=== PATIENT | female | born 1955 | race Caucasian/White ===

== ENCOUNTER 2022-07-07 22:33 | Emergency (ER) | payer OTHER, SELFPAY ==
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
[2022-07-07 22:42] VITALS: BP 129/91; PULSE 64; RESP 16; TEMP 36.1; O2SAT 98; BMI 27.4
[2022-07-07 23:51] VITALS: BP 138/74; PULSE 65; RESP 16; TEMP 36.4; O2SAT 99
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
== END 2022-07-08 01:39 | disposition home or self-care (01) ==
PROVIDERS: Emergency Provider Internal Medicine
DX: S16.1XXA Strain of muscle, fascia and tendon at neck level, initial encounter (principal); V43.62XA Car passenger injured in collision with other type car in traffic accident, initial encounter; Y93.89 Activity, other specified; Y92.414 Local residential or business street as the place of occurrence of the external cause; Y99.9 Unspecified external cause status
CPT/HCPCS: 72125; 99282; 99284

== ENCOUNTER 2022-08-20 11:27 | Outpatient (REF) | payer OTHER, SELFPAY ==
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
== END 2022-08-20 11:28 | disposition home or self-care (01) ==
LOC: HO.XRAY 11:27
PROVIDERS: Visit Provider Chiropractor
DX: M54.50 Low back pain, unspecified (principal)
CPT/HCPCS: 72110

== ENCOUNTER 2024-04-07 12:33 | Outpatient (AMB) | payer OTHER, SELFPAY ==
--- NOTE | 2024-04-07 12:38 | A.OFFPC_ITS ---
Vital Signs 04/07/24 12:57 Height 5 ft 4.17 in Weight 177 lb 2 oz BMI 30.2 BP 118/74 Blood Pressure Location Rt brachial Position Sitting Pulse 78 Pulse Source Pulse Oximeter Pulse Oximetry (%) 98 Oxygen Delivery Method Room Air Intake Visit Reasons: new patient to establish Splitting Machine Operator Required: No Accompanied by: Self / Same As Patient Allergies Gadolinium-Containing Contrast Medi Allergy (Severe, Verified 04/07/24 13:24) allergice ibuprofen [From Advil] Adverse Reaction (Intermediate, Verified 04/07/24 13:24) sensitivity adhesive tape Adverse Reaction (Unknown, Verified 04/07/24 13:24) Sensitivity codeine Adverse Reaction (Verified 04/07/24 13:24) Unknown Sulfa (Sulfonamide Antibiotics) Adverse Reaction (Verified 04/07/24 13:24) Unknown Medication List - Last Reconciled 04/07/24 by Rodrigo Kelly PA-C [id number] 250-250-65 mg (Excedrin Extra Strength) 2 tabs PO Q6H PRN cholecalciferol (vitamin D3) 25 mcg PO DAILY fluoxetine 20 mg PO TID lacosamide (Vimpat) 100 mg PO BID typhoid vaccin,live,attenuated (Vivotif) take 1 cap every other day for 4 doses (days 1,3,5,7); finish at least 1wk before exposure PO Tobacco use date assessed: 04/07/24 Fall risk assessment: No Falls in past year Last assessed Fall Risk: 04/07/24 Dental Screening Dental Screen Date: 04/07/24 Did you have a dental visit in the last 12 months?: Yes Did you have a dental problem in the last 6 months where you did not have access to dental care?: No Was dental information given to patient?: Patient has dentist HPI new patient to establish HPI Details Patient is a 61-year-old female here today for a new patient visit. Patient's past medical history significant for migraine disorder, , h/h/o Uterine cancer, vitamin-D deficiency and anxiety. Does not recently moved to [facility] from [facility]. Concerns--> reports having bilateral hand sensation of swelling. She does report her rings are tight. Unclear etiology at this time. Will test for rheumatoid factor and get x-rays of both hands. .. Major depressive disorder: Has been on fluoxetine 60 mg for over 25 years. She reports her mental health has been very stable. She is considering weaning off of fluoxetine as she feels he does not need this medication anymore. PLAN: We plan to reduce fluoxetine by 20 mg every 3-4 weeks .. 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 Vladimir Holt)- [place] ( [place]). Okay for PCP to follow med and prescribe her seizure medication and continue to follow. She has not had a breakthrough seizure since childhood. .. History of uterine cancer: Has had a full hysterectomy . Obstructive sleep apnea: Diagnosed many years ago, does use a CPAP machine on a nightly basis with good effect. Does need new equipment for her CPAP masks/machine. .. Vaccine: utd with COVID, tetanus, pneumonia MAmmo: Has had mammo since age 21, has had abnormal urmila in the past. .. colon cancer screening: done in 2018 while in [place]-normal repeat 10 years [facility] Medical History (Updated 04/07/24 @ 13:39 by Rodrigo Kelly PA-C) Microscopic hematuria Hyperlipemia Refractive error Grand mal seizure Family history of sudden cardiac in daughter Chronic headaches Hemorrhoids Depression Osteoarthritis of knee Surgical History S/P arthroscopy of right knee Family History Father Glaucoma Maternal Aunt CAD (coronary artery disease) Paternal Grandmother CAD (coronary artery disease) Maternal Aunt Breast cancer Mother No problems noted. Maternal Grandmother Cancer of brain Social History Housing: House Alcohol intake: current Alcohol intake frequency: holidays/special occasions only Alcohol type: wine Patient Tobacco Use Status: Former Tobacco user e-Cigarette/Vaping Use: Never Used service: No Current occupational status: retired Current occupational exposures/hazards: No Cognitive needs: No Hearing needs: No Vision needs: No Questionnaire PHQ-9 Over the last 2 weeks, how often have you been bothered by any of the following problems? 1. Little interest or pleasure in doing things: not at all 2. Feeling down, depressed, or hopeless: not at all 3. Trouble falling or staying asleep, or sleeping too much: not at all 4. Feeling tired or having little energy: not at all 5. Poor appetite or overeating: not at all 6. Feeling bad about yourself - or that you are a failure or have let yourself or your family down: not at all 7. Trouble concentrating on things, such as reading the newspaper or watching television: not at all 8. Moving or speaking so slowly that other people could have noticed. Or the opposite - being so fidgety or restless that you have been moving around a lot more than usual: not at all 9. Thoughts that you would be better off or of hurting yourself in some way: not at all Total score: 0 Depression Screening Interpretation: Negative Depression Screening Done: Yes 23150 - PHQ-9 Billing: Yes Source: Developed by Drs. Leo Liu, Marilynn Reilly, Gerry Dos Santos and colleagues, with an educational skyla from [employer]. Thrive Questionnaire Date Thrive assessed: 04/07/24 I am a: Patient What is your living situation today?: I have a steady place to live Within the past 12 months, did the food you bought not last and you didn't have the money to get more?: Never true Within the past 12 months, did you worry whether your food would run out before you got money to buy more?: Never true Do you have trouble paying for medicines?: No Do you have trouble getting transportation to medical appointments?: No Do you have trouble paying your heating and electricity bill?: No Do you have trouble taking care of your child, family member or friend?: No Do you have trouble with day-to-day activities such as bathing, preparing meals, shopping, managing finances, etc.?: No Are you currently unemployed and looking for a job?: No Are you interested in more education?: No Please select the resources that you would like help with: None Currently or been in a relationship where the following occur: no concerns reported THRIVE Score: 0 AUDIT C Alcohol Use Questionnaire (AUDIT-C) 1. How often do you have a drink containing alcohol?: Monthly or less 2. How many drinks containing alcohol do you have on a typical day when you are drinking?: 1 or 2 Total Score: 1 POLY-7 AMB Questionnaire POLY-7 Date POLY - 7 assessed: 04/07/24 Feeling nervous, anxious, or on edge: 0 = Not at all Not being able to stop or control worryin = Not at all Worrying too much about different things: 0 = Not at all Trouble relaxin = Not at all Being so restless that it is hard to sit still: 0 = Not at all Becoming easily annoyed or irritable: 0 = Not at all Feeling afraid as if something awful might happen: 0 = Not at all Total POLY-7 score (0-4 normal; 5-9 mild; 10-14 moderate; 15-21 severe): 0 Source: Developed by Drs. Leo Liu, Marilynn Reilly, Gerry Dos Santos and colleagues, with an educational skyla from [employer]. POLY-7 Assessment Billing POLY-7 Assessment Tool: POLY-7 Assessment 70884 Review of Systems Const Denies headache(s) Eyes Denies loss of vision ENT Denies vertigo, Denies dizziness, Denies headache(s) and Denies sore throat Card Denies chest pain, Denies leg edema and Denies lightheadedness Resp Denies cough, Denies hemoptysis and Denies wheezing GI Denies abdominal pain, Denies melena, Denies constipation, Denies diarrhea and Denies vomiting Denies urinary frequency, Denies dysuria and Denies urinary urgency Musc Denies arthralgias, Denies joint swelling, Denies numbness and Denies tingling Neuro Denies Abnormal speech present, Denies behavioral changes, Denies vertigo, Denies dizziness, Denies headache(s), Denies loss of vision, Denies memory loss, Denies numbness and Denies tingling Psych Denies anxiety, Denies behavioral changes, Denies depression, Denies memory loss and Denies panic attacks Dre/Lymph Denies easy bleeding and Denies easy bruising Aller/Immun Denies wheezing Physical exam (Primary Care) Vital Signs: Last Vital Signs Pulse 78 04/07/24 12:57 BP 118/74 04/07/24 12:57 Pulse Ox 98 04/07/24 12:57 Oxygen Delivery Method Room Air 04/07/24 12:57 BMI result Body Mass Index 30.2 BMI Assessment/Plan discussion: High BMI High, discussed plan: lifestyle, weight reduction, dietary and physical activity Tobacco/Smoking Status: Tobacco use Status Tobacco use date assessed 04/07/24 04/07/24 13:02 Patient Tobacco Use Status Former Tobacco user 04/07/24 13:29 e-Cigarette/Vaping Use Never Used 04/07/24 13:22 PHQ-9: PHQ-9 Score PHQ-9: Total score 0 04/07/24 13:38 Depression Screening Interpretation: Negative Thrive Assessment: Date of Thrive Assessment Date Thrive assessed 04/07/24 04/07/24 13:02 Currently or been in a relationship where the following occur: no concerns reported Const General: healthy appearing, no acute distress, alert and awake Nutritional Appearance: well nourished Orientation/consciousness: oriented to person, oriented to place and oriented to time HENMT Ears: TM's normal bilaterally General nose exam: Normal nasal mucous membranes and turbinates present Eyes Conjunctivae: conjunctivae normal Sclerae: sclerae normal Pupils: Equal, round and reactive pupils present Neck Neck: Yes no lymphadenopathy and Yes no JVD Thyroid: Thyroid normal Carotids: no bruits Resp Effort & Inspection: normal respiratory effort and not tachypneic Auscultation: no crackles, no rales, no rhonchi and no wheezes Cardio Rate: regular rate Rhythm: regular rhythm Heart sounds: no murmurs and normal S1 and S2 GI Palpation (GI): Soft to palpation, nontender, no hepatomegaly and no splenomegaly Auscultation: normal bowel sounds Skin General skin exam: no rashes or lesions noted and dry skin Neuro General: oriented to person, oriented to place and oriented to time Cranial nerves: Yes Equal, round and reactive pupils present Speech: No Abnormal speech present Gait exam (Neuro): Normal gait present Motor exam (neuro): no tremor noted Extrem Right upper extremity: full ROM Left upper extremity: full ROM Right lower extremity: full ROM; no edema Left lower extremity: full ROM; no edema Psych Mental Status: mental status grossly normal Speech and movement: Normal speech and movement present Affect: normal affect Attitude: cooperative Thought process: Normal thought process present Assessment and Plan Assessment & Plan (1) Seizure disorder: Code(s): G40.909 - Epilepsy, unspecified, not intractable, without status epilepticus Plan: Has had a long history since childhood of grand mal seizure disorder. Has been on many different seizure medications in the past and found that Vimpat has been successful. Was followed by a neurologist in [place] and her seizure disorder has been very stable. (2) History of hysterectomy: Code(s): Z90.710 - Acquired absence of both cervix and uterus Plan: Has had history endometrial cancer. Did undergo a full hysterectomy. (3) Screening for diabetes mellitus (DM): Code(s): Z13.1 - Encounter for screening for diabetes mellitus (4) Borderline high cholesterol: Code(s): E78.9 - Disorder of lipoprotein metabolism, unspecified Plan: Has had a history of borderline high cholesterol. She was discussing being placed on a statin with her previous PCP. Will recheck fasting lipid panel with goal LDL to be below 160 (5) MDD (major depressive disorder), recurrent episode, mild: Code(s): F33.0 - Major depressive disorder, recurrent, mild Plan: PHQ-9 score 0 today in office. Has had a history major depressive disorder. She has been on fluoxetine 60 mg for quite some time. She is interested in weaning off of his medication. (6) History of endometrial cancer: Code(s): Z85.42 - Personal history of malignant neoplasm of other parts of uterus Plan: Was seeing a science professor in [place], did have a full hysterectomy with lymph node resection years ago. Still would like science professor evaluations on a 2-3 year basis. (7) Bilateral hand swelling: Code(s): M79.89 - Other specified soft tissue disorders Plan: Will send for x-rays to evaluate both hands (8) LONNIE (obstructive sleep apnea): Code(s): G47.33 - Obstructive sleep apnea (adult) (pediatric) Plan: Has a long history of obstructive sleep apnea. Does use a CPAP machine on a nightly basis with good effect on her sleep. Orders: Orders Complete Blood Count no Diff 04/07/24 Z13.1 - Encounter for screening for diabetes mellitus ROSA Reflex Titer and Pattern 04/07/24 M79.89 - Other specified soft tissue disorders Rheumatoid Factor 04/07/24 M79.89 - Other specified soft tissue disorders MM screening mammo BI 04/07/24 Z12.31 - Encounter for screening mammogram for malignant neoplasm of breast Lipid Panel 04/07/24 E78.9 - Disorder of lipoprotein metabolism, unspecified Comprehensive [place]. Panel Fast 04/07/24 Z13.1 - Encounter for screening for diabetes mellitus XR hand RT 2V 04/07/24 M79.89 - Other specified soft tissue disorders XR hand LT 2V 04/07/24 M79.89 - Other specified soft tissue disorders Medications: New fluoxetine administer in the morning and at noon/midday 20 mg PO TID 90 days 270 tabs 1RF F33.0 - Major depressive disorder, recurrent, mild Changed From lacosamide (Vimpat) 100 mg PO BID 30 tabs 0RF G40.909 - Epilepsy, unspecified, not intractable, without status epilepticus To lacosamide (Vimpat) 100 mg PO BID 90 days 180 tabs 1RF G40.909 - Epilepsy, unspecified, not intractable, without status epilepticus Coding Level of Care Code New Pt Level 4 (73503) Diagnoses Seizure disorder G40.909 History of hysterectomy Z90.710 Screening for diabetes mellitus (DM) Z13.1 Borderline high cholesterol E78.9 MDD (major depressive disorder), recurrent episode, mild F33.0 History of endometrial cancer Z85.42 Bilateral hand swelling M79.89 LONNIE (obstructive sleep apnea) G47.33 Additional Codes POLY-7 Assessment Billing - POLY-7 Assessment Tool: POLY-7 Assessment 87770 ([id number])
[2024-04-07 12:57] VITALS: BP 118/74; PULSE 78; O2SAT 98; BMI 30.2
== END 2024-04-07 13:41 | disposition home or self-care (01) ==
PROVIDERS: Visit Provider Physician Assistant
DX: G40.909 Epilepsy, unspecified, not intractable, without status epilepticus (principal); F33.0 Major depressive disorder, recurrent, mild; Z90.710 Acquired absence of both cervix and uterus; Z13.1 Encounter for screening for diabetes mellitus; E78.9 Disorder of lipoprotein metabolism, unspecified; Z85.42 Personal history of malignant neoplasm of other parts of uterus; M79.89 Other specified soft tissue disorders; G47.33 Obstructive sleep apnea (adult) (pediatric)
CPT/HCPCS: 99204

== ENCOUNTER 2024-04-15 08:32 | Outpatient (REF) | payer OTHER, SELFPAY ==
--- NOTE | ~2024-04-15 | XR_ITS ---
EXAMINATION: XR HAND, BILATERAL CLINICAL INFORMATION: Bilateral hand pain. COMPARISON: None available. TECHNIQUE: 3 views of each hand. FINDINGS: Mild-moderate osteoarthritis of the 1st CMC joint bilaterally. Moderate osteoarthritis also of the 1st interphalangeal joint. Mild degenerative changes of the interphalangeal joints which appear bilateral and symmetric. No erosions. No acute osseous abnormality. XR/XR hand RT 2V IMPRESSION: [id number] degenerative changes of both hands as described.
--- NOTE | ~2024-04-15 | XR_ITS ---
EXAMINATION: XR HAND, BILATERAL CLINICAL INFORMATION: Bilateral hand pain. COMPARISON: None available. TECHNIQUE: 3 views of each hand. FINDINGS: Mild-moderate osteoarthritis of the 1st CMC joint bilaterally. Moderate osteoarthritis also of the 1st interphalangeal joint. Mild degenerative changes of the interphalangeal joints which appear bilateral and symmetric. No erosions. No acute osseous abnormality. XR/XR hand LT 2V IMPRESSION: [id number] degenerative changes of both hands as described.
[2024-04-15 09:35] LABS: Hematocrit 39.5 % (37.0-47.0); Hemoglobin 12.8 g/dl (12.0-16.0); Mean Corpuscular HGB Conc 32.4 g/dl (31.0-35.0); Mean Corpuscular Hemoglobin 30.4 pg (27.0-33.0); Mean Corpuscular Volume 93.8 fL (80.0-98.0); Mean Platelet Volume 11.4 fL (9.4-12.3); Platelet Count 239 X10*3/uL (160-400); Red Blood Count 4.21 X10*6/uL (4.20-5.50); White Blood Count 4.6 X10*3/uL (4.8-10.8)
[2024-04-15 09:55] LABS: Rheumatoid Factor < 13.0 IU/mL (<15.0)
[2024-04-15 10:02] LABS: Alanine Aminotransferase 14 U/L (0-31); Albumin Level 4.1 g/dL (3.5-5.0); Alkaline Phosphatase 90 U/L (39-117); Anion Gap 13 (12-20); Aspartate Amino Transferase 18 U/L (5-31); Bilirubin Total 0.3 mg/dL (0.0-1.0); Blood Urea Nitrogen 11 mg/dL (9-16); Calcium 9.3 mg/dL (8.4-10.2); Carbon Dioxide 25 mmol/L (22-29); Chloride 104 mmol/L (96-108); Cholesterol 203 mg/dL (<200); Estimated Glomerular Filt Rate > 60; Glucose Fasting 86 mg/dL (60-99); HDL Cholesterol 57 mg/dL (>40); LDL Cholesterol Calculated 129 mg/dL (<100); Potassium 4.3 mmol/L (3.3-5.1); Sodium 138 mmol/L (135-145); Total Protein 7.1 g/dL (6.5-8.0); Triglycerides 89 mg/dL (<150)
[2024-04-19 14:44] LABS: Anti Nuclear Antibody Screen NEGATIVE (NEGATIVE)
== END 2024-04-15 08:33 | disposition home or self-care (01) ==
LOC: HO.LAB 08:32
PROVIDERS: PCP Physician Assistant; Visit Provider Physician Assistant
DX: M79.89 Other specified soft tissue disorders (principal); E78.9 Disorder of lipoprotein metabolism, unspecified; Z13.1 Encounter for screening for diabetes mellitus; M79.642 Pain in left hand; M79.641 Pain in right hand; M18.0 Bilateral primary osteoarthritis of first carpometacarpal joints
CPT/HCPCS: 36415; 73120; 80053; 80061; 85027; 86038; 86431

== ENCOUNTER 2024-04-27 13:37 | Outpatient (REF) | payer MEDICARE, SELFPAY ==
--- NOTE | ~2024-04-27 | MM_ITS ---
EXAMINATION: MM SCREENING DIGITAL BREAST TOMOSYNTHESIS, BILATERAL CLINICAL INFORMATION: Screening. Asymptomatic. S/P bilateral, benign excisions. COMPARISON: Mammography: This study is compared with prior exams dating back to 2020. TECHNIQUE: Digital breast tomosynthesis is performed in both the craniocaudal and mediolateral oblique views along with computer-aided detection (CAD). Synthesized 2D images are generated from the tomosynthesis. FINDINGS: There are scattered areas of fibroglandular density (ACR BI-RADS breast composition Category b). There are no significant masses, abnormal calcifications, or other abnormalities. Bilateral post-surgical changes are present. MM/MM tomosynthesis screening BI IMPRESSION: No mammographic evidence of malignancy. ASSESSMENT: BI-RADS BI-RADS 2 - Benign Findings RECOMMENDATION: Routine annual mammography screening. 1 year F/U This examination should not preclude the clinical evaluation of a suspicious palpable abnormality. This patient's information was entered into a reminder system with a target due date for their next mammogram.
== END 2024-04-27 13:38 | disposition home or self-care (01) ==
LOC: HO.MAMMO 13:37
PROVIDERS: PCP Physician Assistant; Visit Provider Physician Assistant
DX: Z12.31 Encounter for screening mammogram for malignant neoplasm of breast (principal)
CPT/HCPCS: 77063; 77067

== ENCOUNTER → 2024-04-27 14:00 | Outpatient (BNV) | payer MEDICARE, SELFPAY | PROVIDERS: PCP Physician Assistant; Visit Provider Radiology Diagnostic Radiology | DX: Z12.31 Encounter for screening mammogram for malignant neoplasm of breast (principal) | CPT/HCPCS: 77063; 77067 ==

== ENCOUNTER 2024-05-22 10:23 | Emergency (ER) | payer MEDICARE, SELFPAY ==
--- NOTE | ~2024-05-22 | XR_ITS ---
EXAMINATION: XR KNEE, RIGHT XR ANKLE, LEFT CLINICAL INFORMATION: Fall. Pain. COMPARISON: None. TECHNIQUE: AP, bilateral oblique, and lateral views of the right knee. AP, lateral, and mortise views of the left ankle were obtained. FINDINGS: Right knee: Orthopedic screws related to remote tibial tuberosity translocation. No evidence of hardware complication. Moderate tricompartmental joint space narrowing with prominent marginal osteophytes. No concerning lytic or blastic osseous lesion. No fracture or dislocation. Small to moderate knee joint effusion. Left ankle: No acute fracture or dislocation. The ankle mortise is maintained. No joint space narrowing or marginal osteophytes. Moderate plantar calcaneal spur. Mild circumferential soft tissue swelling. XR/XR knee RT 3V IMPRESSION: RIGHT KNEE: No acute fracture or dislocation. Moderate tricompartmental osteoarthritis. Small to moderate knee joint effusion. LEFT ANKLE: Mild circumferential soft tissue swelling without acute osseous abnormality. Moderate plantar calcaneal spur.
--- NOTE | ~2024-05-22 | XR_ITS ---
EXAMINATION: XR KNEE, RIGHT XR ANKLE, LEFT CLINICAL INFORMATION: Fall. Pain. COMPARISON: None. TECHNIQUE: AP, bilateral oblique, and lateral views of the right knee. AP, lateral, and mortise views of the left ankle were obtained. FINDINGS: Right knee: Orthopedic screws related to remote tibial tuberosity translocation. No evidence of hardware complication. Moderate tricompartmental joint space narrowing with prominent marginal osteophytes. No concerning lytic or blastic osseous lesion. No fracture or dislocation. Small to moderate knee joint effusion. Left ankle: No acute fracture or dislocation. The ankle mortise is maintained. No joint space narrowing or marginal osteophytes. Moderate plantar calcaneal spur. Mild circumferential soft tissue swelling. XR/XR ankle LT 2V IMPRESSION: RIGHT KNEE: No acute fracture or dislocation. Moderate tricompartmental osteoarthritis. Small to moderate knee joint effusion. LEFT ANKLE: Mild circumferential soft tissue swelling without acute osseous abnormality. Moderate plantar calcaneal spur.
[2024-05-22 10:30] VITALS: BP 145/79; PULSE 82; RESP 16; TEMP 37.1; O2SAT 98; BMI 30.8
--- NOTE | 2024-05-22 11:24 | ED.FALL ---
HPI - Fall General Chief Complaint: Fall Stated Complaint: l Ankle R Knee Pain S/P Fall 05/20 & 05/21 Time Seen by Provider: 05/22/24 10:40 Source: patient Mode of arrival: ambulatory Limitations: no limitations History of Present Illness ED Provider: Mikala Perry APRN HPI Narrative: 69-year-old female with a history of seizure disorder, depression, uterine cancer in remission, osteoarthritis presents the ER with complaints of right knee pain and left ankle pain after 2 falls in the last 48 hours. Patient reports she initially had a fall after walking her dog landing on her right knee, right elbow and right shoulder. There was no hitting of the head or loss of consciousness. She was able to get up after this. Yesterday she had a inversion injury of the left ankle causing a twisting injury of her right knee and a 2nd fall. She does report a history of right knee surgery with a surgeon in [place]. She does not currently have an orthopedic. She reports since the fall she has had pain and swelling to the left ankle as well as the right knee. She has taken Excedrin with aspirin intermittently for pain. She denies any associated numbness, tingling, weakness of the extremities. Related Data Home Medications ?Medication ?Instructions ?Recorded ?Confirmed dudpoja-jnbajnuuygahn-hckickyl 250 2 tab PO Q6H PRN 04/07/24 04/07/24 mg-250 mg-65 mg tablet (Excedrin Extra Strength) typhoid vaccin,live,attenuated 2 See Rx Instructions PO .COMPLEX 04/07/24 04/07/24 billion unit capsule,delayed release (Vivotif) Previous Rx's ?Medication ?Instructions ?Recorded cholecalciferol (vitamin D3) 25 25 mcg PO DAILY #30 tabs 04/06/24 mcg (1,000 unit) tablet fluoxetine 20 mg tablet 20 mg PO TID 90 days #270 tabs 04/07/24 lacosamide 100 mg tablet (Vimpat) 100 mg PO BID 90 days #180 tabs 04/07/24 Allergies Allergy/AdvReac Type Severity Reaction Status Date / Time Gadolinium-Containing Allergy Severe allergice Verified 05/22/24 10:34 Contrast Medi ibuprofen [From Advil] AdvReac Intermediate sensitivity Verified 05/22/24 10:34 adhesive tape AdvReac Unknown Sensitivity Verified 05/22/24 10:34 codeine AdvReac Unknown Verified 05/22/24 10:34 Sulfa (Sulfonamide AdvReac Unknown Verified 05/22/24 10:34 Antibiotics) MRI dye AdvReac warmth Uncoded 05/22/24 10:34 Review of Systems Review of Systems: Yes all other systems are reviewed and are negative Constitutional: Constitutional: Reports no additional constitutional complaints, Denies body ache(s), Denies chills, Denies fever(s), Denies headache(s) and Denies weakness Eyes: Eyes: Reports no additional eye complaints and Denies change in vision ENT: Reports system reviewed and no additional complaints, except as documented, Denies dizziness, Denies headache(s), Denies nasal congestion, Denies nasal discharge and Denies neck pain Cardiovascular: Cardiovascular: Reports no additional cardiovascular complaints, Denies chest pain, Denies leg edema and Denies dyspnea Respiratory: Respiratory: Reports no additional respiratory complaints, Denies cough and Denies dyspnea Gastrointestinal: Gastrointestinal: Reports no additional gastrointestinal complaints, Denies abdominal pain, Denies diarrhea, Denies nausea and Denies vomiting Genitourinary: Genitourinary: Reports no additional female genitourinary complaints and Denies urinary incontinence Musculoskeletal: Musculoskeletal: Reports no additional musculoskeletal complaints, Denies back pain, Reports arthralgias, Reports joint swelling, Denies neck pain, Denies numbness and Denies tingling Integumentary/Breasts: Skin/Breast: Reports system reviewed and no additional complaints, except as docu and Denies rash Neurologic: Reports system reviewed and no additional complaints, except as documented, Denies Abnormal speech present, Denies dizziness, Denies headache(s), Denies numbness, Denies tingling and Denies weakness [facility] Past Medical History Attestation statement: The following information was validated with the patient. Source: old records reviewed and nursing notes reviewed Medical History Microscopic hematuria Hyperlipemia Refractive error Grand mal seizure Family history of sudden cardiac in daughter Chronic headaches Hemorrhoids Depression Osteoarthritis of knee Surgical History S/P arthroscopy of right knee Family History Family History Father Glaucoma Maternal Aunt CAD (coronary artery disease) Paternal Grandmother CAD (coronary artery disease) Maternal Aunt Breast cancer Mother No problems noted. Maternal Grandmother Cancer of brain Social History Social History Housing: House Alcohol intake: current Alcohol intake frequency: holidays/special occasions only Alcohol type: wine Patient Tobacco Use Status: Former Tobacco user e-Cigarette/Vaping Use: Never Used Advance Directives: No Advance Directives Information Provided: No service: No Current occupational status: retired Current occupational exposures/hazards: No Cognitive needs: No Hearing needs: No Vision needs: No Physical Exam Vital Signs: Vital Signs: Last Vital Signs Temp 97.3 F 05/22/24 12:48 Pulse 71 05/22/24 12:48 Resp 17 05/22/24 12:48 BP 129/66 05/22/24 12:48 Pulse Ox 97 05/22/24 12:48 O2 Del Method Room Air 05/22/24 12:48 BMI result Body Mass Index 30.8 Const: General: cooperative, healthy appearing, comfortable and no acute distress Orientation/consciousness: patient oriented x3 Limitations: no limitations HEENT: Head: Yes normal to inspection Ears: hearing grossly normal bilaterally General nose exam: Normal external nose present Face and sinus: Yes normal facial exam Mouth: Normal oral and palatal mucosa present Throat: Yes posterior oropharynx normal Eyes: General: appearance normal, both eyes and all related structures Pupils: Equal, round and reactive pupils present Neck: Neck: Yes normal visual inspection Chest: Chest palpation & inspection: normal inspection of the chest Resp: Effort & Inspection: normal respiratory effort Auscultation: clear to auscultation bilaterally Cardio: Rate: regular rate Rhythm: regular rhythm Peripheral pulses: Peripheral pulses 2+ throughout GI: Inspection: Yes normal to inspection Palpation (GI): Soft to palpation and nontender Auscultation: normal bowel sounds Back/Spine/Pelvis: Thoracic/Lumbar Spine: thoracic and lumbar spine normal to inspection Skin: General skin exam: no rashes or lesions noted Neuro: General: patient oriented x3, no focal motor deficits and normal sensation to monofilament Cranial nerves: Yes Equal, round and reactive pupils present Cognition (Neuro): normal cognition Speech: No Abnormal speech present Gait exam (Neuro): Normal gait present Motor exam (neuro): 5/5 motor strength present throughout Extrem: Other: Over the left lateral ankle there is swelling and ecchymosis. There is also some mild swelling over the anterior and lateral aspect. There is full active and passive range of motion. There are 2+ DP and PT pulses. Normal sensation. No posterior calf or ankle pain. No ligamental laxity. Negative Decker test To the right knee there is moderate swelling. The knee is held in partial flexion and the patient is unable to fully extend the right knee. There is tenderness over the anterior and lateral aspect. There are 2+ DP and PT pulses. Normal distal sensation. Distal range of motion is normal General: Yes normal to inspection Course Course Course Narrative: X-ray show moderate right knee effusion. Explained to patient this is likely reactive from her sprain. We will place her in Thiago wrap and recommend that she follow up with Orthopedics. Her x-rays of her left ankle show no fracture. Likely sprain. Patient placed in air splint. Reviewed worrisome signs and symptoms of when to return to the emergency room. Comfortable plan for discharge home. Procedures Orthopedic Splinting/Casting Injury #1: Side: left Lower Extremity Injury Location: ankle Lower Extremity Immobilizer: AirCast and Thiago wrap Other Orthopedic Equipment: crutches Medical Decision Making Medical Decision Making MDM Narrative: 69-year-old female with a history of seizure disorder, depression, uterine cancer in remission, osteoarthritis presents the ER with complaints of right knee pain and left ankle pain after 2 falls in the last 48 hours. Patient reports she initially had a fall after walking her dog landing on her right knee, right elbow and right shoulder. There was no hitting of the head or loss of consciousness. She was able to get up after this. Yesterday she had a inversion injury of the left ankle causing a twisting injury of her right knee and a 2nd fall. She does report a history of right knee surgery with a surgeon in [place]. She does not currently have an orthopedic. She reports since the fall she has had pain and swelling to the left ankle as well as the right knee. She has taken Excedrin with aspirin intermittently for pain. She denies any associated numbness, tingling, weakness of the extremities. Over the left lateral ankle there is swelling and ecchymosis. There is also some mild swelling over the anterior and lateral aspect. There is full active and passive range of motion. There are 2+ DP and PT pulses. Normal sensation. No posterior calf or ankle pain. No ligamental laxity. Negative Decker test To the right knee there is moderate swelling. The knee is held in partial flexion and the patient is unable to fully extend the right knee. There is tenderness over the anterior and lateral aspect. There are 2+ DP and PT pulses. Normal distal sensation. Distal range of motion is normal Will obtain x-rays. Of note patient reports limited range of motion of the right knee status post previous surgery and she tells me that she normally at baseline can not fully extend her knee. Differential Diagnosis Differential Diagnoses: The differential diagnosis associated with the presentation includes Fracture, sprain, strain, ligamental injury Low suspicion for dislocation, complex fracture, vascular injury Admission/Observation Consideration of admission/observation: Escalation of care including admission/observation considered Low suspicion for dislocation, complex fracture, vascular injury requiring advanced imaging, urgent orthopedic consultation Independent Interpretation I performed an independent interpretation of an: Plain X-Ray Interpretation: I independently reviewed the x-ray and agree with the radiology report Radiology Impression Discussion of test interpretation with radiology: I have reviewed the radiologist's reading. Radiologist Impression: [address] [address] XRay Report Signed Patient: Kirstin Chávez MR#: [id number] : 1955 Acct:[id number] Age/Sex: 69 / F ADM Date: 05/22/24 Loc: .ED Attending Dr: Ordering Physician: Mikala Puente NP Date of Service: 05/22/24 Procedure(s): XR ankle LT 2V Accession Number(s): [id number] cc: Rodrigo Kelly PA-C; Mikala Puente NP~ EXAMINATION: XR KNEE, RIGHT XR ANKLE, LEFT CLINICAL INFORMATION: Fall. Pain. COMPARISON: None. TECHNIQUE: AP, bilateral oblique, and lateral views of the right knee. AP, lateral, and mortise views of the left ankle were obtained. FINDINGS: Right knee: Orthopedic screws related to remote tibial tuberosity translocation. No evidence of hardware complication. Moderate tricompartmental joint space narrowing with prominent marginal osteophytes. No concerning lytic or blastic osseous lesion. No fracture or dislocation. Small to moderate knee joint effusion. Left ankle: No acute fracture or dislocation. The ankle mortise is maintained. No joint space narrowing or marginal osteophytes. Moderate plantar calcaneal spur. Mild circumferential soft tissue swelling. XR/XR ankle LT 2V IMPRESSION: RIGHT KNEE: No acute fracture or dislocation. Moderate tricompartmental osteoarthritis. Small to moderate knee joint effusion. LEFT ANKLE: Mild circumferential soft tissue swelling without acute osseous abnormality. Moderate plantar calcaneal spur. Tests considered The following testing was considered but not selected: Low suspicion for dislocation, complex fracture, vascular injury requiring advanced imaging Prescription Management I considered prescription management with: Pain Medication Discharge Plan Discharge Clinical Impression: Left ankle sprain, Knee effusion, right Patient Disposition: Home, Self-Care Instructions: Ankle Sprain (ED), Crutch Instructions (ED), Sprain (ED), How to Use an Elastic Bandage (ED), R.I.C.E. Treatment (ED), Cold Compress or Soak (ED) Additional Instructions: Your x-ray of your left ankle shows no fractures. This is likely a sprain. Please use the air splint or an Thiago wrap for comfort at home. Rest, ice, elevate Your x-ray of your right knee does not show any fracture. There is an effusion which is fluid within the joint. This is from the injury and will re-absorb. We do recommend using a compression bandage, resting icing and elevating the joint. You will likely need to follow up with orthopedics for your right knee as he may need additional imaging such as an MRI which we discussed. Speak to your insurance as you may need a referral from her primary care. Prescriptions: No Action cholecalciferol (vitamin D3) 25 mcg (1,000 unit) tablet 25 mcg PO DAILY Qty: 30 0RF Excedrin Extra Strength 250-250-65 mg tablet 2 tab PO Q6H PRN Vivotif 2 billion unit capsule,delayed release(DR/EC) See Rx Instructions PO .COMPLEX Rx Instructions: take 1 cap every other day for 4 doses (days 1,3,5,7); finish at least 1wk before exposure PO lacosamide [Vimpat] 100 mg tablet 100 mg PO BID 90 Days Qty: 180 1RF fluoxetine 20 mg tablet 20 mg PO TID 90 Days Qty: 270 1RF Rx Instructions: administer in the morning and at noon/midday Referrals: [facility] [place] Orthopedic Surgeons [Provider Group] - 1 week Interventions: ED Discharge Assessment Last Done: 05/22/24 12:48 Discharge Date/Time: 05/22/24 12:49 Print Language: Swiss
[2024-05-22 12:00] VITALS: BP 129/66; PULSE 71; RESP 17; TEMP 36.3; O2SAT 97
[2024-05-22 12:48] VITALS: BP 129/66; PULSE 71; RESP 17; TEMP 36.3; O2SAT 97
== END 2024-05-22 12:49 | disposition home or self-care (01) ==
PROVIDERS: Emergency Provider Emergency Medicine; PCP Physician Assistant
DX: M25.461 Effusion, right knee (principal); S93.402A Sprain of unspecified ligament of left ankle, initial encounter; W18.30XA Fall on same level, unspecified, initial encounter; Y93.K1 Activity, walking an animal; Y92.480 Sidewalk as the place of occurrence of the external cause; Y99.9 Unspecified external cause status
CPT/HCPCS: 73562; 73600; 99283

== ENCOUNTER 2024-06-08 18:35 | Outpatient (REF) | payer MEDICARE, SELFPAY ==
--- NOTE | ~2024-06-08 | MR_ITS ---
EXAMINATION: MR KNEE WITHOUT CONTRAST, RIGHT CLINICAL INFORMATION: M25.361 - Other instability, right knee. Tibial osteotomy. Fall recently. COMPARISON: Radiographs dated 05/22/2024. TECHNIQUE: MRI of the knee without contrast was performed using routine sequences on a high-field scanner. FINDINGS: MENISCI: Medial Meniscus: Inner margin fraying at the posterior root. No tears. Lateral Meniscus: Anterior horn appears macerated with complex tearing. There is a lateral extrusion of the meniscal body. LIGAMENTS: Cruciate: PCL is intact. The ACL is intact though diminutive with medial bowing produced by mass effects from the osteophytes at the lateral femoral condyle, likely due to an old injury or degenerative attrition. Collateral: Intact EXTENSOR MECHANISM: Intact ARTICULAR CARTILAGE/BONE: Chronic postoperative changes of prior tibial osteotomy are again noted. There is a linear band of edema signal and low T1 signal within the fibular head, most consistent with a nondisplaced trabecular fracture. No additional fractures are identified. There is edema signal in the posterior/proximal aspects of the medial and lateral femoral condyles which may correspond to osseous contusions. Patellofemoral Compartment: Moderate nonuniform articular cartilage loss at the patella and trochlea is more pronounced at the small medial and lateral facets with areas of full-thickness cartilage loss, cortical irregularity, and central osteophytes. There are large marginal osteophytes about the patella and trochlea. Lateral trochlear inclination angle measures 8 degrees. Sulcus angle measures 149 degrees, shallow. Trochlear facet ratio measures 0.35, consistent with relative hypoplasia of the medial facet. TT TG distance measures 1.2 cm. Medial Compartment: There is moderate nonuniform chondral thinning at the medial femoral condyle with areas of full-thickness cartilage loss, subchondral cystic change, marginal osteophytes, nonmarginal osteophytes, and subchondral edema. More mild chondral thinning at the medial tibial plateau. Large marginal osteophytes. Lateral Compartment: Blhgypat-[id number] nonuniform chondral thinning is present at the lateral femoral condyle posterior weightbearing and non-weightbearing surfaces and at the medial third of the lateral tibial plateau. More [id number] chondral thinning is present at the anterior weightbearing surface of the lateral femoral condyle and anterior aspect of the lateral tibial plateau. JOINT FLUID AND BURSAE: Moderate-sized joint effusion. Moderate-sized Castellano's cyst. A 1 cm osseous loose body is present in the lateral recess of the patellofemoral compartment. MR/MR knee RT wo con IMPRESSION: 1. Nondisplaced trabecular fracture at the fibular head. Probable osseous contusions at the posterior/proximal margins of the medial and lateral femoral condyles. 2. Ntnwlnhj-kg-[id number] tricompartmental osteoarthritis, most pronounced in the patellofemoral compartment. 3. Complex tear of the anterior horn of the lateral meniscus with lateral extrusion of the meniscal body. 4. Moderate-sized joint effusion and Castellano's cyst. 5. Diminutive ACL, likely due to degenerative attrition or an old injury.
== END 2024-06-08 18:36 | disposition home or self-care (01) ==
LOC: HO.MRI 18:35
PROVIDERS: PCP Physician Assistant; Visit Provider Physician Assistant
DX: M25.361 Other instability, right knee (principal); S89.91XA Unspecified injury of right lower leg, initial encounter
CPT/HCPCS: 73721

== ENCOUNTER 2024-06-17 08:51 | Outpatient (AMB) | payer MEDICARE, SELFPAY ==
--- NOTE | 2024-06-17 09:03 | A.OFFVIS_ITS ---
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/24 Allergies Gadolinium-Containing Contrast Medi Allergy (Severe, Verified 06/17/24 09:05) allergice ibuprofen [From Advil] Adverse Reaction (Intermediate, Verified 06/17/24 09:05) sensitivity adhesive tape Adverse Reaction (Unknown, Verified 06/17/24 09:05) Sensitivity codeine Adverse Reaction (Verified 06/17/24 09:05) Unknown Sulfa (Sulfonamide Antibiotics) Adverse Reaction (Verified 06/17/24 09:05) Unknown MRI dye Adverse Reaction (Uncoded 05/22/24 10:34) warmth HPI HPI MEAT PROCESSOR- RT knee pain, 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 Kirstin is a 69 year old female who presents today as a new patient for a evaluation of her right knee/possible left ankle injury, DOIs 05/20/24 and 05/21/24. Patient had a MRI done on 06/08/24 for her right knee. Patient report she had to fall when she was walking her dog and she lost balance leading her to fall on her right knee, then the second injury that affected her left ankle and right knee. Patient had right tibial tubercle osteotomy surgery in [place] on 2011. She mentions that she is having a lot of pain and she feels like it is getting worse. [facility] Medical History Microscopic hematuria Hyperlipemia Refractive error Grand mal seizure Family history of sudden cardiac in daughter Chronic headaches Hemorrhoids Depression Osteoarthritis of knee Surgical History S/P arthroscopy of right knee Family History Father Glaucoma Maternal Aunt CAD (coronary artery disease) Paternal Grandmother CAD (coronary artery disease) Maternal Aunt Breast cancer Mother No problems noted. Maternal Grandmother Cancer of brain Social History Housing: House Alcohol intake: current Alcohol intake frequency: holidays/special occasions only Alcohol type: wine Patient Tobacco Use Status: Former Tobacco user e-Cigarette/Vaping Use: Never Used service: No Current occupational status: retired Current occupational exposures/hazards: No Cognitive needs: No Hearing needs: No Vision needs: No Review of Systems Const All systems reviewed & are unremarkable except as noted in HPI and below Physical Exam Extrem Other: Moderate right knee effusion 5-120 degrees of motion Medial and lateral joint line tenderness to palpation Results Reviewed Results Reviewed: Moderate to severe right knee osteoarthritis most prominent in the patellofemoral joint. She is status post tibial tubercle osteotomy as well. Her MRI redemonstrates severe tricompartmental disease Assessment & Plan Assessment & Plan (1) Localized osteoarthritis of right knee: Code(s): M17.11 - Unilateral primary osteoarthritis, right knee Category: Medical Plan: This is a 61-year-old woman with severe osteoarthritis of the right knee. She h as had prior surgery and there is evidence of patellofemoral disease that is severe. We discussed treatment options including injections and nonoperative management as well as operative management. She feels that she would like to be active and can not be and would like to pursue a knee replacement. I think this is reasonable given her prior surgery and injections but I would recommend that she work on range of motion prior as I think there is an element of acute inflammation. I discussed this with her. I will schedule her surgery for 3 months and I would see her back in approximately 6 weeks. I discussed the risks benefits and alternatives including but not limited to the risk of pain, infection, stiffness, need for further surgery as well as potential medical complications such as blood clots, pulmonary embolism and cardiac complications. Patient Instructions: Scribed by Lesli Jimenez medical malpractice paralegal, for Ayse Olmos PA-C on 06/17/2024 at 9:01 am, EST.? Coding Level of Care Code New Pt Level 4 (00088) Diagnoses Localized osteoarthritis of right knee M17.11
== END 2024-06-17 09:49 | disposition home or self-care (01) ==
PROVIDERS: PCP Physician Assistant; Visit Provider Physician Assistant
DX: M17.11 Unilateral primary osteoarthritis, right knee (principal)
CPT/HCPCS: 99204

== ENCOUNTER 2024-06-17 10:07 | Outpatient (REF) | payer MEDICARE, SELFPAY | END 2024-06-17 10:08 | disposition home or self-care (01) | LOC: HO.HOSX 10:07 | PROVIDERS: Visit Provider Physician Assistant | DX: M17.11 Unilateral primary osteoarthritis, right knee (principal) | CPT/HCPCS: 99202 ==

== ENCOUNTER 2024-06-23 09:00 | Outpatient (RCR) | payer MEDICARE, SELFPAY ==
--- NOTE | 2024-06-02 10:48 | MHC.OT.EP ---
[address] [phone] Occupational Therapy Plan of Care Patient Name: Kirstin Chávez Date of Evaluation: 06/02/24 Diagnosis: B/L hand pain and swelling Pain Location: Pain in B/L hands, primarily in CMCs Low resting pain, increases w/ use Pain Score: 2 Pain Scale Used: Numeric (0 - 10) Aggravating Factors: Pinching, opening containers Alleviating Factors: Heat, aspirin, Excedrin Assessment: 69 yo female presents w/ hx of hand pain and joint swelling over the past several years, but more pain recently and has had difficulty getting rings on and off. Hand x-rays show B/L CMC OA and OA in IPs. On assessment today, pt report primary pain is at B/L CMCs, tenderness to palpate base of thumb and with forceful pinching. She also has mild edema and start of small arthritic nodules on several digits, consistent w/ OA. Provocative testing also shows mild CTS B/L'ly and pt reports dropping items at times. We will continue brief course of hand therapy for education and progression of exercises for B/L hand OA and CTS w/ goal of Ind w/ HEP and self management of symptoms/pain. Frequency and Duration: The patient will be seen 1x/wk for 3 weeks Short Term Goals: Ind w/ heat/cold modalities as preferred Ind w/ joint protection (CMC) techniques Ind w/ HEP for OA and CTS Mcfp Goals: same as above Treatment Plan: Therapeutic Exercise Therapeutic Activity Home Exercise Program Splinting Neuro Re-ed Patient Education Edema Control ADL Training Paraffin MHP Cold Packs Joint Mobilization Soft Tissue Mobilization Kinesiotaping Electronically Signed By: Mey Lipscomb OTR/L CHT Please Sign and return to therapist. Thank you once again for your referral.
--- NOTE | 2024-07-29 15:24 | MHC.OT.DC ---
[address] [phone] F: [phone] Occupational Therapy Discharge Note Patient Name: Kirstin Chávez Provider: Rodrigo Kelly PA-C Diagnosis: B/L hand pain and swelling Date of Evaluation: 06/02/24 Date of Discharge: 07/29/24 Treatments to Date: 3 Cancellations to Date: 2 Discharge Status: Independent with HEP Patient Elected to Stop Discharge Summary: Kirstin was referred to OT w/ B/L hand pain and swelling. she was seen for brief course of OT with initiation of exercises and joint protection. She has not followed up in over a month for further visits, but at the time had good follow through w/ HEP and had been reporting less pain overall and increased awareness. We will discharge from OT services at this time, I anticipate she is doing well w/ home program. Electronically Signed By: Mey Lipscomb, OTR/L CHT Reviewed/agree with student documentation: Therapist: Please Sign and return to therapist, thank you for your referral.
== END 2024-07-29 15:25 | disposition home or self-care (01) ==
LOC: HO.OT 09:00
PROVIDERS: PCP Physician Assistant; Visit Provider Physician Assistant
DX: M79.89 Other specified soft tissue disorders (principal); M19.041 Primary osteoarthritis, right hand; M19.042 Primary osteoarthritis, left hand
CPT/HCPCS: 97110; 97140; 97165; 97535

== ENCOUNTER 2024-07-20 13:47 | Outpatient (AMB) | payer MEDICARE, SELFPAY ==
--- NOTE | 2024-07-20 13:48 | MHC.PC.OV ---
Intake Visit Reasons: COVID Pos. Formal Waiter/Waitress Required: No Accompanied by: Self / Same As Patient Allergies Gadolinium-Containing Contrast Medi Allergy (Severe, Verified 07/20/24 13:48) allergice ibuprofen [From Advil] Adverse Reaction (Intermediate, Verified 07/20/24 13:48) sensitivity adhesive tape Adverse Reaction (Unknown, Verified 07/20/24 13:48) Sensitivity codeine Adverse Reaction (Verified 07/20/24 13:48) Unknown Sulfa (Sulfonamide Antibiotics) Adverse Reaction (Verified 07/20/24 13:48) Unknown MRI dye Adverse Reaction (Uncoded 07/20/24 13:48) warmth Tobacco use date assessed: 04/07/24 Fall risk assessment: 2 + Falls in past year Last assessed Fall Risk: 07/20/24 Dental Screening Dental Screen Date: 04/07/24 HPI COVID Pos. HPI Details 69-year-old female with a history of seizure disorder hypercholesterolemia obstructive sleep apnea calling in for an acute problem.tested positive today, mylagia and fever last night , sore throat, runny nose, PFSH Medical History Microscopic hematuria Hyperlipemia Refractive error Grand mal seizure Family history of sudden cardiac in daughter Chronic headaches Hemorrhoids Depression Osteoarthritis of knee Surgical History S/P arthroscopy of right knee Family History Father Glaucoma Maternal Aunt CAD (coronary artery disease) Paternal Grandmother CAD (coronary artery disease) Maternal Aunt Breast cancer Mother No problems noted. Maternal Grandmother Cancer of brain Social History Housing: House Alcohol intake: current Alcohol intake frequency: holidays/special occasions only Alcohol type: wine Patient Tobacco Use Status: Former Tobacco user Tobacco use type: Cigarette e-Cigarette/Vaping Use: Never Used service: No Current occupational status: retired Current occupational exposures/hazards: No Cognitive needs: No Hearing needs: No Vision needs: No Questionnaire Thrive Questionnaire Date Thrive assessed: 04/07/24 POLY-7 AMB Questionnaire POLY-7 Date POLY - 7 assessed: 04/07/24 Source: Developed by Drs. Leo Liu, Marilynn Reilly, Gerry Dos Santos and colleagues, with an educational skyla from [employer]. Physical exam (Primary Care) Tobacco/Smoking Status: Tobacco use Status Tobacco use date assessed 04/07/24 07/20/24 13:49 Patient Tobacco Use Status Former Tobacco user 07/20/24 13:49 Tobacco use type Cigarette 07/20/24 13:49 e-Cigarette/Vaping Use Never Used 07/20/24 13:49 Thrive Assessment: Date of Thrive Assessment Date Thrive assessed 04/07/24 07/20/24 13:49 Telehealth Telehealth Telehealth Platform: Telephone (android) Location of provider rendering services: practice address Location of patient: address on file Patient Identification confirmed using: Name, : Yes Telehealth method: voice only Patient verbally consented to treatment: Yes Patient verbally consented to billing insurance company: Yes Patient informed of any privacy concerns related to visit: Yes Minutes spent on Phone/Video with Pt.: 15 Assessment and Plan Assessment & Plan (1) COVID-19 virus infection: Comment: July 20 2024 Code(s): U07.1 - COVID-19 Plan: For the sore throat can take Cepacol lozenges, discussed about Delsym to help with dry cough so she can rest and advised to increase oral fluids. Patient also can take Tylenol for chills and fever. Antiviral prescription sent in Medications: New nirmatrelvir-ritonavir 300 mg (150 mg x 2)-100 mg (Paxlovid) take TWO 150 mg tablets of nirmatrelvir with ONE 100 mg tablet of ritonavir twice daily for 5 days PO 30 ea 0RF Coding Level of Care Code Tele Est Pt Level 3 (49652) Diagnoses COVID-19 virus infection U07.1
== END 2024-07-20 16:08 | disposition home or self-care (01) ==
LOC: HO.HMCH 13:47
PROVIDERS: PCP Physician Assistant; Visit Provider Internal Medicine
DX: U07.1 COVID-19 (principal)

== ENCOUNTER → 2024-07-20 13:47 | Outpatient (BNVA) | payer MEDICARE, SELFPAY | PROVIDERS: PCP Physician Assistant; Visit Provider Internal Medicine ==

== ENCOUNTER 2024-07-29 09:04 | Outpatient (AMB) | payer MEDICARE, SELFPAY ==
[2024-07-29 09:06] VITALS: BMI 30.8
--- NOTE | 2024-07-29 09:06 | A.OFFVIS_ITS ---
Vital Signs 07/29/24 09:06 Height 5 ft 5 in Weight 185 lb BMI 30.8 Intake Visit Reasons: OV - Right knee OA - TKA in October Intake Note: Kirstin is a 69 year old female who presents today for a follow up of her right knee Moderate to severe OA. Patient report she had a fall on 05/20/24 when she was walking her dog and she lost balance leading her to fall on her right knee, then the second injury that affected her left ankle and right knee. Patient had right tibial tubercle osteotomy surgery in [place] on 2011. She mentions that she is having a lot of pain and she feels like it is getting worse. She was instructed to work on her ROM and is booked for Right TKA in October. Allergies Gadolinium-Containing Contrast Medi Allergy (Severe, Verified 07/29/24 09:06) allergice ibuprofen [From Advil] Adverse Reaction (Intermediate, Verified 07/29/24 09:06) sensitivity adhesive tape Adverse Reaction (Unknown, Verified 07/29/24 09:06) Sensitivity codeine Adverse Reaction (Verified 07/29/24 09:06) Unknown Sulfa (Sulfonamide Antibiotics) Adverse Reaction (Verified 07/29/24 09:06) Unknown MRI dye Adverse Reaction (Uncoded 07/29/24 09:06) warmth HPI HPI OV - Right knee OA - TKA in October: Details: Kirstin is a 69 year old female who presents today for a follow up of her right knee Moderate to severe OA. Patient report she had a fall on 05/20/24 when she was walking her dog and she lost balance leading her to fall on her right knee, then the second injury that affected her left ankle and right knee. Patient had right tibial tubercle osteotomy surgery in [place] on 2011. She mentions that she is having a lot of pain and she feels like it is getting worse. She was instructed to work on her ROM and is booked for Right TKA in October. She comes in today feeling better than at last visit but still feeling positive about upcoming arthroplasty. She describes intermittent episodes of severe pain and swelling. She feels that this has decreased quality of her life and she is looking forward to being more active. [facility] Medical History Microscopic hematuria Hyperlipemia Refractive error Grand mal seizure Family history of sudden cardiac in daughter Chronic headaches Hemorrhoids Depression Osteoarthritis of knee Surgical History S/P arthroscopy of right knee Family History Father Glaucoma Maternal Aunt CAD (coronary artery disease) Paternal Grandmother CAD (coronary artery disease) Maternal Aunt Breast cancer Mother No problems noted. Maternal Grandmother Cancer of brain Social History Housing: House Alcohol intake: current Alcohol intake frequency: holidays/special occasions only Alcohol type: wine Patient Tobacco Use Status: Former Tobacco user Tobacco use type: Cigarette e-Cigarette/Vaping Use: Never Used service: No Current occupational status: retired Current occupational exposures/hazards: No Cognitive needs: No Hearing needs: No Vision needs: No Physical Exam Vital Signs: BMI result Body Mass Index 30.8 Extrem Other: Moderate right knee effusion 5-120 degrees of motion Medial and lateral joint line tenderness to palpation Results Reviewed Results Reviewed: Moderate to severe right knee osteoarthritis most prominent in the patellofemoral joint. She is status post tibial tubercle osteotomy as well. Her MRI redemonstrates severe tricompartmental disease Assessment & Plan Assessment & Plan (1) Localized osteoarthritis of right knee: Code(s): M17.11 - Unilateral primary osteoarthritis, right knee Category: Medical Plan: This is a 69-year-old woman with severe osteoarthritis of the right knee. We discussed her diagnosis and the details surrounding arthroplasty. She is wanting to go forward with surgery. I did explain the risks, benefits and alternatives including the risk of infection, stiffness, need for further surgery as well as the medical risks such as blood clots with her. She expressed understanding. She will meet with Maggie and we will continue to obtain all of her medical records to obtain medical clearance. Coding Level of Care Code Est Pt Level 3 (48639) Diagnoses Localized osteoarthritis of right knee M17.11
== END 2024-07-29 09:57 | disposition home or self-care (01) ==
PROVIDERS: PCP Physician Assistant; Visit Provider Orthopaedic Surgery
DX: M17.11 Unilateral primary osteoarthritis, right knee (principal)
CPT/HCPCS: 99213

== ENCOUNTER → 2024-07-29 09:04 | Outpatient (BNVA) | payer MEDICARE, SELFPAY | PROVIDERS: PCP Physician Assistant; Visit Provider Orthopaedic Surgery | DX: M17.11 Unilateral primary osteoarthritis, right knee (principal) | CPT/HCPCS: 99212 ==

== ENCOUNTER 2024-08-26 08:31 | Outpatient (AMB) | payer MEDICARE, SELFPAY ==
--- NOTE | 2024-08-26 08:37 | MHC.PC.OV ---
Vital Signs 08/26/24 08:39 Height 5 ft 5 in Weight 179 lb 8 oz BMI 29.9 BP 120/76 Blood Pressure Location Lt brachial Position Sitting Pulse 78 Pulse Source Pulse Oximeter Pulse Oximetry (%) 98 Oxygen Delivery Method Room Air Intake Visit Reasons: Right TKA with Dr. Feng. Spinal/Block 10/06/24 Intake Note: Patient is here for a Pre-op for Right total knee replacement scheduled with Dr Feng on 10/06/24. Music Ministries Director Required: No Program Counselor: Not Required per policy Accompanied by: Self / Same As Patient Allergies Gadolinium-Containing Contrast Medi Allergy (Severe, Verified 08/26/24 08:59) allergice ibuprofen [From Advil] Adverse Reaction (Intermediate, Verified 08/26/24 08:59) sensitivity adhesive tape Adverse Reaction (Unknown, Verified 08/26/24 08:59) Sensitivity codeine Adverse Reaction (Verified 08/26/24 08:59) Unknown Sulfa (Sulfonamide Antibiotics) Adverse Reaction (Verified 08/26/24 08:59) Unknown MRI dye Adverse Reaction (Uncoded 08/26/24 08:59) warmth Medication List - Last Reconciled 08/26/24 by Rodrigo Kelly PA-C [id number]-tjfzuzpoltimm-[id number] 250-250-65 mg (Excedrin Extra Strength) 2 tabs PO Q6H PRN cholecalciferol (vitamin D3) 25 mcg PO DAILY fluoxetine 20 mg PO TID 90 days lacosamide (Vimpat) 100 mg PO BID 90 days typhoid vaccin,live,attenuated (Vivotif) take 1 cap every other day for 4 doses (days 1,3,5,7); finish at least 1wk before exposure PO Tobacco use date assessed: 08/26/24 Fall risk assessment: No Falls in past year Last assessed Fall Risk: 08/26/24 Dental Screening Dental Screen Date: 04/07/24 HPI Right TKA with Dr. Feng. Spinal/Block 10/06/24 HPI Details Patient is a 69-year-old female here today for a a preop visit. Patient is due for a right total knee arthroplasty in October of 2024 Patient's past medical history significant for migraine disorder, seizure disorder, h/h/o Uterine cancer, vitamin-D deficiency and anxiety. Patient has no past medical history significant for CVA, MS or Congestive heart failure. She is not on any anticoagulation or antiplatelet therapy at this time. For chronic medical conditions have all been stable for quite some time. CHRONIC MEDICAL CONDITION--> .. Major depressive disorder: Has been on fluoxetine 60 mg for over 25 years. She reports her mental health has been very stable. She is considering weaning off of fluoxetine as she feels he does not need this medication anymore. PLAN: We plan to reduce fluoxetine by 20 mg every 3-4 weeks .. 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 Vladimir Holt)- [place] ( [place]). Okay for PCP to follow med and prescribe her seizure medication and continue to follow. She has not had a breakthrough seizure since childhood. . Obstructive sleep apnea: Uses CPAP on a daily basis with good effect. [facility] Medical History Microscopic hematuria Hyperlipemia Refractive error Grand mal seizure Family history of sudden cardiac in daughter Chronic headaches Hemorrhoids Depression Osteoarthritis of knee Surgical History S/P arthroscopy of right knee Family History Father Glaucoma Maternal Aunt CAD (coronary artery disease) Paternal Grandmother CAD (coronary artery disease) Maternal Aunt Breast cancer Mother No problems noted. Maternal Grandmother Cancer of brain Social History Housing: House Alcohol intake: current Alcohol intake frequency: holidays/special occasions only Alcohol type: wine Patient Tobacco Use Status: Former Tobacco user Tobacco use type: Cigarette e-Cigarette/Vaping Use: Never Used Second Hand Smoke Exposure: Yes service: No Current occupational status: retired Current occupational exposures/hazards: No Cognitive needs: No Hearing needs: No Vision needs: No Questionnaire Thrive Questionnaire Date Thrive assessed: 04/07/24 AUDIT C Alcohol Use Questionnaire (AUDIT-C) 2. How many drinks containing alcohol do you have on a typical day when you are drinking?: 1 or 2 3. How often do you have six or more drinks on one occasion?: Never Total Score: 0 POLY-7 AMB Questionnaire POLY-7 Date POLY - 7 assessed: 04/07/24 Source: Developed by Drs. Leo Liu, Marilynn Reilly, Gerry Dos Santos and colleagues, with an educational skyla from [employer]. Review of Systems Const Denies headache(s) Eyes Denies loss of vision ENT Denies vertigo, Denies dizziness, Denies headache(s) and Denies sore throat Card Denies chest pain, Denies leg edema and Denies lightheadedness Resp Denies cough, Denies hemoptysis and Denies wheezing GI Denies abdominal pain, Denies melena, Denies constipation, Denies diarrhea and Denies vomiting Denies urinary frequency, Denies dysuria and Denies urinary urgency Musc Denies arthralgias, Denies joint swelling, Denies numbness and Denies tingling Neuro Denies Abnormal speech present, Denies behavioral changes, Denies vertigo, Denies dizziness, Denies headache(s), Denies loss of vision, Denies memory loss, Denies numbness and Denies tingling Psych Denies anxiety, Denies behavioral changes, Denies depression, Denies memory loss and Denies panic attacks Dre/Lymph Denies easy bleeding and Denies easy bruising Aller/Immun Denies wheezing Physical exam (Primary Care) Vital Signs: Last Vital Signs Pulse 78 08/26/24 08:39 BP 120/76 08/26/24 08:39 Pulse Ox 98 08/26/24 08:39 Oxygen Delivery Method Room Air 08/26/24 08:39 BMI result Body Mass Index 29.9 Tobacco/Smoking Status: Tobacco use Status Tobacco use date assessed 08/26/24 08/26/24 08:44 Patient Tobacco Use Status Former Tobacco user 08/26/24 08:44 Tobacco use type Cigarette 08/26/24 08:44 e-Cigarette/Vaping Use Never Used 08/26/24 08:44 Thrive Assessment: Date of Thrive Assessment Date Thrive assessed 04/07/24 08/26/24 08:44 Const General: healthy appearing, no acute distress, alert and awake Nutritional Appearance: well nourished Orientation/consciousness: oriented to person, oriented to place and oriented to time HENMT Ears: TM's normal bilaterally General nose exam: Normal nasal mucous membranes and turbinates present Eyes Conjunctivae: conjunctivae normal Sclerae: sclerae normal Pupils: Equal, round and reactive pupils present Neck Neck: Yes no lymphadenopathy and Yes no JVD Thyroid: Thyroid normal Carotids: no bruits Resp Effort & Inspection: normal respiratory effort and not tachypneic Auscultation: no crackles, no rales, no rhonchi and no wheezes Cardio Rate: regular rate Rhythm: regular rhythm Heart sounds: no murmurs and normal S1 and S2 GI Palpation (GI): Soft to palpation, nontender, no hepatomegaly and no splenomegaly Auscultation: normal bowel sounds Skin General skin exam: no rashes or lesions noted and dry skin Neuro General: oriented to person, oriented to place and oriented to time Cranial nerves: Yes Equal, round and reactive pupils present Speech: No Abnormal speech present Gait exam (Neuro): Normal gait present Motor exam (neuro): no tremor noted Extrem Right upper extremity: full ROM Left upper extremity: full ROM Right lower extremity: full ROM; no edema Left lower extremity: full ROM; no edema Psych Mental Status: mental status grossly normal Speech and movement: Normal speech and movement present Affect: normal affect Attitude: cooperative Thought process: Normal thought process present Coding Level of Care Code Est Pt Level 4 (19788) Diagnoses Pre-op evaluation Z01.818 Seizure disorder G40.909 LONNIE (obstructive sleep apnea) G47.33 Assessment & Plan Assessment & Plan (1) Pre-op evaluation: Code(s): Z01.818 - Encounter for other preprocedural examination Category: Medical Plan: Patient due for elective right total knee arthroplasty in October. Patient's most recent labs and EKG within normal range. Patient is concerned about pain medication postoperatively as she has had some adverse reactions in conjunction with her seizure medication. We did discuss perhaps trying tramadol as part of her pain management status post total knee arthroplasty. Patient is medically clear for elective total knee arthroplasty (2) Seizure disorder: Code(s): G40.909 - Epilepsy, unspecified, not intractable, without status epilepticus Category: Medical Plan: Her seizure disorder has been well controlled with her seizure medication. Has not had a seizure in several years. (3) LONNIE (obstructive sleep apnea): Code(s): G47.33 - Obstructive sleep apnea (adult) (pediatric) Category: Medical Plan: Continues to use CPAP machine on a nightly basis with good effect Orders: Orders Complete Blood Count no Diff 08/30/24 Z01.818 - Encounter for other preprocedural examination Basic Metabolic Panel 08/30/24 Z01.818 - Encounter for other preprocedural examination ECG 12 lead EKG 08/30/24 Z01.818 - Encounter for other preprocedural examination
[2024-08-26 08:39] VITALS: BP 120/76; PULSE 78; O2SAT 98; BMI 29.9
== END 2024-08-26 10:51 | disposition home or self-care (01) ==
PROVIDERS: PCP Physician Assistant; Visit Provider Physician Assistant
DX: Z01.818 Encounter for other preprocedural examination (principal); G40.909 Epilepsy, unspecified, not intractable, without status epilepticus; G47.33 Obstructive sleep apnea (adult) (pediatric)

== ENCOUNTER → 2024-08-26 08:31 | Outpatient (BNVA) | payer MEDICARE, SELFPAY | PROVIDERS: PCP Physician Assistant; Visit Provider Physician Assistant | DX: Z01.818 Encounter for other preprocedural examination (principal); G40.909 Epilepsy, unspecified, not intractable, without status epilepticus; G47.33 Obstructive sleep apnea (adult) (pediatric) | CPT/HCPCS: 99212 ==

== ENCOUNTER 2024-08-30 13:20 | Outpatient (REF) | payer MEDICARE, SELFPAY ==
--- NOTE | 2024-08-30 13:34 | ECG_ITS ---
Test Reason : PREOP Blood Pressure : / mmHG Vent. Rate : 075 BPM Atrial Rate : 075 BPM P-R Int : 134 ms QRS Dur : 078 ms QT Int : 398 ms P-R-T Axes : -27 012 013 degrees QTc Int : 444 ms Normal sinus rhythm Normal ECG No previous ECGs available Referred By: Rodrigo Kelly Electronically Signed By:SUNDAY ESTRADA
[2024-08-30 14:02] LABS: Hematocrit 38.3 % (37.0-47.0); Hemoglobin 12.4 g/dl (12.0-16.0); Mean Corpuscular HGB Conc 32.4 g/dl (31.0-35.0); Mean Corpuscular Hemoglobin 30.2 pg (27.0-33.0); Mean Corpuscular Volume 93.4 fL (80.0-98.0); Mean Platelet Volume 12.2 fL (9.4-12.3); Platelet Count 268 X10*3/uL (160-400); Red Cell Distribution Width 13.9 % (11.0-16.0); White Blood Count 7.4 X10*3/uL (4.8-10.8)
== END 2024-08-30 13:21 | disposition home or self-care (01) ==
LOC: HO.LAB 13:20
PROVIDERS: PCP Physician Assistant; Visit Provider Physician Assistant
DX: Z01.818 Encounter for other preprocedural examination (principal)
CPT/HCPCS: 36415; 85027; 93005

== ENCOUNTER → 2024-08-30 13:34 | Outpatient (BNV) | payer MEDICARE, SELFPAY | PROVIDERS: PCP Physician Assistant; Visit Provider Internal Medicine | DX: Z01.818 Encounter for other preprocedural examination (principal) | CPT/HCPCS: 93010 ==

== ENCOUNTER → 2024-09-06 08:39 | Outpatient (BNVA) | payer MEDICARE, SELFPAY | PROVIDERS: PCP Physician Assistant | DX: Z01.818 Encounter for other preprocedural examination (principal) ==

== ENCOUNTER 2024-09-27 15:53 | Outpatient (REF) | payer MEDICARE, SELFPAY ==
--- NOTE | ~2024-09-27 | XR_ITS ---
EXAMINATION: 3 views of the right knee. Single view of the left knee CLINICAL INFORMATION: Pain in the preop. COMPARISON: X-ray of the right knee May 2024. MRI of the right knee June 2024.. TECHNIQUE: 3 views of the right knee including AP upright Single AP upright view of the left knee. FINDINGS: Right knee: Postoperative changes with 2 screws extending into the proximal tibia anterior to posterior. There are prominent marginal osteophytes about all compartments most notable in the patellofemoral compartment. Findings indicative of tricompartmental moderate osteoarthritis. No effusion. Limited left knee: Small marginal osteophytes about the medial compartment without joint space narrowing indicative of mild arthrosis. Surrounding bone and soft tissues unremarkable. XR/XR knee RT 3V IMPRESSION: Right knee: Postoperative changes. Moderate osteoarthritis Limited left knee: Mild osteoarthritis. Electronically signed by: Js Rowe MD 10/02/2024 10:40 PM [facility]
== END 2024-09-27 15:54 | disposition home or self-care (01) ==
LOC: HO.HOSX 15:53
PROVIDERS: Visit Provider Physician Assistant
DX: M25.561 Pain in right knee (principal)
CPT/HCPCS: 73562

== ENCOUNTER 2024-09-28 11:19 | Outpatient (AMB) | payer MEDICARE, SELFPAY ==
--- NOTE | 2024-09-28 11:43 | A.OFFVIS_ITS ---
Vital Signs 09/28/24 11:47 Height 5 ft 5 in Weight 179 lb BMI 29.8 Intake Visit Reasons: Pre-Op: R TKA w/NE 10/06/24 Intake Note: Kirstin is a 69 year old female who presents today for a preoperative appointment for a RT TKA w/NE 10/06/24. Pain management agreement reviewed and signed. Allergies Gadolinium-Containing Contrast Medi Allergy (Severe, Verified 09/28/24 11:47) allergice ibuprofen [From Advil] Adverse Reaction (Intermediate, Verified 09/28/24 11:47) sensitivity adhesive tape Adverse Reaction (Unknown, Verified 09/28/24 11:47) Sensitivity codeine Adverse Reaction (Verified 09/28/24 11:47) Unknown Sulfa (Sulfonamide Antibiotics) Adverse Reaction (Verified 09/28/24 11:47) Unknown MRI dye Adverse Reaction (Uncoded 09/28/24 11:47) warmth HPI HPI Pre-Op: R TKA w/NE 10/06/24: Details: 69-year-old female who presents in the office today for her preoperative history and physical exam prior to a right total knee arthroplasty to be performed on 10/06/[address] Feng. The patient reports her pain is limiting her daily activities. He/She has tried and failed all conservative treatments. Therefore, she/he has elected to proceed with a right total knee arthroplasty. Patient has an allergy history, as follows: -Gadolinium-containing contrast medi -Ibuprofen (From Advil); Sensitivity. -Adhesive tape; Sensitivity. -Codeine; Unknown -Sulfa (sulfonamide antibiotics); Unknown -MRI dye; warmth Patient is currently taking, as follows: -Cholecalciferol 25 mcg PO daily. -Docusate sodium 100 mg PO daily. -Fluoxetine 60 mg PO daily. -Lacosamide 100 mg PO BID. Patient has a medical history, as follows: -Covid-19 virus infection on 07/20/2024. -Obstructive sleep apnea. -History of endometrial cancer. -Bilateral hand edema. -Major depressive disorder, recurrent episode, mild. -Borderline high cholesterol. -Seizure disorder. -Uterine cancer; 2007. -Back pain; right side. -GERD. -Microscopic hematuria. -Grand mal seizure. -Chronic headaches; since 1972 - stable. -Hemorrhoids. -Family history of sudden cardiac in daughter. Patient has a surgical history, as follows: -Hx of shoulder surgery; right. -Hx of hand surgery; right. -Hx of tonsillectomy and adenoidectomy -Hx of total abdominal hysterectomy -Hx of dilation and curettage x 6. -Hx of section x 2. -Hx of colonoscopy. -Hx of arthroscopy of right knee; tibial tubercal osteotomy. Patient has a social history, as follows:. -Smoking - Former cigarette user. [facility] Medical History (Updated 09/27/24 @ 11:51 by Gisel Lopez RN) Uterine cancer Arthritis Back pain GERD (gastroesophageal reflux disease) Sleep apnea Microscopic hematuria Hyperlipemia Refractive error Grand mal seizure Family history of sudden cardiac in daughter Chronic headaches Hemorrhoids Depression Osteoarthritis of knee Surgical History (Reviewed 09/28/24 @ 11:47 by Ingrid Burgess [facility]) Hx of shoulder surgery Hx of hand surgery History of tonsillectomy and adenoidectomy History of total abdominal hysterectomy H/O dilation and curettage H/O section H/O colonoscopy S/P arthroscopy of right knee Family History Father Glaucoma Maternal Aunt CAD (coronary artery disease) Paternal Grandmother CAD (coronary artery disease) Maternal Aunt Breast cancer Mother No problems noted. Maternal Grandmother Cancer of brain Social History Housing: House Are you a primary home health care physician to a significant other at home: No Do you presently have visiting nurse or other home services: No Alcohol intake: current Alcohol intake frequency: does not drink Alcohol type: wine Patient Tobacco Use Status: Former Tobacco user Tobacco use type: Cigarette e-Cigarette/Vaping Use: Never Used Second Hand Smoke Exposure: Yes service: No Current occupational status: retired Current occupational exposures/hazards: No Cognitive needs: No Hearing needs: No Vision needs: No Review of Systems Const All systems reviewed & are unremarkable except as noted in HPI and below Physical Exam Vital Signs: BMI result Body Mass Index 29.8 Const General: cooperative, healthy appearing, comfortable, no acute distress, well developed, alert and awake Orientation/consciousness: patient oriented x3 HEENT Head: Yes normal to inspection, Yes normocephalic and Yes atraumatic Eyes General: appearance normal, both eyes and all related structures Neck Neck: Yes normal visual inspection and Yes no lymphadenopathy Resp Effort & Inspection: normal respiratory effort and able to speak in complete sentences Cardio Rate: regular rate Peripheral pulses: Peripheral pulses 2+ throughout GI Inspection: Yes normal to inspection Palpation (GI): Soft to palpation Skin General skin exam: no rashes or lesions noted Neuro General: patient oriented x3 Extrem Other: Moderate right knee effusion 5-120 degrees of motion Medial and lateral joint line tenderness to palpation Psych Mental Status: mental status grossly normal Assessment & Plan Assessment & Plan (1) Localized osteoarthritis of right knee: Code(s): M17.11 - Unilateral primary osteoarthritis, right knee Category: Medical Plan Ms. Chávez is a 69-year-old female who presents in the office today for her preoperative history and physical exam prior to a right total knee arthroplasty to be performed on 10/06/[address] Feng. The patient reports her pain is limiting her daily activities. He/She has tried and failed all conservative treatments. Therefore, she/he has elected to proceed with a right total knee arthroplasty. Patient has an allergy history, as follows: -Gadolinium-containing contrast medi -Ibuprofen (From Advil); Sensitivity. -Adhesive tape; Sensitivity. -Codeine; Unknown -Sulfa (sulfonamide antibiotics); Unknown -MRI dye; warmth Patient is currently taking, as follows: -Cholecalciferol 25 mcg PO daily. -Docusate sodium 100 mg PO daily. -Fluoxetine 60 mg PO daily. -Lacosamide 100 mg PO BID. Patient has a medical history, as follows: -Covid-19 virus infection on 07/20/2024. -Obstructive sleep apnea. -History of endometrial cancer. -Bilateral hand edema. -Major depressive disorder, recurrent episode, mild. -Borderline high cholesterol. -Seizure disorder. -Uterine cancer; 2007. -Back pain; right side. -GERD. -Microscopic hematuria. -Grand mal seizure. -Chronic headaches; since 1972 - stable. -Hemorrhoids. -Family history of sudden cardiac in daughter. Patient has a surgical history, as follows: -Hx of shoulder surgery; right. -Hx of hand surgery; right. -Hx of tonsillectomy and adenoidectomy -Hx of total abdominal hysterectomy -Hx of dilation and curettage x 6. -Hx of section x 2. -Hx of colonoscopy. -Hx of arthroscopy of right knee; tibial tubercal osteotomy. Patient has a social history, as follows: -Smoking - Former cigarette user. I discussed with the patient not to take Celebrex post-op due to Sulfa allergy. The patient is sensitive to narcotics and is hesitant to take oxycodone. However, she is amenable to a trial on oxycodone while in the hospital. Depending on the drug tolerance, we will scale back on dosing or switch to a different medication if needed. Pain management agreement reviewed and signed. The patient would like to speak with an anesthesiologist prior to surgery. She would like to avoid spinal and/or nerve blocks. I discussed in detail the procedure and what to expect pre and post operatively. We discussed the risks, benefits and alternatives to the surgery and the rehabilitation course. The risks include infection, bleeding, nerve injury, ongoing pain, swelling, and stiffness, perioperative risk of injury to bones and soft tissues, and blood clots. I have answered all questions and with their understanding they have consented to move forward with a right total knee arthroplasty to be performed on 10/06/[address] Feng. Follow-up will be at the post operative appointment on 10/21/24, or sooner if needed. Cannot take Celebrex due to allergy. Orders: Orders XR knee LT 1V Today M25.569 - Pain in unspecified knee XR knee RT 3V Today M25.569 - Pain in unspecified knee Patient Instructions: Scribed by Najma Peña medical intern, for Ayse Olmos PA-C on 09/28/24 at 11:55 am EST. Coding Level of Care Code Global (02115) Diagnoses Localized osteoarthritis of right knee M17.11
[2024-09-28 11:47] VITALS: BMI 29.8
== END 2024-09-28 12:08 | disposition home or self-care (01) ==
PROVIDERS: PCP Physician Assistant; Visit Provider Physician Assistant
DX: M17.11 Unilateral primary osteoarthritis, right knee (principal)
CPT/HCPCS: 99024

== ENCOUNTER 2024-09-28 11:19 | Outpatient (REF) | payer MEDICARE, SELFPAY ==
--- NOTE | ~2024-09-28 | XR_ITS ---
EXAMINATION: 3 views of the right knee. Single view of the left knee CLINICAL INFORMATION: Pain in the preop. COMPARISON: X-ray of the right knee May 2024. MRI of the right knee June 2024.. TECHNIQUE: 3 views of the right knee including AP upright Single AP upright view of the left knee. FINDINGS: Right knee: Postoperative changes with 2 screws extending into the proximal tibia anterior to posterior. There are prominent marginal osteophytes about all compartments most notable in the patellofemoral compartment. Findings indicative of tricompartmental moderate osteoarthritis. No effusion. Limited left knee: Small marginal osteophytes about the medial compartment without joint space narrowing indicative of mild arthrosis. Surrounding bone and soft tissues unremarkable. XR/XR knee LT 1V IMPRESSION: Right knee: Postoperative changes. Moderate osteoarthritis Limited left knee: Mild osteoarthritis. Electronically signed by: Js Rowe MD 10/02/2024 10:40 PM [facility]
== END 2024-09-28 11:20 | disposition home or self-care (01) ==
LOC: HO.HOSX 11:19
PROVIDERS: PCP Physician Assistant; Visit Provider Physician Assistant
DX: M25.562 Pain in left knee (principal)
CPT/HCPCS: 73560; 99212

== ENCOUNTER 2024-10-06 09:42 | Day surgery (SDC) | payer MEDICARE, SELFPAY ==
[2024-09-27 12:02] VITALS: BP 151/83; PULSE 73; RESP 16; O2SAT 98; BMI 30.1
[2024-09-27 14:01] LABS: MRSA Nasal PCR NEGATIVE (Negative); SA Nasal PCR NEGATIVE (Negative)
--- NOTE | 2024-10-05 09:17 | P.CONAN_ITS ---
Documented by User: Naomie Dueñas NP 10/05/24 09:20 HPI - Anesthesia Eval Consult details Narrative: 69yo F for Right Knee Replacement Total Anesthesia unavailable for PAT on 09/27/24. Pt with concerns re: spinal anesthesia and nerve block Medically optimized per PCP PMFSH Active Problems Active Problems: All Active Problems Pre-op evaluation (Acute) COVID-19 virus infection (Acute) Localized osteoarthritis of right knee (Acute) Instability of right knee joint (Acute) Right knee injury (Acute) Osteoarthritis of hands, bilateral (Acute) LONNIE (obstructive sleep apnea) (Acute) Bilateral hand swelling (Acute) History of endometrial cancer (Acute) MDD (major depressive disorder), recurrent episode, mild (Acute) Borderline high cholesterol (Acute) Screening for diabetes mellitus (DM) (Acute) Seizure disorder (Acute) Past Medical History Medical History Uterine cancer Arthritis Back pain GERD (gastroesophageal reflux disease) Sleep apnea Microscopic hematuria Hyperlipemia Refractive error Grand mal seizure Family history of sudden cardiac in daughter Chronic headaches Hemorrhoids Depression Osteoarthritis of knee Family History Family History Father Glaucoma Maternal Aunt CAD (coronary artery disease) Paternal Grandmother CAD (coronary artery disease) Maternal Aunt Breast cancer Mother No problems noted. Maternal Grandmother Cancer of brain Surgical History Surgical History Hx of shoulder surgery Hx of hand surgery History of tonsillectomy and adenoidectomy History of total abdominal hysterectomy H/O dilation and curettage H/O section H/O colonoscopy S/P arthroscopy of right knee Social History Social History Housing: House Are you a primary palliative care coordinator to a significant other at home: No Do you presently have visiting nurse or other home services: No Alcohol intake: current Alcohol intake frequency: does not drink Alcohol type: wine Patient Tobacco Use Status: Former Tobacco user Tobacco use type: Cigarette e-Cigarette/Vaping Use: Never Used Second Hand Smoke Exposure: Yes Use of substances other than those prescribed or required for medical reasons: No Have you been hit, kicked, punched, or otherwise hurt by someone within the past year? If so, by whom?: No Are you DNR?: No Advance Directives: No Advance Directives Information Provided: Yes Advance Directives on File: No Recently lost weight without trying: No Eating poorly because of decreased appetite: No Nutrition Risks: No Nutritional Risk Patient : No : No Poor oral hygiene: Yes (crowns upper and lower) service: No Current occupational status: retired Current occupational exposures/hazards: No Cognitive needs: No Hearing needs: No Vision needs: No Meds Allergies Allergy/AdvReac Type Severity Reaction Status Date / Time Gadolinium-Containing Allergy Severe allergice Verified 10/06/24 09:51 Contrast Medi ibuprofen [From Advil] AdvReac Intermediate sensitivity Verified 10/06/24 09:51 adhesive tape AdvReac Unknown Sensitivity Verified 10/06/24 09:51 codeine AdvReac Unknown Verified 10/06/24 09:51 Sulfa (Sulfonamide AdvReac Unknown Verified 10/06/24 09:51 Antibiotics) MRI dye AdvReac warmth Uncoded 10/06/24 09:51 Home Medications ?Medication ?Instructions ?Recorded ?Confirmed ?Last Taken ?Type calcium carbonate 500 2 tab PO NEEDED PRN Acid Reflux 09/27/24 10/06/24 09/26/24 History mg-simethicone 20 mg chewable tablet docusate sodium 100 mg capsule 100 mg PO DAILY 09/27/24 10/06/24 10/05/24 His tory (Colace) Exam Height,Weight and Vital Signs: Height 5 ft 5 in Weight 82.1 kg Last Vital Signs Pulse 73 09/27/24 12:02 Resp 16 09/27/24 12:02 BP 151/83 H 09/27/24 12:02 Pulse Ox 98 09/27/24 12:02 O2 Del Method Room Air 09/27/24 12:02 Pertinent Lab Results Pertinent Lab Results: Laboratory Tests 09/27/24 12:15 Nasal Screen MRSA (PCR) NEGATIVE Nasal S. aureus Screen NEGATIVE Nasal MRSA/S.aureus Interp SEE NOTE Laboratory Tests 04/15/24 08/30/24 09:12 13:32 WBC 7.4 Hgb 12.4 Hct 38.3 Plt Count 268 Sodium 138 Potassium 4.3 Chloride 104 Carbon Dioxide 25 BUN 11 Creatinine 0.65 Narrative Narrative: EKG 08/2024 Vent. Rate : 075 BPM Atrial Rate : 075 BPM P-R Int : 134 ms QRS Dur : 078 ms QT Int : 398 ms P-R-T Axes : -27 012 013 degrees QTc Int : 444 ms Normal sinus rhythm Normal ECG No previous ECGs available Assessment and Plan Assessment Anesthesia Assessment: Chart Reviewed Documented by User: Ilda Echeverria MD 10/06/24 11:12 [facility] Past Medical History Medical History Uterine cancer Arthritis Back pain GERD (gastroesophageal reflux disease) Sleep apnea Microscopic hematuria Hyperlipemia Refractive error Grand mal seizure Family history of sudden cardiac in daughter Chronic headaches Hemorrhoids Depression Osteoarthritis of knee Family History Family History Father Glaucoma Maternal Aunt CAD (coronary artery disease) Paternal Grandmother CAD (coronary artery disease) Maternal Aunt Breast cancer Mother No problems noted. Maternal Grandmother Cancer of brain Family history of problems with anesthesia: No Surgical History Surgical History Hx of shoulder surgery Hx of hand surgery History of tonsillectomy and adenoidectomy History of total abdominal hysterectomy H/O dilation and curettage H/O section H/O colonoscopy S/P arthroscopy of right knee History of Problems with Anesthesia: No Social History Social History Housing: House Are you a primary palliative care coordinator to a significant other at home: No Do you presently have visiting nurse or other home services: No Alcohol intake: current Alcohol intake frequency: does not drink Alcohol type: wine Patient Tobacco Use Status: Former Tobacco user Tobacco use type: Cigarette e-Cigarette/Vaping Use: Never Used Second Hand Smoke Exposure: Yes Use of substances other than those prescribed or required for medical reasons: No Have you been hit, kicked, punched, or otherwise hurt by someone within the past year? If so, by whom?: No Are you DNR?: No Advance Directives: No Advance Directives Information Provided: Yes Advance Directives on File: No Recently lost weight without trying: No Eating poorly because of decreased appetite: No Nutrition Risks: No Nutritional Risk Patient : No : No Poor oral hygiene: Yes (crowns upper and lower) service: No Current occupational status: retired Current occupational exposures/hazards: No Cognitive needs: No Hearing needs: No Vision needs: No Meds Allergies Allergy/AdvReac Type Severity Reaction Status Date / Time Gadolinium-Containing Allergy Severe allergice Verified 10/06/24 09:51 Contrast Medi ibuprofen [From Advil] AdvReac Intermediate sensitivity Verified 10/06/24 09:51 adhesive tape AdvReac Unknown Sensitivity Verified 10/06/24 09:51 codeine AdvReac Unknown Verified 10/06/24 09:51 Sulfa (Sulfonamide AdvReac Unknown Verified 10/06/24 09:51 Antibiotics) MRI dye AdvReac warmth Uncoded 10/06/24 09:51 Home Medications ?Medication ?Instructions ?Recorded ?Confirmed ?Last Taken ?Type calcium carbonate 500 2 tab PO NEEDED PRN Acid Reflux 09/27/24 10/06/24 History mg-simethicone 20 mg chewable tablet docusate sodium 100 mg capsule 100 mg PO DAILY 09/27/24 10/06/24 10/05/24 History (Colace) Exam Airway Mallampati Class: II TM Dist: >3cm Neck ROM: Full Heart: rrr Lungs: cta Assessment and Plan Final Anesthetic Review Family History of Problems with Anesthesia: No History of Problems with Anesthesia: No NPO: Yes ASA Class: III Final Preanesthetic Review: No Changes in Pt Med Stat, Meds/Allgs Chart Reviewed, Consent Obtained/Reviewed and Anes Risks/Benef Reviewed Patient Risk: Intermediate Procedure Risk: Intermediate Anesthetic Plan Anesthetic Plan: MAC:, Spinal and Regional Block Disposition: Standard PACU
[2024-10-06] VITALS (9 sets, daily range): BP systolic 115–157; BP diastolic 61–77; PULSE 70–90; RESP 15–21; TEMP 36.1–36.9; O2SAT 91–141; BMI 29.6; BMI 33.3
[2024-10-06] MEDS: Lactated Ringers 1,000 ML 100 ML IVCONT ×2 (10:32→15:22)
--- NOTE | 2024-10-06 12:02 | MHC.SHP ---
Pre-Procedural Eval Section A - 24 Hr Update-Section A only Date of Service: 10/06/24 The patient is an INPATIENT: No Changes since office visit: No Cold of Flu in the past 2 weeks, No New Medical Problems, No Changes in Medication and No Patient answered all questions The patient has been examined within 24 hours of the surgical procedure. The History & Physical has been completed within 30 days and I have reviewed it.: Yes Section B - Complete if H&P > 30 days Chief Complaint: RTKA Allergies: Allergies Allergy/AdvReac Type Severity Reaction Status Date / Time Gadolinium-Containing Allergy Severe allergice Verified 10/06/24 09:51 Contrast Medi ibuprofen [From Advil] AdvReac Intermediate sensitivity Verified 10/06/24 09:51 adhesive tape AdvReac Unknown Sensitivity Verified 10/06/24 09:51 codeine AdvReac Unknown Verified 10/06/24 09:51 Sulfa (Sulfonamide AdvReac Unknown Verified 10/06/24 09:51 Antibiotics) MRI dye AdvReac warmth Uncoded 10/06/24 09:51 Plan I have reviewed the history and physical and performed a pertinent physical examination on my patient. No changes have occurred unless specified. Time Spent With Patient Time: Total time managing care of this patient today ____ minutes.
--- NOTE | 2024-10-06 13:50 | W.PM.OPN ---
Operative Note Operative Note Date of Service: 10/06/24 Narrative: Date of Service: 10/06/24 Pre-op diagnosis: Right Knee OA Post-op diagnosis: same Procedure: Right TKA Implants: [place] [employer] posterior stabilized cemented 03/06/11/29a Surgeon: Tristan Feng MD Anesthesia: GLMA and regional Was an Director Of Child Welfare Services used for this Procedure?: Yes Director Of Child Welfare Services: Ayse Olmos Estimated blood loss (mL): 25 Tourniquet time (min): 69 IV fluids (mL): 1,000 Pathology: other Condition: stable Disposition: PAC Procedure in detail: The patient was brought to the operating room and prepped and draped in standard sterile fashion. A time-out was called to identify proper site proper procedure proper surgeon and IV antibiotics were administered. 1 g of IV tranexamic acid was administered. I began by making a midline incision to the retinaculum and performed a medial parapatellar arthrotomy. The patella was translated laterally and the knee was flexed up. There was tricompartmental severe desease affecting the PF and medial compartments most significantly. I performed a small medial peel and resected the infrapatellar fat pad. [place]'s line was then used to drill my intramedullary femoral guide and my distal femur cut of 12 mm (10 deg flexion contracture) was made in 5 degrees of valgus while protecting the soft tissues. I then measured a # 5 femur and placed my cutting guide in 3 deg ER and made my anterior posterior and chamfer cuts protecting the soft tissues at all times. I then made my box but removing the PCL. Once I was satisfied with my cuts I turned my attention to the tibia. I removed the meniscus medially and laterally and , using an external cutting guide, in line with the tibial crest and the third ray, I made my distal tibial cut in 0 deg slope of while protecting the posterior soft tissues at all times. An extension block was used to confirm appropriate amount of bony resection. I then sized a #4 tibia and once I was satisfied that there was complete tibial coverage I placed my trial and with the trial femur in place took the knee through range of motion. I was satisfied with the extension and flexion as well as the balance at 0, 30 and 90 degrees. I then turned my attention to the patella where I removed 1 cm from the undersurface of the patella and then trialed a 29a patellar button. Again the knee was taken through range of motion I was satisfied with the tracking. I then prepared the tibia with a drill and punch. The tibial tubercle screws from prior surgery were not in the field. A femoral bone plug was placed and the knee was irrigated copiously. I then cemented the patella, tibia and femur in standard fashion. Axial compression and a clamp were used while the cement dried. Once the cement was hard on the back table all excess cement was removed and I trialed different inserts until I selected a #11insert. The final insert was placed and local TXA was administered. The knee was then closed with a running Quill suture, a 3 0 Vicryl and danyelle on the skin. Patient was then placed in sterile dressing and brought to recovery room in stable condition there were no known complications.
--- NOTE | 2024-10-06 15:26 | PHA.MEDREC ---
Addendum entered by John Atkinson RPh 10/06/24 15:50: Med rec reviewed Original Note: Pharmacy Consult ? Medication Reconciliation Pharmacy reviewed med rec done by nursing. Patient confirmed medications on med list.
--- NOTE | 2024-10-06 15:36 | PM.IMCN ---
History of Present Illness Data of Consult Service Date: 10/06/24 Primary Care Provider: Rodrigo Kelly PA-C HPI Reason for consult: Seizure disorder 69F PMH osteoarthritis, mood disorder, seizure disorder admitted for elective right knee replacement for osteoarthritis. Medical consult for comanagement of chronic medical conditions. Review of Systems Review of Systems: Yes all other systems are reviewed and are negative PMFSH Medical History Uterine cancer Arthritis Back pain GERD (gastroesophageal reflux disease) Sleep apnea Microscopic hematuria Hyperlipemia Refractive error Grand mal seizure Family history of sudden cardiac in daughter Chronic headaches Hemorrhoids Depression Osteoarthritis of knee Family History Father Glaucoma Maternal Aunt CAD (coronary artery disease) Paternal Grandmother CAD (coronary artery disease) Maternal Aunt Breast cancer Mother No problems noted. Maternal Grandmother Cancer of brain Surgical History Hx of shoulder surgery Hx of hand surgery History of tonsillectomy and adenoidectomy History of total abdominal hysterectomy H/O dilation and curettage H/O section H/O colonoscopy S/P arthroscopy of right knee Social History Housing: House Are you a primary director of medicare to a significant other at home: No Do you presently have visiting nurse or other home services: No Alcohol intake: current Alcohol intake frequency: does not drink Alcohol type: wine Patient Tobacco Use Status: Former Tobacco user Tobacco use type: Cigarette e-Cigarette/Vaping Use: Never Used Second Hand Smoke Exposure: Yes Use of substances other than those prescribed or required for medical reasons: No Have you been hit, kicked, punched, or otherwise hurt by someone within the past year? If so, by whom?: No Are you DNR?: No Advance Directives: No Advance Directives Information Provided: Yes Advance Directives on File: No Recently lost weight without trying: No Eating poorly because of decreased appetite: No Nutrition Risks: No Nutritional Risk Patient : No : No Poor oral hygiene: Yes (crowns upper and lower) service: No Current occupational status: retired Current occupational exposures/hazards: No Cognitive needs: No Hearing needs: No Vision needs: No Meds Allergies Allergy/AdvReac Type Severity Reaction Status Date / Time Gadolinium-Containing Allergy Severe allergice Verified 10/06/24 09:51 Contrast Medi ibuprofen [From Advil] AdvReac Intermediate sensitivity Verified 10/06/24 09:51 adhesive tape AdvReac Unknown Sensitivity Verified 10/06/24 09:51 codeine AdvReac Unknown Verified 10/06/24 09:51 Sulfa (Sulfonamide AdvReac Unknown Verified 10/06/24 09:51 Antibiotics) MRI dye AdvReac warmth Uncoded 10/06/24 09:51 Active Medications: Current Medications Acetaminophen (Acetaminophen 325 Mg Tablet) 650 mg PO Q6H PRN PRN Reason: Pain, Mild (Pain Scale 1-3), fever or headache Aspirin (Aspirin 325 Mg Tablet) 325 mg PO BID [facility] Docusate Sodium (Docusate Sodium 100 Mg Capsule) 100 mg PO DAILY [facility] Fluoxetine HCl (Fluoxetine Hcl 20 Mg Capsule) 60 mg PO DAILY [facility] Hydromorphone HCl (Hydromorphone Hcl 0.5 Mg/0.5 Ml Syringe) 0.25 mg IVPUSH Q5M PRN PRN Reason: Pain, Moderate to Severe (Pain Scale 4-10) Stop: 10/06/24 17:12 Hydromorphone HCl (Hydromorphone Hcl 0.5 Mg/0.5 Ml Syringe) 0.25 mg IVPUSH Q4H PRN; Protocol PRN Reason: Pain, Severe (Pain Scale 7-10) Lactated Ringer's (Lr) 1,000 mls @ 100 mls/hr IVCONT .Q10H [facility] Last Admin: 10/06/24 15:22 Dose: 100 mls/hr Cefazolin Sodium/Dextrose (Ancef) 2 gm in 50 mls @ 100 mls/hr IV POSTOP@1800 ONE Stop: 10/06/24 18:29 Lacosamide (Lacosamide 100 Mg Tablet) 100 mg PO BID [facility] Magnesium Hydroxide (Milk Of Magnesia 30 Ml Oral.Susp) 30 ml PO DAILY PRN PRN Reason: Constipation Melatonin (Melatonin 3 Mg Tablet) 6 mg PO BEDTIME PRN PRN Reason: Insomnia Naloxone HCl (Naloxone Hcl 0.4 Mg/Ml Vial) 0.04 mg IVPUSH Q5M PRN PRN Reason: Excessive sedation or RR < 8 Non-Formulary Medication (Calcium Carbonate-Simethicone) 2 tab PO NEEDED PRN PRN Reason: Acid Reflux Ondansetron HCl (Ondansetron Hcl 4 Mg/2 Ml Vial) 4 mg IVPUSH ONCE PRN PRN Reason: Nausea and Vomiting Stop: 10/06/24 17:13 Oxycodone HCl (Oxycodone Hcl Immed Release 5 Mg Tablet) 5 mg PO Q4H PRN PRN Reason: Pain, Moderate(Pain Scale 4-6) Oxycodone HCl (Oxycodone Hcl Er 10 Mg Tab.Er.12h) 10 mg PO BID [facility] Sodium Chloride (0.9 % Sodium Chloride Flush 3 Ml Syringe) 3 ml IVFLUSH QSHIFT [facility] Last Admin: 10/06/24 15:23 Dose: Not Given Vitamin D (Cholecalciferol (Vitamin D3) 25 Mcg Tablet) 25 mcg PO DAILY [facility] Home Medications ?Medication ?Instructions ?Recorded ?Confirmed ?Last Taken ?Type calcium carbonate 500 2 tab PO NEEDED PRN Acid Reflux 09/27/24 10/06/24 09/26/24 History mg-simethicone 20 mg chewable tablet docusate sodium 100 mg capsule 100 mg PO BEDTIME 09/27/24 10/06/24 10/05/24 History (Colace) Physical Exam Vital Signs and Narrative: Vital Signs: Last Vital Signs Temp 97.1 F 10/06/24 15:14 Pulse 77 10/06/24 15:14 Resp 18 10/06/24 15:14 BP 157/74 H 10/06/24 15:14 Pulse Ox 97 10/06/24 15:14 O2 Del Method Room Air 10/06/24 15:14 O2 Flow Rate 2 10/06/24 14:35 BMI result Body Mass Index 33.3 General: AO X 3, no acute distress Resp: CTA bilateral, no accessory muscles used CVS: S1,S2,RRR GI: soft, non tender, non distended Neuro: motor grossly intact, alert Psych: appropriate affect, appropriate insight Results Labs Labs: Laboratory Results - last 24 hr 10/06/24 10:18 Blood Type O Positive Antibody Screen NEGATIVE Assessment and Plan (1) MDD (major depressive disorder), recurrent episode, mild: Status: Acute Plan 69F PMH osteoarthritis, mood disorder, seizure disorder admitted for elective right knee replacement for osteoarthritis Mood disorder Continue fluoxetine Seizure disorder Continue lacosamide Patient appears medically stable will sign off for now please recall if needed
[2024-10-06] MEDS: ceFAZolin Sodium/Dextrose,Iso 2 GM/50 ML PIGGYBACK IV (17:28)
[2024-10-06] MEDS: oxyCODONE HCl ER 10 MG TAB.ER.12H PO (20:24)
[2024-10-06] MEDS: Lacosamide 100 MG TABLET PO (20:24)
[2024-10-06] MEDS: Acetaminophen 325 MG TABLET 650 MG PO (21:40)
[2024-10-07] MEDS: Lactated Ringers 1,000 ML 100 ML IVCONT (03:22)
[2024-10-07 04:00] VITALS: BP 125/60; PULSE 80; RESP 18; TEMP 37.2; O2SAT 96
[2024-10-07] MEDS: oxyCODONE HCl Immed Release 5 MG TABLET PO ×2 (07:34→15:29)
[2024-10-07 07:57] VITALS: BP 132/68; PULSE 84; RESP 18; TEMP 37; O2SAT 94
[2024-10-07 08:13] LABS: Anion Gap 13 (12-20); Blood Urea Nitrogen 10 mg/dL (9-16); Calcium 8.8 mg/dL (8.4-10.2); Carbon Dioxide 27 mmol/L (22-29); Chloride 98 mmol/L (96-108); Creatinine Clr Calc Pharmacy 86.9; Estimated Glomerular Filt Rate > 60; Glucose Fasting 108 mg/dL (60-99); Potassium 4.4 mmol/L (3.3-5.1); Sodium 134 mmol/L (135-145)
[2024-10-07 08:26] LABS: Basophils Percent Auto 0.3 % (0-2); Hematocrit 32.7 % (37.0-47.0); Hemoglobin 10.7 g/dl (12.0-16.0); Imm Gran Abs Auto 0.09 X10*3/uL (0.00-0.03); Imm Gran Pct Auto 0.6 % (0.0-0.4); Lymphocytes Absolute Auto 0.9 X10*3/uL (1.2-4.9); Lymphocytes Percent Auto 5.7 % (20-40); MANUAL DIFF FLAG SCAN; Mean Corpuscular HGB Conc 32.7 g/dl (31.0-35.0); Mean Corpuscular Hemoglobin 30.1 pg (27.0-33.0); Mean Corpuscular Volume 91.9 fL (80.0-98.0); Monocytes Absolute Auto 2.1 X10*3/uL (0.1-1.2); Monocytes Percent Auto 13.9 % (2-11); Neutrophils Absolute Auto 11.8 x10*3/uL (2.0-8.3); Neutrophils Percent Auto 79.5 % (45-73); Red Blood Count 3.56 X10*6/uL (4.20-5.50); Red Cell Distribution Width 14.2 % (11.0-16.0); SCAN SMEAR FLAG 1; White Blood Count 14.9 X10*3/uL (4.8-10.8)
[2024-10-07] MEDS: Lacosamide 100 MG TABLET PO ×2 (08:36→21:13)
[2024-10-07] MEDS: oxyCODONE HCl ER 10 MG TAB.ER.12H PO ×2 (08:36→21:13)
[2024-10-07] MEDS: FLUoxetine HCl 20 MG CAPSULE 60 MG PO (08:36)
[2024-10-07] MEDS: Cholecalciferol (Vitamin D3) 25 MCG TABLET PO (08:36)
[2024-10-07] MEDS: ondansetron HCL 4 MG/2 ML VIAL IVPUSH (08:37)
[2024-10-07] MEDS: Docusate Sodium 100 MG CAPSULE PO (08:38)
--- NOTE | 2024-10-07 08:55 | HO.POSTANES ---
Post Anesthesia Evaluation Post Anesthesia Evaluation Date of Service: 10/07/24 Vital Signs: Vital Signs Temp Pulse Resp BP Pulse Ox O2 Del Method 10/07/24 07:57 98.6 F 84 18 132/68 94 Room Air 10/07/24 04:00 98.9 F 80 18 125/60 96 Room Air 10/06/24 23:49 97.7 F 83 18 115/61 96 Room Air Anesthesia: General Mental Status: Awake Pain Control: Satisfactory Nausea/Vomiting: None Hydration: Adequate Anesthesia-Related Issues: No Anes. Related Issues
[2024-10-07 09:18] LABS: SLIDE REVIEW VERIFIED
--- NOTE | 2024-10-07 09:34 | P.PNOP_ITS ---
Subjective Subjective Date of Service: 10/07/24 Interval history: POD 1 s/p RT TKA no overnight events has some nausea denies sob, cp, palpitations Physical Exam Vital Signs: Vital Signs: Last Vital Signs Temp 98.6 F 10/07/24 07:57 Pulse 84 10/07/24 07:57 Resp 18 10/07/24 07:57 BP 132/68 10/07/24 07:57 Pulse Ox 94 10/07/24 07:57 O2 Del Method Room Air 10/07/24 07:57 O2 Flow Rate 2 10/06/24 14:35 BMI result Body Mass Index 33.3 Const: General: cooperative, healthy appearing and no acute distress Resp: Effort & Inspection: normal respiratory effort and able to speak in complete sentences Cardio: Rate: regular rate Peripheral pulses: Peripheral pulses 2+ throughout GI: Palpation (GI): Soft to palpation Skin: General skin exam: no rashes or lesions noted Extrem: Other: bandage clean dry and intact. [place] intact. No erythema or joint effusion. Calf supple nontender. Neurovascularly intact. Procedures Date of Service Date of Service: 10/07/24 Progress Note: A&P Assessment and plan (1) Status post total right knee replacement: Status: Acute Assessment and Plan: * Continue pain mgmnt * Begin Aspirin for dvt ppx * begin PT for RT TKA * Dispo planning-Pending PT eval, pain mgmnt Need for continued inpatient stay: PT, nauseau, pain mgmnt Time Spent With Patient Time: Total time managing care of this patient today ____ minutes. Quality Stroke Does the patient have a stroke diagnosis?: No VTE Prior VTE?: No VTE Risk Level:: Surgical - very high VTE Device Contraindication: N/A - Device Ordered VTE Drug Contraindication: N/A - Med Ordered
[2024-10-07] MEDS: Aspirin 325 MG TABLET PO ×2 (11:40→21:13)
[2024-10-07] MEDS: Calcium Carbonate 750 MG TAB.CHEW PO (11:41)
--- NOTE | 2024-10-07 13:41 | MHC.CM.PN ---
PATIENT LIVES IN A HOME W/ . FUNCTIONALLY INDEPENDENT. BATHROOM EQUIPPED W/ GRAB BARS IN SHOWER AND TOILET RISER. 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 PCP SUBHA JOVEL NO HCP. CM PROVIDED EDUCATION AND OFFERED ASSISTANCE. PATIENT DECLINED. DP: PT REC HOME W/ SERVICES. [facility] HAS ACCEPTED. TO TRANSPORT. CM WILL CONTINUE TO FOLLOW.
[2024-10-07 15:21] VITALS: BP 180/80; PULSE 83; RESP 16; TEMP 36.9; O2SAT 95
[2024-10-07] MEDS: 0.9 % Sodium Chloride Flush 3 ML SYRINGE IVFLUSH ×2 (15:33→21:14)
[2024-10-07 16:15] VITALS: BP 175/82
--- NOTE | 2024-10-07 17:08 | PC.NURSE ---
pt tolerating po well, no c/o n/v, ambulating to bathroom with walker and standby, voiding well.
[2024-10-07 20:00] VITALS: BP 160/80; PULSE 87; RESP 16; TEMP 37.5; O2SAT 92
[2024-10-08] VITALS (7 sets, daily range): BP systolic 137–170; BP diastolic 65–82; PULSE 81–86; RESP 16–17; TEMP 36.1–36.6; O2SAT 94–97
[2024-10-08 06:33] LABS: Anion Gap 12 (12-20); Blood Urea Nitrogen 5 mg/dL (9-16); Calcium 8.6 mg/dL (8.4-10.2); Carbon Dioxide 23 mmol/L (22-29); Chloride 91 mmol/L (96-108); Creatinine Clr Calc Pharmacy 103.3; Estimated Glomerular Filt Rate > 60; Glucose Fasting 125 mg/dL (60-99); Potassium 3.4 mmol/L (3.3-5.1); Sodium 123 mmol/L (135-145)
[2024-10-08 07:15] LABS: Basophils Percent Auto 0.2 % (0-2); Hematocrit 29.9 % (37.0-47.0); Hemoglobin 10.3 g/dl (12.0-16.0); Imm Gran Abs Auto 0.08 X10*3/uL (0.00-0.03); Imm Gran Pct Auto 0.6 % (0.0-0.4); Lymphocytes Absolute Auto 0.7 X10*3/uL (1.2-4.9); Lymphocytes Percent Auto 5.8 % (20-40); Mean Corpuscular HGB Conc 34.4 g/dl (31.0-35.0); Mean Corpuscular Hemoglobin 30.4 pg (27.0-33.0); Mean Corpuscular Volume 88.2 fL (80.0-98.0); Mean Platelet Volume 12.9 fL (9.4-12.3); Monocytes Percent Auto 15.3 % (2-11); Neutrophils Percent Auto 78.1 % (45-73); Platelet Count 152 X10*3/uL (160-400); Red Blood Count 3.39 X10*6/uL (4.20-5.50); Red Cell Distribution Width 13.9 % (11.0-16.0); SCAN SMEAR FLAG 1; White Blood Count 12.8 X10*3/uL (4.8-10.8)
[2024-10-08 07:20] LABS: MANUAL DIFF FLAG NO
--- NOTE | 2024-10-08 07:48 | PM.DS ---
DS: Providers Provider Date of Service: 10/08/24 Primary care physician: Rodrigo Klely PA-C Consults: 10/06/24 14:50 Consult to Hospitalist Routine Comment: Consulting Provider: [facility] Hospitalists Reason For Exam: Routine medical management DS: Diagnosis Discharge Diagnosis (1) Status post total right knee replacement: Status: Acute DS: Summary Hospital Course Hospital Course: The patient underwent a successful right total knee arthroplasty on 10/06/[address] Feng, was transferred to PACU and then to the floor to recover. During their stay, their vitals were stable, afebrile at 97.8. Labs were unremarkable, H/H 10.3/29.9. POD 1 he was started on ASA 325mg tabs po bid for DVT ppx, they also received Physical Therapy services twice a day. Physical therapy should include gait training, ROM to tolerance and quad strength. He is WBAT. Prior to discharge, his dressing was changed, incision clean dry and intact, new Aquacel dressing applied. The Aquacel dressing should remain intact and dry at all times. Any concerns with the dressing, please contact orthopedic office. No showering. The plan is to be discharged home with [facility] Time Attestation Discharge Coordination Time (in mins): 30 Quality: Safe Use of Opioids Does Pt have an Active Cancer Diagnosis on the Problem List?: No Quality: Stroke Does the patient have a stroke diagnosis?: No Physical Exam Vital Signs: Vital Signs: Last Vital Signs Temp 97.8 F 10/08/24 03:40 Pulse 81 10/08/24 03:40 Resp 17 10/08/24 03:40 BP 156/82 H 10/08/24 03:45 Pulse Ox 97 10/08/24 03:40 O2 Del Method CPAP 10/08/24 03:40 O2 Flow Rate 2 10/06/24 14:35 BMI result Body Mass Index 33.3 DS: Data Data Completed and Pending Pending studies at discharge: Pending at discharge 10/06/24 13:25 Surgical [PTH] Routine Labs on day of discharge: Laboratory Results - last 24 hr 10/07/24 10/08/24 05:48 05:46 WBC 14.9 H 12.8 H RBC 3.56 L 3.39 L Hgb 10.7 L 10.3 L Hct 32.7 L 29.9 L MCV 91.9 88.2 MCH 30.1 30.4 MCHC 32.7 34.4 RDW 14.2 13.9 Plt Count TNP 152 L D MPV TNP 12.9 H Immature Gran % (Auto) 0.6 H 0.6 H Neut % (Auto) 79.5 H 78.1 H Lymph % (Auto) 5.7 L 5.8 L [place] % (Auto) 13.9 H 15.3 H Eos % (Auto) 0.0 0.0 Baso % (Auto) 0.3 0.2 Lymph # (Auto) 0.9 L 0.7 L [place] # (Auto) 2.1 H 2.0 H Eos # (Auto) 0.0 0.0 Baso # (Auto) 0.0 0.0 Abs Immat Gran (auto) 0.09 H 0.08 H Absolute Neuts (auto) 11.8 H 10.0 H Absolute Nucleated RBC 0.000 0.000 Nucleated RBC % (auto) 0.0 0.0 Smear Tech's Comments VERIFIED Sodium 134 L 123 L Potassium 4.4 3.4 D Chloride 98 91 L Carbon Dioxide 27 23 Anion Gap 13 12 BUN 10 5 L Creatinine 0.69 0.58 Estim Creat Clear Calc 86.9 103.3 Estimated GFR > 60 > 60 Fasting Glucose 108 H 125 H Calcium 8.8 8.6 Discharge Plan Discharge Patient Disposition: Home Health Service Referrals: [facility] [Outside] - 3-5 Days Ayse Olmos PA-C [Physician Payroll Benefits Administrator] - 2 Weeks (10/21/24 13:15 [facility] Orthopedic Surgeons Ayse Olmos PA-C) Discharge Medications: New aspirin 325 mg Tablet 325 mg PO BID 42 Days Qty: 84 0RF oxycodone 5 mg Tablet 5 mg PO Q4H PRN (Reason: Pain, Moderate(Pain Scale 4-6)) 7 Days Qty: 42 0RF Rx Instructions: Partial Fill upon patient request. acetaminophen 325 mg Tablet 650 mg PO Q6H PRN (Reason: Pain, Mild (Pain Scale 1-3), fever or headache) 30 Days Qty: 240 0RF Continued cholecalciferol (vitamin D3) 25 mcg (1,000 unit) tablet 25 mcg PO DAILY Qty: 30 0RF (NEENA) gricelda Misc See Rx Instructions .ROUTE .MEDSUPPLY Qty: 1 0RF Rx Instructions: Folding front wheeled walker fluoxetine 20 mg tablet 60 mg PO DAILY 90 Days Qty: 270 1RF Rx Instructions: administer in the morning and at noon/midday docusate sodium [Colace] 100 mg Capsule 100 mg PO BEDTIME calcium carbonate-simethicone 500-20 mg Tablet,Chewable 2 tab PO NEEDED PRN (Reason: Acid Reflux) lacosamide [Vimpat] 100 mg tablet 100 mg PO BID 90 Days Qty: 180 1RF Discharge Orders: Discharge Order (Routine); Ordered 10/08/24 Ordered By: Nasir Lewis Diet: Regular diet Activity on Discharge: Use cane or walker Activity Restrictions/Additional Instructions: Physical Therapy for Total knee arthroplasty: WBAT, gait training, ROM 0-12, quad strength Limit stair climbing No showering, no tub bath-keep dressing clean, dry and intact No driving x6 weeks Continue Aspirin twice a day x [address] [facility] Orthopedics in 2 weeks: . Print Language: Iranian
--- NOTE | 2024-10-08 07:51 | W.MHC.F2F ---
Service Date Service Date: 10/08/24 Encounter Date of encounter: 10/08/24 Reasons for Services Signs and symptoms assessed: Weakness, poor balance, poor gait mechanics Reason for physical therapy: home safety and mobility, therapeutic exercises, restore joint function, gait/transfer training, ADL training and energy conservation Reason for occupational therapy: home safety and mobility, therapeutic exercises, restore joint function, gait/transfer training, ADL training and energy conservation Homebound: Leaving the home is medically contraindicated at this time without the asist of a device and/or another person due th the listed conditions above and below. Reason homebound: unsteady gait / fall risk, poor balance / fall risk and unable to drive Homebound supporting statement: Pt. is considered home bound due to recent surgery. Unable to drive, poor balance, poor gait mechanics. Certification: Based on the above findings, I certify that this patient is confined to the home and needs intermittent detention care, physical therapy and/or speech therapy, or continues to need occupational therapy. The patient is under my care, and I have initiated the establishment of the plan of care. The patient will be followed by a physician who will periodically review the plan of care. Time Spent With Patient Time: Total time managing care of this patient today ____ minutes.
--- NOTE | 2024-10-08 09:19 | P.PNIM_ITS ---
Subjective Subjective Date of Service: 10/08/24 Interval History: no complaints, recalled for hyponatremia Physical Exam 2 Vital Signs: Vital Signs: Last Vital Signs Temp 97.1 F 10/08/24 08:00 Pulse 85 10/08/24 08:00 Resp 16 10/08/24 08:00 BP 137/68 10/08/24 08:00 Pulse Ox 94 10/08/24 08:00 O2 Del Method Room Air 10/08/24 08:00 O2 Flow Rate 2 10/06/24 14:35 BMI result Body Mass Index 33.3 Const: General: cooperative, healthy appearing and no acute distress Resp: Effort & Inspection: normal respiratory effort and able to speak in complete sentences Cardio: Rate: regular rate Peripheral pulses: Peripheral pulses 2+ throughout GI: Palpation (GI): Soft to palpation Skin: General skin exam: no rashes or lesions noted Extrem: Other: bandage clean dry and intact. [place] intact. No erythema or joint effusion. Calf supple nontender. Neurovascularly intact. Objective Data Active Medications Acetaminophen (Acetaminophen 325 Mg Tablet) 650 mg PO Q6H PRN PRN Reason: Pain, Mild (Pain Scale 1-3), fever or headache Last Admin: 10/06/24 21:40 Dose: 650 mg Documented By: АННА Aspirin (Aspirin 325 Mg Tablet) 325 mg PO BID [facility] Last Admin: 10/07/24 21:13 Dose: 325 mg Documented By: CAREN Calcium Carbonate (Calcium Carbonate 750 Mg Tab.Chew) 1 mg PO TID PRN PRN Reason: Acid Reflux Last Admin: 10/07/24 11:41 Dose: 1 mg Documented By: ALEJANDRO Docusate Sodium (Docusate Sodium 100 Mg Capsule) 100 mg PO DAILY [facility] Last Admin: 10/07/24 08:38 Dose: 100 mg Documented By: ALEJANDRO Fluoxetine HCl (Fluoxetine Hcl 20 Mg Capsule) 60 mg PO DAILY [facility] Last Admin: 10/07/24 08:36 Dose: 60 mg Documented By: ALEJANDRO Hydromorphone HCl (Hydromorphone Hcl 0.5 Mg/0.5 Ml Syringe) 0.25 mg IVPUSH Q4H PRN; Protocol PRN Reason: Pain, Severe (Pain Scale 7-10) Lacosamide (Lacosamide 100 Mg Tablet) 100 mg PO BID [facility] Last Admin: 10/07/24 21:13 Dose: 100 mg Documented By: CAREN Magnesium Hydroxide (Milk Of Magnesia 30 Ml Oral.Susp) 30 ml PO DAILY PRN PRN Reason: Constipation Melatonin (Melatonin 3 Mg Tablet) 6 mg PO BEDTIME PRN PRN Reason: Insomnia Naloxone HCl (Naloxone Hcl 0.4 Mg/Ml Vial) 0.04 mg IVPUSH Q5M PRN PRN Reason: Excessive sedation or RR < 8 Ondansetron HCl (Ondansetron Hcl 4 Mg/2 Ml Vial) 4 mg IVPUSH Q8H PRN PRN Reason: Nausea and Vomiting Last Admin: 10/07/24 08:37 Dose: 4 mg Documented By: ALEJANDRO Oxycodone HCl (Oxycodone Hcl Immed Release 5 Mg Tablet) 5 mg PO Q4H PRN PRN Reason: Pain, Moderate(Pain Scale 4-6) Last Admin: 10/07/24 15:29 Dose: 5 mg Documented By: ALEJANDRO Oxycodone HCl (Oxycodone Hcl Er 10 Mg Tab.Er.12h) 10 mg PO BID [facility] Last Admin: 10/07/24 21:13 Dose: 10 mg Documented By: CAREN Sodium Chloride (0.9 % Sodium Chloride Flush 3 Ml Syringe) 3 ml IVFLUSH QSHIFT [facility] Last Admin: 10/07/24 21:14 Dose: 3 ml Documented By: CAREN Vitamin D (Cholecalciferol (Vitamin D3) 25 Mcg Tablet) 25 mcg PO DAILY [facility] Last Admin: 10/07/24 08:36 Dose: 25 mcg Documented By: ALEJANDRO Labs 10/08/24 05:46 10/08/24 05:46 Labs: Laboratory Results - last 24 hr 10/07/24 10/08/24 05:48 05:46 MCV 88.2 MCH 30.4 MCHC 34.4 RDW 13.9 Plt Count 152 L D MPV 12.9 H Immature Gran % (Auto) 0.6 H Neut % (Auto) 78.1 H Lymph % (Auto) 5.8 L [place] % (Auto) 15.3 H Eos % (Auto) 0.0 Baso % (Auto) 0.2 Lymph # (Auto) 0.7 L [place] # (Auto) 2.0 H Eos # (Auto) 0.0 Baso # (Auto) 0.0 Abs Immat Gran (auto) 0.08 H Absolute Neuts (auto) 10.0 H Absolute Nucleated RBC 0.000 Nucleated RBC % (auto) 0.0 Smear Tech's Comments VERIFIED Anion Gap 12 Estim Creat Clear Calc 103.3 Estimated GFR > 60 Fasting Glucose 125 H Calcium 8.6 Assessment and Plan (1) Hyponatremia: Status: Acute Plan 69F PMH osteoarthritis, mood disorder, seizure disorder admitted for elective right knee replacement for osteoarthritis now complicated by hyponatremia acute hyponatremia 123 differential includes lab error, SIADH from pain/surgery/SSRI/antiepileptic check urine electrolytes, urine osmolality, repeat bmp fluid restrict for now Mood disorder Continue fluoxetine Seizure disorder Continue lacosamide Quality Stroke Does the patient have a stroke diagnosis?: No VTE Prior VTE?: No VTE Risk Level:: Surgical - very high VTE Device Contraindication: N/A - Device Ordered VTE Drug Contraindication: N/A - Med Ordered
[2024-10-08] MEDS: Lacosamide 100 MG TABLET PO ×2 (09:27→20:14)
[2024-10-08] MEDS: Aspirin 325 MG TABLET PO ×2 (09:27→20:16)
[2024-10-08] MEDS: FLUoxetine HCl 20 MG CAPSULE 60 MG PO (09:27)
[2024-10-08] MEDS: Cholecalciferol (Vitamin D3) 25 MCG TABLET PO (09:27)
[2024-10-08] MEDS: oxyCODONE HCl ER 10 MG TAB.ER.12H PO ×2 (09:27→20:14)
[2024-10-08] MEDS: Docusate Sodium 100 MG CAPSULE PO (09:28)
[2024-10-08] MEDS: 0.9 % Sodium Chloride Flush 3 ML SYRINGE IVFLUSH ×3 (09:28→23:19)
[2024-10-08 09:48] LABS: Osmolality Urine 447 mosm/kg (373-1093)
[2024-10-08 12:54] LABS: Sodium 125 mmol/L (135-145)
--- NOTE | 2024-10-08 14:14 | MHC.CM.PN ---
[facility] UPDATED THAT PATIENT WILL NOT DC TODAY SECONDARY TO HYPONATREMIA. [facility] WILL FOLLOW UP ON FRIDAY. CONTACT NUMBER FOR S3 GIVEN.
[2024-10-08] MEDS: Sodium Chloride Tab 1 GM TABLET PO ×2 (15:03→20:14)
[2024-10-09 02:56] VITALS: BP 121/56; PULSE 83; RESP 16; TEMP 36; O2SAT 96
[2024-10-09 07:33] LABS: MANUAL DIFF FLAG NO
[2024-10-09 07:45] LABS: Basophils Percent Auto 0.3 % (0-2); Eosinophils Percent Auto 0.2 % (0-4); Lymphocytes Absolute Auto 0.8 X10*3/uL (1.2-4.9); Lymphocytes Percent Auto 8.3 % (20-40); Mean Corpuscular HGB Conc 34.5 g/dl (31.0-35.0); Mean Corpuscular Hemoglobin 30.8 pg (27.0-33.0); Mean Corpuscular Volume 89.2 fL (80.0-98.0); Mean Platelet Volume 12.2 fL (9.4-12.3); Monocytes Absolute Auto 1.4 X10*3/uL (0.1-1.2); Neutrophils Absolute Auto 7.2 x10*3/uL (2.0-8.3); Neutrophils Percent Auto 75.2 % (45-73); Platelet Count 165 X10*3/uL (160-400); Red Blood Count 3.25 X10*6/uL (4.20-5.50); Red Cell Distribution Width 14.1 % (11.0-16.0); White Blood Count 9.6 X10*3/uL (4.8-10.8)
[2024-10-09 08:00] VITALS: BP 111/60; PULSE 82; RESP 16; TEMP 36; O2SAT 95
[2024-10-09 08:04] LABS: Anion Gap 13 (12-20); Blood Urea Nitrogen 8 mg/dL (9-16); Calcium 8.8 mg/dL (8.4-10.2); Carbon Dioxide 26 mmol/L (22-29); Chloride 96 mmol/L (96-108); Creatinine Clr Calc Pharmacy 99.9; Estimated Glomerular Filt Rate > 60; Glucose Fasting 98 mg/dL (60-99); Potassium 3.4 mmol/L (3.3-5.1); Sodium 132 mmol/L (135-145)
[2024-10-09 08:24] VITALS: BP 111/60; PULSE 82; O2SAT 95
--- NOTE | 2024-10-09 08:48 | PM.DS ---
DS: Providers Provider Date of Service: 10/09/24 Date of discharge: 10/09/24 Primary care physician: Rodrigo Kelly PA-C Consults: 10/06/24 14:50 Consult to Hospitalist Routine Comment: Consulting Provider: [facility] Hospitalists Reason For Exam: Routine medical management DS: Diagnosis Discharge Diagnosis (1) Hyponatremia: Status: Acute DS: Summary Hospital Course Hospital Course: The patient underwent a successful right total knee arthroplasty on 10/06/[address] Feng, was transferred to PACU and then to the floor to recover. During their stay, their vitals were stable, afebrile at 97.8. Labs were unremarkable, H/H 10.3/29.9. POD 1 he was started on ASA 325mg tabs po bid for DVT ppx, they also received Physical Therapy services twice a day. Physical therapy should include gait training, ROM to tolerance and quad strength. He is WBAT. Prior to discharge, his dressing was changed, incision clean dry and intact, new Aquacel dressing applied. The Aquacel dressing should remain intact and dry at all times. Any concerns with the dressing, please contact orthopedic office. No showering. The plan is to be discharged home with [facility] Medical summary: Postoperatively patient was noted to have a sodium of 123. She was therefore transferred to Medical Service. 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 Likely triggered by surgery/pain in the setting of chronic fluoxetine and lacosamide. Fluoxetine and lacosamide were continued, but patient was put on a fluid restriction and given salt tablets. Sodium increased at an appropriate rate and is 132 on discharge. She should continue fluid restriction for about 1-2 weeks and check BMP in about 1 week. Time Attestation Discharge Coordination Time (in mins): 32 Quality: Safe Use of Opioids Does Pt have an Active Cancer Diagnosis on the Problem List?: No Quality: Stroke Does the patient have a stroke diagnosis?: No Physical Exam Vital Signs: Vital Signs: Last Vital Signs Temp 96.8 F 10/09/24 08:00 Pulse 82 10/09/24 08:24 Resp 16 10/09/24 08:00 BP 111/60 10/09/24 08:24 Pulse Ox 95 10/09/24 08:24 O2 Del Method Room Air 10/09/24 08:00 O2 Flow Rate 2 10/06/24 14:35 BMI result Body Mass Index 33.3 Const: General: cooperative, healthy appearing and no acute distress Resp: Effort & Inspection: normal respiratory effort and able to speak in complete sentences Cardio: Rate: regular rate Peripheral pulses: Peripheral pulses 2+ throughout GI: Palpation (GI): Soft to palpation Skin: General skin exam: no rashes or lesions noted Extrem: Other: bandage clean dry and intact. Rehan intact. No erythema or joint effusion. Calf supple nontender. Neurovascularly intact. DS: Data Data Completed and Pending Pending studies at discharge: Pending at discharge 10/06/24 13:25 Surgical [PTH] Routine Labs on day of discharge: Laboratory Results - last 24 hr 10/08/24 10/08/24 10/09/24 09:06 12:31 06:22 WBC 9.6 RBC 3.25 L Hgb 10.0 L Hct 29.0 L MCV 89.2 MCH 30.8 MCHC 34.5 RDW 14.1 Plt Count 165 MPV 12.2 Immature Gran % (Auto) 1.0 H Neut % (Auto) 75.2 H Lymph % (Auto) 8.3 L [place] % (Auto) 15.0 H Eos % (Auto) 0.2 Baso % (Auto) 0.3 Lymph # (Auto) 0.8 L [place] # (Auto) 1.4 H Eos # (Auto) 0.0 Baso # (Auto) 0.0 Abs Immat Gran (auto) 0.10 H Absolute Neuts (auto) 7.2 Absolute Nucleated RBC 0.000 Nucleated RBC % (auto) 0.0 Sodium 125 L 132 L Potassium 3.4 Chloride 96 Carbon Dioxide 26 Anion Gap 13 BUN 8 L Creatinine 0.60 Estim Creat Clear Calc 99.9 Estimated GFR > 60 Fasting Glucose 98 Calcium 8.8 Urine Osmolality 447 Ur Random Sodium 46.0 Discharge Plan Discharge Patient Disposition: Home Health Service Referrals: [facility] [Outside] - 3-5 Days Ayse Olmos PA-C [Physician Team Supervisor] - 2 Weeks (10/21/24 13:15 [facility] Orthopedic Surgeons Ayse Olmos PA-C) Other Ambulatory Orders: Basic Metabolic Panel (Routine) Timeframe: 1 Week Facility: [facility] - Location: Laboratory Ordered By: Klaus Su Discharge Medications: New aspirin 325 mg Tablet 325 mg PO BID 42 Days Qty: 84 0RF oxycodone 5 mg Tablet 5 mg PO Q4H PRN (Reason: Pain, Moderate(Pain Scale 4-6)) 7 Days Qty: 42 0RF Rx Instructions: Partial Fill upon patient request. acetaminophen 325 mg Tablet 650 mg PO Q6H PRN (Reason: Pain, Mild (Pain Scale 1-3), fever or headache) 30 Days Qty: 240 0RF Continued cholecalciferol (vitamin D3) 25 mcg (1,000 unit) tablet 25 mcg PO DAILY Qty: 30 0RF (DME) walker [facility] See Rx Instructions .ROUTE .MEDSUPPLY Qty: 1 0RF Rx Instructions: Folding front wheeled walker fluoxetine 20 mg tablet 60 mg PO DAILY 90 Days Qty: 270 1RF Rx Instructions: administer in the morning and at noon/midday docusate sodium [Colace] 100 mg Capsule 100 mg PO BEDTIME calcium carbonate-simethicone 500-20 mg Tablet,Chewable 2 tab PO NEEDED PRN (Reason: Acid Reflux) lacosamide [Vimpat] 100 mg tablet 100 mg PO BID 90 Days Qty: 180 1RF Discharge Orders: Discharge Order (Routine); Ordered 10/09/24 Ordered By: Kluas Su Diet: Regular diet Activity on Discharge: Use cane or walker Activity Restrictions/Additional Instructions: Physical Therapy for Total knee arthroplasty: WBAT, gait training, ROM 0-12, quad strength Limit stair climbing No showering, no tub bath-keep dressing clean, dry and intact No driving x6 weeks Continue Aspirin twice a day x 6 weeks Follow up with [facility] Orthopedics in 2 weeks: Fluid restrict 1.5-2 L per day, repeat labs in about 1 week . Print Language: Brazilian
[2024-10-09] MEDS: Lacosamide 100 MG TABLET PO (09:01)
[2024-10-09] MEDS: Cholecalciferol (Vitamin D3) 25 MCG TABLET PO (09:01)
[2024-10-09] MEDS: FLUoxetine HCl 20 MG CAPSULE 60 MG PO (09:01)
[2024-10-09] MEDS: Docusate Sodium 100 MG CAPSULE PO (09:01)
[2024-10-09] MEDS: oxyCODONE HCl ER 10 MG TAB.ER.12H PO (09:01)
[2024-10-09] MEDS: Aspirin 325 MG TABLET PO (09:01)
[2024-10-09] MEDS: Sodium Chloride Tab 1 GM TABLET PO (09:02)
[2024-10-09] MEDS: Potassium Chloride ER 20 MEQ TAB.ER.PRT 40 MEQ PO (09:06)
[2024-10-09] MEDS: 0.9 % Sodium Chloride Flush 3 ML SYRINGE IVFLUSH (09:07)
--- NOTE | 2024-10-09 09:10 | MHC.CM.PN ---
pt dcd today grayson notified
== END 2024-10-09 10:36 | disposition home health service (06) ==
LOC: HO.SSS 09:45 → HO.S3 14:24
PROVIDERS: Internal Medicine; Orthopaedic Surgery; Physician Assistant; PCP Physician Assistant; Visit Provider Internal Medicine
PROC: (CPT 27447; principal; 2024-10-06 11:50)
DX: M17.11 Unilateral primary osteoarthritis, right knee (principal); E87.1 Hypo-osmolality and hyponatremia; E55.9 Vitamin D deficiency, unspecified; E78.5 Hyperlipidemia, unspecified; F33.0 Major depressive disorder, recurrent, mild; F39 Unspecified mood [affective] disorder; F41.9 Anxiety disorder, unspecified; G40.909 Epilepsy, unspecified, not intractable, without status epilepticus; G43.909 Migraine, unspecified, not intractable, without status migrainosus; G47.33 Obstructive sleep apnea (adult) (pediatric); Z85.42 Personal history of malignant neoplasm of other parts of uterus; Z79.82 Long term (current) use of aspirin; Z79.899 Other long term (current) drug therapy; Z99.89 Dependence on other enabling machines and devices; Z88.2 Allergy status to sulfonamides; Z88.5 Allergy status to narcotic agent; Z88.6 Allergy status to analgesic agent; Z91.041 Radiographic dye allergy status; L23.1 Allergic contact dermatitis due to adhesives; Z87.891 Personal history of nicotine dependence; Z98.890 Other specified postprocedural states
CPT/HCPCS: 27447; 36415; 80048; 83935; 84295; 84300; 85025; 86850; 86900; 86901; 87640; 87641; 88305; 88311; 97110; 97116; 97140; 97161; 97530; C1713; C1776; J0131; J0665; J0690; J1100; J1171; J2003; J2250; J2405; J2704; J7120

== ENCOUNTER → 2024-10-06 09:42 | Outpatient (BNV) | payer MEDICARE, SELFPAY | PROVIDERS: PCP Physician Assistant; Visit Provider Internal Medicine | DX: E87.1 Hypo-osmolality and hyponatremia (principal) | CPT/HCPCS: 99202; 99213 ==

== ENCOUNTER → 2024-10-06 09:42 | Outpatient (BNV) | payer MEDICARE, SELFPAY | PROVIDERS: PCP Physician Assistant; Visit Provider Orthopaedic Surgery | DX: Z47.1 Aftercare following joint replacement surgery (principal); Z96.651 Presence of right artificial knee joint | CPT/HCPCS: 27447; 99024; G0180 ==

== ENCOUNTER 2024-10-15 15:00 | Outpatient (REF) | payer MEDICARE, SELFPAY ==
[2024-10-15 16:59] LABS: Anion Gap 12 (12-20); Blood Urea Nitrogen 8 mg/dL (9-16); Calcium 9.3 mg/dL (8.4-10.2); Carbon Dioxide 28 mmol/L (22-29); Chloride 101 mmol/L (96-108); Estimated Glomerular Filt Rate > 60; Glucose Random 91 mg/dL (60-115); Potassium 4.3 mmol/L (3.3-5.1); Sodium 137 mmol/L (135-145)
== END 2024-10-15 15:01 | disposition home or self-care (01) ==
LOC: HO.LAB 15:00
PROVIDERS: PCP Physician Assistant; Visit Provider Internal Medicine
DX: E22.2 Syndrome of inappropriate secretion of antidiuretic hormone (principal)
CPT/HCPCS: 36415; 80048

== ENCOUNTER 2024-10-21 11:12 | Outpatient (REF) | payer MEDICARE, SELFPAY | END 2024-10-21 11:13 | disposition home or self-care (01) | LOC: HO.HOSX 11:12 | PROVIDERS: Visit Provider Physician Assistant | DX: M25.562 Pain in left knee (principal); M25.561 Pain in right knee; E87.1 Hypo-osmolality and hyponatremia; Z96.651 Presence of right artificial knee joint | CPT/HCPCS: 73560; 73562; 99212 ==

== ENCOUNTER 2024-10-21 13:00 | Outpatient (AMB) | payer MEDICARE, SELFPAY ==
--- NOTE | 2024-10-21 13:22 | MHC.OFFVIS ---
Intake Visit Reasons: 2WK PO: Right TKA 10/06/24 NE Intake Note: Kirstin is a 69 year old female who presents today for a post op appointment s/p Right TKA 10/06/24 NE. Patient reports she is doing well. She mentions little to no pain. Allergies Gadolinium-Containing Contrast Medi Allergy (Severe, Verified 10/21/24 13:27) allergice ibuprofen [From Advil] Adverse Reaction (Intermediate, Verified 10/21/24 13:27) sensitivity adhesive tape Adverse Reaction (Unknown, Verified 10/21/24 13:27) Sensitivity codeine Adverse Reaction (Verified 10/21/24 13:27) Unknown Sulfa (Sulfonamide Antibiotics) Adverse Reaction (Verified 10/21/24 13:27) Unknown MRI dye Adverse Reaction (Uncoded 10/06/24 09:51) warmth HPI HPI 2WK PO: Right TKA 10/06/24 NE: Details: 69-year-old female who presents in the office today for a 15 days status post right total knee arthroplasty, which was performed on 10/06/[address] Feng. While in the office today, the patient reports she is doing well post-operatively; however, she mentions experiencing mild to no pain in her right knee. [facility] Medical History Uterine cancer Arthritis Back pain GERD (gastroesophageal reflux disease) Sleep apnea Microscopic hematuria Hyperlipemia Refractive error Grand mal seizure Family history of sudden cardiac in daughter Chronic headaches Hemorrhoids Depression Osteoarthritis of knee Surgical History Hx of shoulder surgery Hx of hand surgery History of tonsillectomy and adenoidectomy History of total abdominal hysterectomy H/O dilation and curettage H/O section H/O colonoscopy S/P arthroscopy of right knee Family History Father Glaucoma Maternal Aunt CAD (coronary artery disease) Paternal Grandmother CAD (coronary artery disease) Maternal Aunt Breast cancer Mother No problems noted. Maternal Grandmother Cancer of brain Social History Household Members: Spouse Housing: House Are you a primary school childcare attendant to a significant other at home: No Do you presently have visiting nurse or other home services: No Alcohol intake: current Alcohol intake frequency: does not drink Alcohol type: wine Comment: pt rings appropriately Patient Tobacco Use Status: Former Tobacco user Tobacco use type: Cigarette e-Cigarette/Vaping Use: Never Used Second Hand Smoke Exposure: Yes service: No Current occupational status: retired Current occupational exposures/hazards: No Cognitive needs: No Hearing needs: No Vision needs: No Review of Systems Const All systems reviewed & are unremarkable except as noted in HPI and below Physical Exam Const General: cooperative, healthy appearing and no acute distress Resp Effort & Inspection: normal respiratory effort and able to speak in complete sentences Cardio Rate: regular rate Peripheral pulses: Peripheral pulses 2+ throughout GI Palpation (GI): Soft to palpation Skin Lesions: no lesions Rashes: no rashes Extrem Other: Right knee: Incision site is clean drying intact. [place] intact. No surrounding erythema or drainage. No signs of infection. Range of motion 10 to 100 degrees. Assessment & Plan Assessment & Plan (1) Status post total right knee replacement: Code(s): Z96.651 - Presence of right artificial knee joint Category: Surgical (2) Hyponatremia: Code(s): E87.1 - Hypo-osmolality and hyponatremia Category: Medical Plan Ms. Chávez is a 69-year-old female who presents in the office today for a 15 days status post right total knee arthroplasty, which was performed on 10/06/[address] Feng. While in the office today, the patient reports she is doing well post-operatively; however, she mentions experiencing mild to no pain in her right knee. Rehan were removed and steri-strips applied. She will continue to work with physical therapy and an outpatient physical therapy order has also been placed today. A prescription for oxycodone 5-325 mg PO Q6H was sent to the pharmacy for pain. Follow-up will be in 6 weeks, or sooner if needed. X-rays of the right knee, which were obtained while in the office today and were reviewed by me, Ayse Olmos PA-C, revealed: Intact orthopedic hardware with proper alignment. Orders: Orders XR knee LT 1V Today M25.569 - Pain in unspecified knee PT Evaluation and Treatment Today Z96.651 - Presence of right artificial knee joint XR knee RT 3V Today M25.569 - Pain in unspecified knee Medications: Changed From oxycodone Partial Fill upon patient request. 5 mg PO Q4H 7 days PRN 42 tabs 0RF Pain, Moderate(Pain Scale 4-6) To oxycodone Partial Fill upon patient request. 5 mg PO Q6H PRN 28 tabs 0RF Pain, Moderate(Pain Scale 4-6) 7 days Patient Instructions: Scribed by Najma Nguyễn medical billing and coding specialist, for Ayse Olmos PA-C on 10/21/24 at 01:58 pm EST. Coding Level of Care Code Global (56777) Diagnoses Status post total right knee replacement Z96.651 Hyponatremia E87.1
== END 2024-10-21 14:21 | disposition home or self-care (01) ==
PROVIDERS: PCP Physician Assistant; Visit Provider Physician Assistant
DX: Z96.651 Presence of right artificial knee joint (principal); E87.1 Hypo-osmolality and hyponatremia
CPT/HCPCS: 99024

== ENCOUNTER 2024-11-11 09:00 | Outpatient (REF) | payer MEDICARE, SELFPAY ==
--- NOTE | ~2024-11-11 | XR_ITS ---
CLINICAL HISTORY: M25.569 - Pain in unspecified knee Standing AP knees Comparison: None Findings: No acute fracture or dislocation identified. Right knee prosthesis demonstrates normal alignment. Mild degenerative change in left knee. Mild joint space loss in medial compartment. Impression: No acute bony abnormality This document has been electronically signed by: Easton Rangel MD on 11/12/2024 19:09:26
--- NOTE | ~2024-11-11 | XR_ITS ---
CLINICAL HISTORY: M25.561 - Pain in right knee Right knee two views Comparison: None Findings: No acute fracture or dislocation identified. Knee prosthesis demonstrates normal alignment. There is no evidence for component loosening. Two screws noted proximal tibia. Impression: No acute bony abnormality This document has been electronically signed by: Easton Rangel MD on 11/12/2024 19:09:59
== END 2024-11-11 09:01 | disposition home or self-care (01) ==
LOC: HO.HOSX 09:00
PROVIDERS: Visit Provider Orthopaedic Surgery
DX: M25.569 Pain in unspecified knee (principal); M25.561 Pain in right knee; Z96.651 Presence of right artificial knee joint
CPT/HCPCS: 73560; 73562; 99212

== ENCOUNTER 2024-11-11 09:33 | Outpatient (AMB) | payer MEDICARE, SELFPAY ==
--- NOTE | 2024-11-11 09:36 | A.OFFVIS_ITS ---
Vital Signs 11/11/24 09:43 Height 5 ft 5 in Weight 170 lb BMI 28.3 Intake Visit Reasons: PO: Right TKA 10/06/24 Intake Note: Kirstin is a 69 year old female who presents today for a post operative appointment s/p Right Knee Arthroplasty 10/06/2024. Patient reports that she is doing well, this past week has been rather difficult as she is having tightness and increased swelling. She has had cramping at night that is keeping her up. She mentions that she is unsure if this is because of sciatica. Feels as though she has plateaued. Allergies Gadolinium-Containing Contrast Medi Allergy (Severe, Verified 10/21/24 13:27) allergice ibuprofen [From Advil] Adverse Reaction (Intermediate, Verified 10/21/24 13:27) sensitivity adhesive tape Adverse Reaction (Unknown, Verified 10/21/24 13:27) Sensitivity codeine Adverse Reaction (Verified 10/21/24 13:27) Unknown Sulfa (Sulfonamide Antibiotics) Adverse Reaction (Verified 10/21/24 13:27) Unknown MRI dye Adverse Reaction (Uncoded 10/06/24 09:51) warmth HPI HPI PO: Right TKA 10/06/24: Details: Kirstin is a 69 year old female who presents today for a post operative appointment s/p Right Knee Arthroplasty 10/06/2024. Patient reports that she is doing well, this past week has been rather difficult as she is having tightness and increased swelling. She has had cramping at night that is keeping her up. She mentions that she is unsure if this is because of sciatica. Feels as though she has plateaued. [facility] Medical History Uterine cancer Arthritis Back pain GERD (gastroesophageal reflux disease) Sleep apnea Microscopic hematuria Hyperlipemia Refractive error Grand mal seizure Family history of sudden cardiac in daughter Chronic headaches Hemorrhoids Depression Osteoarthritis of knee Surgical History Hx of shoulder surgery Hx of hand surgery History of tonsillectomy and adenoidectomy History of total abdominal hysterectomy H/O dilation and curettage H/O section H/O colonoscopy S/P arthroscopy of right knee Family History Father Glaucoma Maternal Aunt CAD (coronary artery disease) Paternal Grandmother CAD (coronary artery disease) Maternal Aunt Breast cancer Mother No problems noted. Maternal Grandmother Cancer of brain Social History Household Members: Spouse Housing: House Are you a primary skin care therapist to a significant other at home: No Do you presently have visiting nurse or other home services: No Alcohol intake: current Alcohol intake frequency: does not drink Alcohol type: wine Comment: pt rings appropriately Patient Tobacco Use Status: Former Tobacco user Tobacco use type: Cigarette e-Cigarette/Vaping Use: Never Used Second Hand Smoke Exposure: Yes service: No Current occupational status: retired Current occupational exposures/hazards: No Cognitive needs: No Hearing needs: No Vision needs: No Physical Exam Vital Signs: BMI result Body Mass Index 28.3 Extrem Other: Incision clean dry and intact 15-95 degrees motion Results Reviewed Results Reviewed: I personally reviewed relevant radiographs. Right total knee arthroplasty in expected post operative position with no hardware complications or evidence of loosening Assessment & Plan Assessment & Plan (1) Status post total right knee replacement: Code(s): Z96.651 - Presence of right artificial knee joint Category: Surgical Plan: Right knee status post knee replacement. She has returned to her baseline motion and I encouraged her to continue to work on strengthening and bending her knee. She is doing well at this 6 week time point and I explained this to her and described my expectations for the 1st 3 months. She will follow up in 6 weeks. Orders: Orders XR knee LT 1V Today M25.569 - Pain in unspecified knee XR knee RT 3V Today M25.561 - Pain in right knee Coding Level of Care Code Global (76051) Diagnoses Status post total right knee replacement Z96.651
[2024-11-11 09:43] VITALS: BMI 28.3
== END 2024-11-11 10:03 | disposition home or self-care (01) ==
PROVIDERS: PCP Physician Assistant; Visit Provider Orthopaedic Surgery
DX: Z96.651 Presence of right artificial knee joint (principal)
CPT/HCPCS: 99024

== ENCOUNTER → 2024-11-11 09:35 | Outpatient (BNV) | payer MEDICARE, SELFPAY | PROVIDERS: Visit Provider Radiology Diagnostic Radiology | DX: M25.561 Pain in right knee (principal); M25.562 Pain in left knee | CPT/HCPCS: 73560; 73562 ==

== ENCOUNTER 2024-11-26 12:16 | Outpatient (REF) | payer MEDICARE, SELFPAY ==
[2024-11-26 13:57] LABS: Anion Gap 12 (12-20); Blood Urea Nitrogen 10 mg/dL (9-16); Calcium 9.2 mg/dL (8.4-10.2); Carbon Dioxide 28 mmol/L (22-29); Chloride 104 mmol/L (96-108); Estimated Glomerular Filt Rate > 60; Glucose Random 89 mg/dL (60-115); Magnesium 2.2 mg/dL (1.6-2.6); Potassium 4.7 mmol/L (3.3-5.1); Sodium 139 mmol/L (135-145)
--- OUTSIDE RECORDS SUMMARY | 2024-11-26 14:21 | XMS_ITS | Data Portability ---
Author Organization [facility], [place] [facility] Address [address] [place] [address] Care Team Providers Care Medical Staffing Coordinator Name Role Phone PHANI TREJO Primary Care Provider [phone] PHANI TREJO Referring Provider Assessment Encounter Date Assessment Date Assessment LastModified by Organization Details LastModified Time 09/10/2018 09/10/2018 Impression: This patient with a previous tibial tubercle osteotomy comes in today with a presentation of patellofemoral osteoarthritis. I cannot rule out a component of a Castellano cyst although that seems to have improved. Plan: We discussed options today and decided to proceed with a corticosteroid injection to calm the knee down. This was performed under sterile conditions without complication and degenerate 17 cc of serous fluid which was removed prior to the corticosteroid injection. I'd like to see her back in about a week and see how she's doing. I would consider Visco supplementation for this patient as she does have ongoing patellofemoral osteoarthritis. I also like to get her back into physical therapy to strengthen the muscles across the knee joint. Patient is advised to avoid kneeling squats and lunges. [email or web address] Not available 09/10/2018 18:06:32 09/17/2018 09/17/2018 This 63-year-old with history of tibial tubercle transfer and chondromalacia patella comes in 1 week after her intra-articular corticosteroid injection in the right knee reporting feeling about 90% better. Still has some tenderness over the facets of the patella by exam. We had a prolonged discussion today regarding her options. She understands within to try to limit the intra-articular corticosteroid injections to no bone remaining here. We discussed the options of viscous supplementation and platelet rich plasma. She understands that neither of these options are covered by her insurance. She like to see how she does over the next few weeks to few months. She has a big trip to [facility] coming up and if she feels she needs her second corticosteroid injection prior to that trip I am willing to do that but she understands that I cannot keep giving him his corticosteroid injections. If she does well for short period of time the symptoms recur then she'll reconsider the options of physical supplementation and platelet rich plasma. [email or web address] Not available 09/17/2018 12:57:59 Plan of Treatment Reminders Order Date Submit Date Provider Last Modified By Organization Details Last Modified Time Details Appointments None record ed. Lab None record ed. Referral None record ed. Procedures None record ed. Surgeries None record ed. Imaging XR, knee, 3 view 018 09/10/20 18 [email or web address] Not available 8 07:47:53 Medication Orders None record ed. Patient TargetsNo targets recorded. Patient Instructions Encounter Date Encounter Id Patient Instructions Last Modified By Organization Details Last Modified Time 09/10/2018 [id number] knee arthritis: care instructions [email or web address] Not available 09/10/2018 18:07:08 knee pain or injury: care instructions [email or web address] Not available 09/10/2018 18:07:08 09/17/2018 [id number] knee arthritis: care instructions [email or web address] Not available 09/17/2018 12:58:03 knee pain or injury: care instructions [email or web address] Not available 09/17/2018 12:58:03 Reason for Referral None Reported. Results Created Date Observation Date Name Description Value Unit Range Abnormal Flag Note LastModifiedBy Organization Detail LastModifiedTime 09/10/20 18 knee RT No observ ation record ed. [email or web address] [address], [address] 09/11/2018 12:45:01 Result Notes None recorded. Problems Name Problem SNOMED Code Status Onset Date Resolution Date Notes Provider Name and Address Organization Details Recorded Time Malignant neoplastic disease 096333212 Active 2008 endometri al; Recorded 9 9:50AM by Claudia Van, Office Visit; Promoted; acuity set as * Not Available [facility] 7 22:47:11 Migraine 79585116 Active 2008 Recorded 9 9:50AM by Claudia Van, Office Visit; Promoted; acuity set as * Not Available [facility] 7 22:47:11 Epilepsy 19182473 Active 2008 Recorded 9 9:50AM by Claudia Van, Office Visit; Promoted; acuity set as * Not Available [facility] 7 22:47:11 Wears glasses 860088670 Active 2008 Recorded 9 9:50AM by Claudia Van, Office Visit; Promoted; acuity set as * Not Available [facility] 7 22:47:11 Does use contact lenses 920055597 Active 2008 Recorded 9 9:50AM by Claudia Van, Office Visit; Promoted; acuity set as * Not Available [facility] 7 22:47:11 Absent tonsils Active 2008 Recorded 9 9:50AM by Claudia Van, Office Visit; Promoted; acuity set as * Not Available [facility] 7 22:47:11 History of appendicit is 058699507 Active 2008 Recorded 9 9:50AM by Claudia Van, Office Visit; Promoted; acuity set as * Not Available [facility] 7 22:47:55 Past history of section 360606186 Active 2008 Recorded 9 9:50AM by Claudia Van, Office Visit; Promoted; acuity set as * Not Available [facility] 7 22:47:55 History of total hysterecto my 295835302 Active 2008 Recorded 9 9:50AM by Claudia Van, Office Visit; Promoted; acuity set as * Not Available [facility] 7 22:47:55 Knee pain Active 2017 Darius NAVARRETE MD [address] [facility] [address], [place], [address] , [facility] 8 09:56:21 Osteoarthr itis of knee 210424592 Active 2017 Darius NAVARRETE MD [address] [place] [address],[address], [place], [address] , [facility] 8 09:56:54 Notes:11/15/2008: Wrist/Hand surgery (unspecified) ; OnsetDate: 11/15/2008; Recorded 11/15/2008 9:50AM by Claudia Van, Office Visit; Promoted; acuity set as * Problem Notes None recorded. Procedures Surgical History Date Name Laterality Status Provider Name and Address Organization Details Recorded Time 09/10/20 18 LDD Knee Right completed L PRINCESS NAVARRETE MD [address] [facility] [address], [place], [address], [facility] 09/10/2018 18:06:44 Caesarean Section completed [facility] 09/10/2018 09:44:25 Unlisted procedure breast completed [facility] 09/10/2018 09:44:41 Hysterectomy completed [facility] 09/10/2018 09:44:46 Tibial arthroscopy/surg jaya completed [facility] 09/10/2018 09:45:30 Shoulder Surgery completed [facility] 09/10/2018 09:46:27 Imaging Results Imaging Date Name Status LastModified by Organiz ation Details LastModified Time 09/10/2018 knee RT completed [email or web address] [facility] [address], [address] 09/11/2018 12:45:01 Procedure Notes None recorded. Medical Equipment None Reported. Allergies Allergen ID Allergen Name Allergen Category Reaction Reaction Severity Criticality Documentation Date Start Date Code Code System Note Provider Name and Address Organization Details Recorded Time 796378 adhesive tape environme nt,medica tion Not available Not available Not available 12/30/20162008 81333 UNK Comme nt: Recor ded 11/15 9:50A M by Claudia Lynn es, Offic e Visit ; [employer] [place]; Tye siegel ce:*; Not Available [facility] 7 20:16:30 120408 Advil medicatio n Not available Not available Not available 12/30/20162008 25945 0 RxNorm Comme nt: Recor ded 11/15 9:50A M by Claudia Stapl es, Offic e Visit ; [employer] [place]; Signi fican ce:*; Not Available [facility] 7 20:16:30 026279 Bactrim medicatio n Not available Not available Not available 12/30/20162008 67893 9 RxNorm Comme nt: Recor ded 11/15 9:50A M by Claudia Stapl es, Offic e Visit ; [employer] [place]; Signi fican ce:*; Not Available [facility] 7 20:16:30 921581 adhesive tape environme nt,medica tion Not available Not available Not available 10/03/20172008 20834 UNK Comme nt: Recor ded 11/15 9:50A M by Claudia Stapl es, Offic e Visit Prom [employer] Signi fican ce: *; Not Available [facility] 7 01:39:27 Medications Name Sig Start Date Stop Date Status Note LastModified by Organization Details LastModified Time Vitamin D active Not Available Not Jackie ilable Not Available Prozac active Not Available Not Availa ble Not Available Vimpat 100 mg tablet Take 1 tablet twice a day by oral route. active Not Available Not Available No t Available Multi Vitamin active Not Available Not Available Not Available Vitals Date Recorded Body height Provider Name an d Address Organization Details Last Updated DateTime 09/10/2018 165.1 cm Rochelle [facility] 09/10/2018 09:35:12 Date Recorded Body mass index (BMI) Body weight Provider Name and Address Organization Details Last Updated DateTime 09/10/2018 27.5 kg/m2 27380.74 g Rochelle Lay [facility] 09/10/2018 09:35:15 Date Recorded Pain severity - 0-10 verbal numeric rating [Score] - Reported Provider Name and Address Organization Details Last Updated DateTime 09/10/2018 9 Not Available [facility] 8 05:59:43 Date Recorded Body temperature Provider Name a nd Address Organization Details Last Updated DateTime 09/10/2018 97.2 [degF] Rochelle Lay [facility] 09/10/2018 09:35:26 Date Recorded Body height Provider Name an d Address Organization Details Last Updated DateTime 09/17/2018 165.1 cm Darius NAVARRETE MD [address] [place] [address],[address], [address] 09/17/2018 09:18:27 Date Recorded Body mass index (BMI) Body weight Provider Name and Address Organization Details Last Updated DateTime 09/17/2018 27.5 kg/m2 03354.74 g Darius NAVARRETE MD [address] [place] [address],[address], [facility] 09/17/2018 09:18:30 Date Recorded Pain severity - 0-10 verbal numeric rating [Score] - Reported Provider Name and Address Organization Details Last Updated DateTime 09/17/2018 7 Not Available [facility] 8 05:36:26 Date Recorded Body temperature Provider Name a nd Address Organization Details Last Updated DateTime 09/17/2018 96.7 [degF] Darius NAVARRETE MD [address] [place] [address], [facility] 09/17/2018 09:18:36 Social History None recorded. Functional Status None recorded. Mental Status None recorded. Family History Relationship Description Onset Age of this Age Resolved Age Notes LastModified by Organization Details LastModified Time Father Hypertensive disorder [email or web address] Not available 2017 09:43:46 Mother Hypertensive disorder [email or web address] Not available 2017 09:43:46 Medical History Condition Response Pacemaker N Blood Clot N Cancer Y Diabetes N Heart Disease N Hypertension N Gynecological HistoryNo gynecological history recorded. Obstetrics History GPAL:G 0 P 0 0 0 0 Past Encounters Encounter ID Performer Location Encounter Start Date Encounter Closed Date Diagnosis/Indication Diagnosis SNOMED-CT Code Diagnosis ICD10 Code Diagnosis Note [id number] Darius NAVARRETE MD [facility] [address] [place] [address],[place] [address] [place] [phone] 09/10/2018 09:03:46 09/10/2018 11:00:57 Knee pain 48334898 M25.569 Osteoarthr itis of knee 708727478 M17.11 [id number] MD Дмитрий VALLADARES [address] [place] [address],[place] [address] [place] [phone] 09/17/2018 09:12:16 09/17/2018 10:02:49 Osteoarthritis of knee 003180703 M17.11 Knee pain 11072577 M25.5 69 Health Concerns Section Related Observation LastModified by Organization Detai ls LastModified Time None Recorded Concern Status LastModified by Organization Details LastModified Time None Recorded Advance Directives Directive None Recorded Payers Encounter Date Sequence Insurance Name Policy Number Policy Villasenor Covered Member ID Villasenor Member ID Guarantor Name 09/10/2018 1 [facility]: [facility] [place] [place] [id number] Kirstin Elizabeth Kyler [id number] Kirstin Chávez 09/17/2018 1 [facility]-ID: [facility] [place] [place] [id number] Kirstin M Kyler [id number] Kirstin Elizabeth Kyler Notes Date Note Type Note Provider Name and Address Organization Details Recorded Time 09/10/2018 text/html This is a 63-year-old who comes in today at the request of Dr. Trejo and Dr. Angel for consultation with complaints of right knee pain which began about 6 days ago. She is not aware of any specific injury or trauma. She gets periodic swelling and periodic pain in that knee. She status post a tibial tubercle osteotomy 2011 which was very helpful. Treatment has consisted of Tylenol and aspirin. Darius NAVARRETE MD [address] [facility] [address],[address] [place] [address], [phone], [facility] 09/10/2018 18:07:11 09/17/2018 text/html Follow-up for this 63-year-old being treated for right knee pain, chondromalacia patella status post intra-articular corticosteroid injection 1 week ago. Patient reporting feeling 90% better. Darius NAVARRETE MD [address] [facility] [address],[address], [place], [address], [facility] 09/17/2018 12:58:06 OBGyn Episode No OBEpisode recorded.
== END 2024-11-26 12:17 | disposition home or self-care (01) ==
LOC: HO.LAB 12:16
PROVIDERS: PCP Physician Assistant; Visit Provider Physician Assistant
DX: Z01.818 Encounter for other preprocedural examination (principal); E87.1 Hypo-osmolality and hyponatremia
CPT/HCPCS: 36415; 80048; 83735

== ENCOUNTER 2024-12-27 10:19 | Outpatient (AMB) | payer MEDICARE, SELFPAY ==
--- NOTE | 2024-12-27 10:22 | A.OFFVIS_ITS ---
Intake Visit Reasons: PO: Right TKA 10/06/24 Intake Note: Kirstin is a 69 year old female who presents today for a post operative appointment s/p Right Knee Arthroplasty 10/06/2024. Patient reports that she is dong well with no current concerns. Allergies Gadolinium-Containing Contrast Medi Allergy (Severe, Verified 10/21/24 13:27) allergice ibuprofen [From Advil] Adverse Reaction (Intermediate, Verified 10/21/24 13:27) sensitivity adhesive tape Adverse Reaction (Unknown, Verified 10/21/24 13:27) Sensitivity codeine Adverse Reaction (Verified 10/21/24 13:27) Unknown Sulfa (Sulfonamide Antibiotics) Adverse Reaction (Verified 10/21/24 13:27) Unknown MRI dye Adverse Reaction (Uncoded 10/06/24 09:51) warmth HPI HPI PO: Right TKA 10/06/24: Details: Kirstin is doing well. She has no complaints in his happy with the progress. [facility] Medical History (Updated 12/27/24 @ 10:24 by Sydnee Haile CMA) MDD (major depressive disorder), recurrent episode, mild Uterine cancer Arthritis Back pain GERD (gastroesophageal reflux disease) Sleep apnea Microscopic hematuria Hyperlipemia Refractive error Grand mal seizure Chronic headaches Hemorrhoids Depression Osteoarthritis of knee Surgical History (Updated 10/17/24 @ 00:02 by Neo Conte) Hx of shoulder surgery Hx of hand surgery History of tonsillectomy and adenoidectomy History of total abdominal hysterectomy H/O dilation and curettage H/O section H/O colonoscopy S/P arthroscopy of right knee Family History Father Glaucoma Maternal Aunt CAD (coronary artery disease) Paternal Grandmother CAD (coronary artery disease) Maternal Aunt Breast cancer Mother No problems noted. Maternal Grandmother Cancer of brain Social History Household Members: Spouse Housing: House Are you a primary patient care secretary to a significant other at home: No Do you presently have visiting nurse or other home services: No Alcohol intake: current Alcohol intake frequency: does not drink Alcohol type: wine Comment: pt rings appropriately Patient Tobacco Use Status: Former Tobacco user Tobacco use type: Cigarette e-Cigarette/Vaping Use: Never Used Second Hand Smoke Exposure: Yes service: No Current occupational status: retired Current occupational exposures/hazards: No Cognitive needs: No Hearing needs: No Vision needs: No Physical Exam Extrem Other: inc c/d/i 10-105 no gait antalgia Assessment & Plan Assessment & Plan (1) Status post total right knee replacement: Code(s): Z96.651 - Presence of right artificial knee joint Category: Surgical Plan: Status post total knee replacement on the right. She is doing very well. Preoperatively she had severe stiffness and loss of extension and flexion and is doing better than that now. There is a incomplete extension without lag that is expected. She is happy with the results. Follow up in 9 months. Coding Level of Care Code Global (98764) Diagnoses Status post total right knee replacement Z96.651
--- OUTSIDE RECORDS SUMMARY | 2024-12-27 11:33 | XMS_ITS | Data Portability ---
Author Organization [facility] Address [address] [place] [address] Care Team Providers Care Brakes Inspector Name Role Phone PHANI TREJO Primary Care Provider PHANI TREJO Referring Provider [phone] Assessment Encounter Date Assessment Date Assessment LastModified [...] months. She has a big trip to [facility] coming up and if she feels she [...] By Organization Details Last Modified Time 09/10/2018 [id number] knee arthritis: care instructions [email or web address] Not available 09/10/2018 18:07:08 knee pain or injury: care instructions [email or web address] Not available 09/10/2018 18:07:08 09/17/2018 [id number] knee arthritis: care instructions [email or web address] Not available 09/17/2018 12:58:03 knee pain or injury: care instructions [email or web address] Not available 09/17/2018 12:58:03 Reason for Referral None Reported. Results Created Date Observation Date Name Description Value Unit Range Abnormal Flag Note LastModifiedBy Organization Detail LastModifiedTime 09/10/20 18 knee RT No observ ation record ed. [email or web address] [address], [address] 09/11/2018 12:45:01 Result Notes None recorded. Problems Name Problem SNOMED Code Status Onset Date Resolution Date Notes Provider Name and Address Organization Details Recorded Time Malignant neoplastic disease 132021500 Active 2008 endometri al; Recorded 9 9:50AM by Claudia Van, Office Visit; Promoted; acuity set as * Not Available [facility] 7 22:47:11 Migraine 34055755 Active 2008 Recorded 9 9:50AM by Claudia Van, Office Visit; Promoted; acuity set as * Not Available [facility] 7 22:47:11 Epilepsy 43038148 Active 2008 Recorded 9 9:50AM by Claudia Van, Office Visit; Promoted; acuity set as * Not Available [facility] 7 22:47:11 Wears glasses 507723029 Active 2008 Recorded 9 9:50AM by Claudia Van, Office Visit; Promoted; acuity set as * Not Available [facility] 7 22:47:11 Does use contact lenses 883307550 Active 2008 Recorded 9 9:50AM by Claudia Van, Office Visit; Promoted; acuity set as * Not Available [facility] 7 22:47:11 Absent tonsils Active 2008 Recorded 9 9:50AM by Claudia Van, Office Visit; Promoted; acuity set as * Not Available [facility] 7 22:47:11 History of appendicit is 494523218 Active 2008 Recorded 9 9:50AM by Claudia Van, Office Visit; Promoted; acuity set as * Not Available [facility] 7 22:47:55 Past history of section 130971744 Active 2008 Recorded 9 9:50AM by Claudia Van, Office Visit; Promoted; acuity set as * Not Available [facility] 7 22:47:55 History of total hysterecto my 989222393 Active 2008 Recorded 9 9:50AM by Claudia Van, Office Visit; Promoted; acuity set as * Not Available [facility] 7 22:47:55 Knee pain Active 2017 Darius NAVARRETE MD [address], [place], [address] , [facility] 8 09:56:21 Osteoarthr itis of knee 872414840 Active 2017 Darius NAVARRETE MD [address] [place] [address],[address], [place], [address] , [facility] 8 09:56:54 Notes:11/15/2008: Wrist/Hand surgery (unspecified) ; OnsetDate: 11/15/2008; Recorded 11/15/2008 9:50AM by Claudia Van, Office Visit; Promoted; acuity set as * Problem Notes None recorded. Procedures Surgical History Date Name Laterality Status Provider Name and Address Organization Details Recorded Time 09/10/20 18 LDD Knee Right completed L PRINCESS NAVARRETE MD [address], [place], [address], [facility] 09/10/2018 18:06:44 Caesarean Section completed [facility] 09/10/2018 09:44:25 Unlisted procedure breast completed [facility] 09/10/2018 09:44:41 Hysterectomy completed [facility] 09/10/2018 09:44:46 Tibial arthroscopy/surg jaya completed [facility] 09/10/2018 09:45:30 Shoulder Surgery completed [facility] 09/10/2018 09:46:27 Imaging Results Imaging Date Name Status LastModified by Organiz ation Details LastModified Time 09/10/2018 knee RT completed [email or web address] [employer] [address], [address] 09/11/2018 12:45:01 Procedure Notes None recorded. Medical Equipment None Reported. Allergies Allergen ID Allergen Name Allergen Category Reaction Reaction Severity Criticality Documentation Date Start Date Code Code System Note Provider Name and Address Organization Details Recorded Time 003829 adhesive tape environme nt,medica tion Not available Not available Not available 12/30/20162008 38311 UNK Comme nt: Recor ded 11/15 9:50A M by Claudia Lynn es, Offic e Visit ; [employer] [place]; Tye siegel ce:*; Not Available [facility] 7 20:16:30 223559 Advil medicatio n Not available Not available Not available 12/30/20162008 48678 0 RxNorm Comme nt: Recor ded 11/15 9:50A M by Claudia Stapl es, Offic e Visit ; [employer] [place]; Signi fican ce:*; Not Available [facility] 7 20:16:30 288473 Bactrim medicatio n Not available Not available Not available 12/30/20162008 11093 9 RxNorm Comme nt: Recor ded 11/15 9:50A M by Claudia Stapl es, Offic e Visit ; [employer] [place]; Signi fican ce:*; Not Available [facility] 7 20:16:30 676573 adhesive tape environme nt,medica tion Not available Not available Not available 10/03/20172008 82030 UNK Comme nt: Recor ded 11/15 9:50A M by Claudia Stapl es, Offic e Visit [employer] Signi fican ce: *; Not Available [facility] 7 01:39:27 Medications Name Sig Start Date [...] Not Available Vitals Date Recorded Body height Body mass index (BMI) Body weight Body temperature Provider Name and Address Organization Details Last Updated DateTime 09/10/2018 165.1 cm 27.5 kg/m2 15295.74 g 97.2 [degF] Rochelle Lay [facility] 09/10/2018 09:35:26 Date Recorded Pain severity - 0-10 verbal numeric rating [Score] - Reported Provider Name and Address Organization Details Last Updated DateTime 09/10/2018 9 Not Available [facility] 8 05:59:43 Date Recorded Body height Body mass index (BMI) Body weight Body temperature Provider Name and Address Organization Details Last Updated DateTime 09/17/2018 165.1 cm 27.5 kg/m2 37207.74 g 96.7 [degF] Darius NAVARRETE MD [address] [place] [address],[facility] [address], [place], [address] , [facility] 09/17/2018 09:18:36 Date Recorded Pain severity - 0-10 verbal numeric rating [Score] - Reported Provider Name and Address Organization Details Last Updated DateTime 09/17/2018 7 Not Available [facility] 8 05:36:26 Social History None recorded. Functional Status None recorded. Mental Status None recorded. Family History Relationship Description Onset Age of this Age Resolved Age Notes LastModified by Organization Details LastModified Time Father Hypertensive disorder [email or web address] Not available 2017 09:43:46 Mother Hypertensive disorder [email or web address] Not available 2017 09:43:46 Medical History Condition Response Diabetes N Pacemaker N Heart Disease N Cancer Y Hypertension N Blood Clot N Gynecological HistoryNo gynecological history recorded. Obstetrics History GPAL:G 0 P 0 0 0 0 Past Encounters Encounter ID Performer Location Encounter Start Date Encounter Closed Date Diagnosis/Indication Diagnosis SNOMED-CT Code Diagnosis ICD10 Code Diagnosis Note [id number] Darius NAVARRETE MD [address] [address] 09/10/2018 09:03:46 09/10/2018 11:00:57 Knee pain 42357124 M25.569 Osteoarthr itis of knee 822458341 M17.11 [id number] Darius NAVARRETE MD [address] [address] 09/17/2018 09:12:16 09/17/2018 10:02:49 Osteoarthritis of knee 958176645 M17.11 Knee pain 81018486 M25.5 69 Health Concerns Section Related Observation LastModified by Organization Detai ls LastModified Time None Recorded Concern Status LastModified by Organization Details LastModified Time None Recorded Advance Directives Directive None Recorded Payers Encounter Date Sequence Insurance Name Policy Number Policy Villasenor Covered Member ID Villasenor Member ID Guarantor Name 09/10/2018 1 [facility] [id number] Kirstin Chávez [id number] Kirstin Chávez 09/17/2018 1 [facility] [id number] Kirstin Chávez [id number] Kirstin Chávez Notes Date Note Type Note Provider Name [...] Tylenol and aspirin. Darius NAVARRETE MD [address], [place], [address], [facility] 09/10/2018 18:07:11 09/17/2018 text/html Follow-up for this 63-year-old being treated for right knee pain, chondromalacia patella status post intra-articular corticosteroid injection 1 week ago. Patient reporting feeling 90% better. Darius NAVARRETE MD [address], [place], [address], [facility] 09/17/2018 12:58:06 OBGyn Episode No OBEpisode recorded.
== END 2024-12-27 10:42 | disposition home or self-care (01) ==
PROVIDERS: PCP Physician Assistant; Visit Provider Orthopaedic Surgery
DX: Z96.651 Presence of right artificial knee joint (principal)
CPT/HCPCS: 99024

== ENCOUNTER → 2024-12-27 10:19 | Outpatient (BNVA) | payer MEDICARE, SELFPAY | PROVIDERS: PCP Physician Assistant; Visit Provider Orthopaedic Surgery | DX: Z96.651 Presence of right artificial knee joint (principal) | CPT/HCPCS: 99212 ==

== ENCOUNTER 2025-02-08 11:00 | Outpatient (RCR) | payer MEDICARE, SELFPAY ==
--- NOTE | 2024-11-02 12:38 | MHC.PT.EP ---
[facility] Office [place] [facility] [place] [facility] [address] Marcella Kunz [address] [phone] F: [phone] F: [phone] F: [phone] F: [phone] Physical Therapy Plan of Care Date of Evaluation: 11/02/24 Date of Surgery: 10/06/24 Diagnosis: S/P RIGHT TKR (NE) Assessment: UPON EXAM MYRA DEMONSTRATES THE EXPECTED IMPAIRMENTS OF DECREASED ROM, DECREASED STRENGTH, ALTERED POSTURE AND POSITIONING,ALTERED GAIT AND BALANCE, AND INCREASED PAIN AND EDEMA. FUNCTIONAL LIMITATIONS INCLUDE DECREASED ABILITY TO PERFORM HOMEMAKING AND SELF-CARE TASKS, DECREASED ABILITY TO PERFORM WALKING, RUNNING, JUMPING AND SQUATTING, INABILITY TO DRIVE AND PERFORM WORK TASKS, DECREASED PARTICIPATION IN COMMUNITY AND RECREATIONAL ACTIVITIES AND DISRUPTED SLEEP. THE Pt IS A GOOD CANDIDATE FOR SKILLED PT DUE TO AGE, POTENTIAL REMEDIATION OF IMPAIRMENTS, TYPICAL DISEASE/CONDITION PROGRESSION AND PROGNOSIS, COMORBIDITIES, AND MOTIVATION. PT WOULD BENEFIT FROM TAILORED PROGRAM OF THERAPEUTIC ACTIVITIES, FUNCTIONAL TRAINING, GAIT TRAINING, POSTURAL EDUCATION, NEUROMUSCULAR RE-EDUCATION, AND MODALITIES NEEDED. Frequency and Duration: The patient will be seen 1-2 X 8 WEEKS Short Term Goals: INITIATE HEP AND PROMOTE SELF MANAGEMENT OF SYMPTOMS Child Study Team Director Goals: TO DEMONSTRATE FULL KNEE ROM, EQUAL NERI TO DEMONSTRATE FULL LE STRENGTH, EQUAL NERI TOSTAIRS WITH RECIPROCAL GAIT WITHOUT PAIN GREATER THAN 2/10 TO AMBULATE AD MAGDALENA ON LEVEL AND UNEVEN SURFACES FOR FITNESS WITHOUT PAIN GREATER THAN 2/10 TO PERFORM FULL FUNCTIONAL SQUAT WITHOUT SUBSTITUTION Treatment Plan: Modalities to reduce pain, spasms and effusion. Manual therapy to restore motion and function. Therapeutic exercise to improve strength and flexibility. Neuromuscular re-education for posture and balance. Therapeutic activities to return to functional activities of daily living. Electronically signed by: DARSHANA AGOSTO PT DPT Please sign and return to therapist. Thank you for your referral.
== END 2025-02-18 11:27 | disposition home or self-care (01) ==
LOC: HO.PT 11:00
PROVIDERS: PCP Physician Assistant; Visit Provider Physician Assistant
DX: Z47.1 Aftercare following joint replacement surgery (principal); Z96.651 Presence of right artificial knee joint
CPT/HCPCS: 97110; 97140; 97161; 97530

== ENCOUNTER 2025-04-11 13:12 | Outpatient (AMB) | payer MEDICARE, SELFPAY ==
--- NOTE | 2025-04-11 13:15 | A.OFFPC_ITS ---
Vital Signs 3 04/11/25 13:16 Height 5 ft 5 in Weight 168 lb BMI 28.0 BP 122/94 H Blood Pressure Location Lt brachial Position Sitting Pulse 74 Pulse Source Pulse Oximeter Temp 97.3 F Temp Source Temporal Artery Scan Pulse Oximetry (%) 98 Oxygen Delivery Method Room Air Intake Visit Reasons: PE - see comments Print Binding And Finishing Worker Required: No Accompanied by: Self / Same As Patient Allergies Gadolinium-Containing Contrast Medi Allergy (Severe, Verified 04/11/25 13:34) allergice ibuprofen [From Advil] Adverse Reaction (Intermediate, Verified 04/11/25 13:34) sensitivity adhesive tape Adverse Reaction (Unknown, Verified 04/11/25 13:34) Sensitivity codeine Adverse Reaction (Verified 04/11/25 13:34) Unknown Sulfa (Sulfonamide Antibiotics) Adverse Reaction (Verified 04/11/25 13:34) Unknown MRI dye Adverse Reaction (Uncoded 04/11/25 13:34) warmth Medication List - Last Reconciled 04/11/25 by Rodrigo Kelly PA-C acetaminophen 650 mg (2 x 325 mg) PO Q6H PRN 30 days cholecalciferol (vitamin D3) 25 mcg PO DAILY docusate sodium (Colace) 100 mg PO BEDTIME fluoxetine 60 mg (3 x 20 mg) PO DAILY 90 days lacosamide (Vimpat) 100 mg PO BID 90 days walker Folding front wheeled walker Tobacco use date assessed: 04/11/25 Fall risk assessment: 2 + Falls in past year Last assessed Fall Risk: 04/11/25 Dental Screening Dental Screen Date: 04/11/25 Did you have a dental visit in the last 12 months?: Yes Did you have a dental problem in the last 6 months where you did not have access to dental care?: No Was dental information given to patient?: Patient has dentist HPI PE - see comments 2 HPI0 Details Patient is a 70-year-old female here today for an annual physical Patient's past medical history significant for migraine disorder, seizure disorder, h/h/o Uterine cancer, vitamin-D deficiency and anxiety. Concerns--> SHE HAS NOTED A PEA SIZE LUMP OVER HER RIGHT BREAST. SHE IS CONCERNED ABOUT THIS SHE HAS A HISTORY OF ABNORMAL MAMMOGRAMS. She has also been noting feeling very dizzy when lying down to sleep over the last week. She has not tried any [id number] medications for her dizziness. Also she has been having right shoulder pain and decreased range of motion over the last several weeks. She can not recall a particular recent injury though does report having a surgery on her right shoulder in the past. She is interested in further treatment and evaluation of her left shoulder CHRONIC MEDICAL CONDITION--> .. Major depressive disorder: Has been on fluoxetine 60 mg for over 25 years. She reports her mental health has been very stable. .. 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 Vladimir Holt)- [place] ( [place]). Okay for PCP to follow med and prescribe her seizure medication and continue to follow. She has not had a breakthrough seizure since childhood. . Obstructive sleep apnea: Uses CPAP on a daily basis with good effect. Vaccine: utd with COVID, tetanus, pneumonia, RSV, flu . MAmmo: Has had mammo since age 21, has had abnormal urmila in the past. Patient is due for repeat mammogram .. colon cancer screening: done in 2018 while in [place]-normal repeat 10 years [facility] Medical History MDD (major depressive disorder), recurrent episode, mild Uterine cancer Arthritis Back pain GERD (gastroesophageal reflux disease) Sleep apnea Microscopic hematuria Hyperlipemia Refractive error Grand mal seizure Chronic headaches Hemorrhoids Depression Osteoarthritis of knee Surgical History Hx of shoulder surgery Hx of hand surgery History of tonsillectomy and adenoidectomy History of total abdominal hysterectomy H/O dilation and curettage H/O section H/O colonoscopy S/P arthroscopy of right knee Family History Father Glaucoma Maternal Aunt CAD (coronary artery disease) Paternal Grandmother CAD (coronary artery disease) Maternal Aunt Breast cancer Mother No problems noted. Maternal Grandmother Cancer of brain Social History Household Members: Spouse Housing: House Are you a primary post acute care nurse practitioner to a significant other at home: No Do you presently have visiting nurse or other home services: No Alcohol intake: current Alcohol intake frequency: does not drink Alcohol type: wine Comment: pt rings appropriately Patient Tobacco Use Status: Former Tobacco user Tobacco use type: Cigarette e-Cigarette/Vaping Use: Never Used Second Hand Smoke Exposure: Yes service: No Current occupational status: retired Current occupational exposures/hazards: No Cognitive needs: No Hearing needs: No Vision needs: No Questionnaire PHQ-9 Over the last 2 weeks, how often have you been bothered by any of the following problems? 1. Little interest or pleasure in doing things: not at all 2. Feeling down, depressed, or hopeless: not at all 3. Trouble falling or staying asleep, or sleeping too much: not at all 4. Feeling tired or having little energy: not at all 5. Poor appetite or overeating: not at all 6. Feeling bad about yourself - or that you are a failure or have let yourself or your family down: not at all 7. Trouble concentrating on things, such as reading the newspaper or watching television: not at all 8. Moving or speaking so slowly that other people could have noticed. Or the opposite - being so fidgety or restless that you have been moving around a lot more than usual: not at all 9. Thoughts that you would be better off or of hurting yourself in some way: not at all Total score: 0 Depression Screening Interpretation: Negative Depression Screening Done: Yes 89784 - PHQ-9 Billing: Yes Source: Developed by Drs. Leo Liu, Marilynn Reilly, Gerry Dos Santos and colleagues, with an educational skyla from [employer]. Thrive Questionnaire Date Thrive assessed: 04/11/25 I am a: Patient What is your living situation today?: I have a steady place to live Within the past 12 months, did the food you bought not last and you didn't have the money to get more?: Never true Within the past 12 months, did you worry whether your food would run out before you got money to buy more?: Never true Do you have trouble paying for medicines?: No Do you have trouble getting transportation to medical appointments?: No Do you have trouble paying your heating and electricity bill?: No Do you have trouble taking care of your child, family member or friend?: No Do you have trouble with day-to-day activities such as bathing, preparing meals, shopping, managing finances, etc.?: No Are you currently unemployed and looking for a job?: No Are you interested in more education?: No Please select the resources that you would like help with: None Currently or been in a relationship where the following occur: No concerns reported THRIVE Score: 0 AUDIT C Alcohol Use Questionnaire (AUDIT-C) 1. How often do you have a drink containing alcohol?: Monthly or less 2. How many drinks containing alcohol do you have on a typical day when you are drinking?: 1 or 2 3. How often do you have six or more drinks on one occasion?: Never Total Score: 1 Score Reviewed/Action Taken: Yes POLY-7 AMB Questionnaire POLY-7 Date POLY - 7 assessed: 04/11/25 Feeling nervous, anxious, or on edge: 0 = Not at all Not being able to stop or control worryin = Not at all Worrying too much about different things: 0 = Not at all Trouble relaxin = Not at all Being so restless that it is hard to sit still: 0 = Not at all Becoming easily annoyed or irritable: 0 = Not at all Feeling afraid as if something awful might happen: 0 = Not at all Total POLY-7 score (0-4 normal; 5-9 mild; 10-14 moderate; 15-21 severe): 0 Source: Developed by Drs. Leo Liu, Marilynn Reilly, Gerry Dos Santos and colleagues, with an educational skyla from [employer]. POLY-7 Assessment Billing POLY-7 Assessment Tool: POLY-7 Assessment 41960 Review of Systems Const Denies body aches, Denies chills, Denies excessive sweating, Denies fatigue, Denies fever(s) and Denies headache(s) Eyes Denies blurry vision ENT Denies dysphagia, Denies vertigo, Denies dizziness, Denies headache(s), Denies hearing loss and Denies tinnitus Card Denies chest pain, Denies chest pain with activity, Denies syncope, Denies irregular heart rhythm and Denies dyspnea Resp Denies chest congestion, Denies cough, Denies hemoptysis, Denies dyspnea and Denies wheezing GI Denies abdominal pain, Denies melena, Denies hematochezia, Denies coffee ground emesis, Denies dysphagia, Denies diarrhea, Denies nausea and Denies vomiting Denies urinary frequency, Denies dysuria, Denies urinary hesitancy and Denies urinary urgency Musc Denies arthralgias, Denies limited range of motion, Denies muscle cramps and Denies muscle weakness Skin/Breast Denies rash and Denies skin ulcer Neuro Denies Abnormal speech present, Denies confusion, Denies vertigo, Denies dizziness, Denies syncope, Denies headache(s), Denies memory loss and Denies seizure-like activity Psych Denies anxiety, Denies confusion, Denies depression, Denies memory loss, Denies panic attacks and Denies paranoia Endo Denies excessive sweating, Denies fatigue, Denies flushing, Denies polydipsia and Denies polyuria Aller/Immun Denies wheezing Physical exam (Primary Care) Vital Signs: Last Vital Signs Temp 97.3 F 04/11/25 13:16 Pulse 74 04/11/25 13:16 BP 122/94 H 04/11/25 13:16 Pulse Ox 98 04/11/25 13:16 Oxygen Delivery Method Room Air 04/11/25 13:16 BMI result Body Mass Index 28.0 Tobacco/Smoking Status: Tobacco use Status Tobacco use date assessed 04/11/25 04/11/25 13:21 Patient Tobacco Use Status Former Tobacco user 04/11/25 13:21 Tobacco use type Cigarette 04/11/25 13:21 e-Cigarette/Vaping Use Never Used 04/11/25 13:21 PHQ-9: PHQ-9 Score PHQ-9: Total score 0 04/11/25 13:36 Depression Screening Interpretation: Negative Thrive Assessment: Date of Thrive Assessment Date Thrive assessed 04/11/25 04/11/25 13:21 Currently or been in a relationship where the following occur: No concerns reported Const General: cooperative, comfortable, no acute distress, alert and awake; No confusion Orientation/consciousness: oriented to person, oriented to place, patient oriented x3 and No confusion HENMT Head: Yes normocephalic Ears: external ears normal and TM's normal bilaterally Face and sinus: No sinus tenderness Mouth: Normal oral and palatal mucosa present and tongue normal Teeth and gingiva: dentition normal and gingiva normal Throat: Yes posterior oropharynx normal, Yes tonsils normal and Yes uvula midline Eyes Conjunctivae: conjunctivae normal Sclerae: sclerae normal Pupils: Equal, round and reactive pupils present EOM: EOMs intact bilaterally Direct Ophthalmoscopy: No no photophobia Neck Neck: Yes no lymphadenopathy, No tender and Yes no JVD Thyroid: Thyroid normal Carotids: no bruits Chest Chest palpation & inspection: no tenderness Chest/axillae images: 2 1. RIGHT BREAST PEA SIZE SOFT MOBILE MASS AT 02:00 FROM THE AREOLA Resp Effort & Inspection: normal respiratory effort, no audible wheezes, not labored and no stridor Auscultation: no crackles, no rales, no rhonchi and no wheezes Cardio Jugular venous distension: no JVD Rate: regular rate, not bradycardic and not tachycardic Rhythm: regular rhythm Bruits: no carotid bruits Peripheral pulses: Peripheral pulses 2+ throughout GI Inspection: Yes normal to inspection, No abdominal wall ecchymosis and No visible herniation Palpation (GI): Soft to palpation, nontender, no guarding, not rigid and No hepatosplenomegaly present Auscultation: normoactive bowel sounds General: Yes no CVA tenderness Back/Spine/Pelvis Back: no CVA tenderness and No back tenderness Cervical Spine: cervical ROM normal Thoracic/Lumbar Spine: thoracic and lumbar spine normal to inspection, straight leg raise negative bilaterally, No thoraco-lumbar ROM limited and No lumbar spinal tenderness Skin Lesions: no lesions Rashes: no rashes Wounds: no wounds Neuro General: oriented to person, oriented to place, patient oriented x3, CN's II-XI intact bilaterally and No confusion Cranial nerves: Yes Equal, round and reactive pupils present and Yes Normal accommodation reflex present Cognition (Neuro): normal cognition Speech: No Abnormal speech present Gait exam (Neuro): Normal gait present Motor exam (neuro): 5/5 motor strength present throughout Extrem Right upper extremity: full ROM; no cyanosis Left upper extremity: full ROM; no cyanosis Right lower extremity: no edema Left lower extremity: no edema Psych Appearance: grossly normal Mental Status: mental status grossly normal Affect: normal affect Attitude: cooperative Thought process: Normal thought process present Coding Level of Care Code Est Pt Prev Care >65y(85807) Diagnoses Annual physical exam Z00.00 H/O basal cell carcinoma excision Z98.890; Z85.828 Right shoulder tendonitis M77.8 Benign paroxysmal positional vertigo due to bilateral vestibular disorder H81.13 Laterality: bilateral Seizure disorder G40.909 LONNIE (obstructive sleep apnea) G47.33 Nontraumatic incomplete tear of right rotator cuff M75.111 Rotator cuff tear extent: incomplete Rotator cuff tear trauma status: nontraumatic Mass of upper inner quadrant of right breast N63.12 Breast mass location: upper inner quadrant Additional Codes POLY-7 Assessment Billing - POLY-7 Assessment Tool: POLY-7 Assessment 39495 ([id number]) PHQ-9 - 39043 - PHQ-9 Billing: Yes ([id number]) Assessment & Plan Assessment & Plan (1) Annual physical exam: Code(s): Z00.00 - Encounter for general adult medical examination without abnormal findings Category: Medical Plan: As per HPI (2) H/O basal cell carcinoma excision: Code(s): Z98.890 - Other specified postprocedural states; Z85.828 - Personal history of other malignant neoplasm of skin Category: Surgical Plan: Patient has a history of basal cell carcinoma and has had some lesions over face she would like Dermatology evaluation for. (3) Right shoulder tendonitis: Code(s): M77.8 - Other enthesopathies, not elsewhere classified Category: Medical Plan: Patient's signs symptoms are concerning for right shoulder tendon issue, she can not recall any recent trauma to her right shoulder though due to her her decreased range of motion and continued pain will try for MRI to evaluate for rotator cuff tear (4) BPPV (benign paroxysmal positional vertigo): Code(s): H81.10 - Benign paroxysmal vertigo, unspecified ear Category: Medical Qualifiers: Laterality: bilateral Qualified Code(s): H81.13 - Benign paroxysmal vertigo, bilateral Plan: Patient has positive signs and symptoms of benign. Six small positional vertigo. She will try Yelitza maneuver his at home and if she fails will consider formal vestibular therapy. (5) Seizure disorder: Code(s): G40.909 - Epilepsy, unspecified, not intractable, without status epilepticus Category: Medical Plan: Her seizure disorder has been well controlled with her seizure medication. Has not had a seizure in several years. (6) LONNIE (obstructive sleep apnea): Code(s): G47.33 - Obstructive sleep apnea (adult) (pediatric) Category: Medical Plan: Continues to use CPAP machine on a nightly basis with good effect (7) Right rotator cuff tear: Code(s): M75.101 - Unspecified rotator cuff tear or rupture of right shoulder, not specified as traumatic Category: Medical Qualifiers: Rotator cuff tear extent: incomplete Rotator cuff tear trauma status: n ontraumatic Qualified Code(s): M75.111 - Incomplete rotator cuff tear or rupture of right shoulder, not specified as traumatic Plan: As above (8) Breast mass, right: Code(s): N63.10 - Unspecified lump in the right breast, unspecified quadrant Category: Medical Qualifiers: Breast mass location: upper inner quadrant Qualified Code(s): N63.12 - Unspecified lump in the right breast, upper inner quadrant Plan: Noted a right breast mass at 02:00 from the areola. Patient has a history of calcifications in abnormal mammograms. No family history of breast cancer. Will send for limited breast ultrasound and diagnostic mammogram for evaluation Orders: Orders 2 MR shoulder RT wo con 04/11/25 M75.111 - Incomplete rotator cuff tear or rupture of right shoulder, not specified as traumatic Lipid Panel 04/11/25 E78.9 - Disorder of lipoprotein metabolism, unspecified Comprehensive [place]. Panel Fast 04/11/25 E78.9 - Disorder of lipoprotein metabolism, unspecified US breast RT limited 04/11/25 N63.12 - Unspecified lump in the right breast, upper inner quadrant PT Evaluation and Treatment 04/11/25 M51.9 - Unspecified thoracic, thoracolumbar and lumbosacral intervertebral disc disorder, M77.8 - Other enthesopathies, not elsewhere classified Complete Blood Count no Diff 04/11/25 E78.9 - Disorder of lipoprotein metabolism, unspecified MM diagnostic mammo BI 04/11/25 N63.12 - Unspecified lump in the right breast, upper inner quadrant Referrals 2 Dermatology Referral Z85.828 - Personal history of other malignant neoplasm of skin, Z98.890 - Other specified postprocedural states
[2025-04-11 13:16] VITALS: BP 122/94; PULSE 74; TEMP 36.3; O2SAT 98; BMI 28.0
--- OUTSIDE RECORDS SUMMARY | 2025-04-11 14:55 | XMS_ITS | Data Portability ---
Author Organization [facility], [place] [facility] Address [address] [address] Care Team Providers Care Extracting Machine Operator Name Role Phone PHANI TREJO Primary Care Provider PHANI TREJO Referring Provider Assessment Encounter Date [...] months. She has a big trip to [facility] coming up and if she feels she [...] By Organization Details Last Modified Time 09/10/2018 [id number] knee arthritis: care instructions [email or web address] Not available 09/10/2018 18:07:08 knee pain or injury: care instructions [email or web address] Not available 09/10/2018 18:07:08 09/17/2018 [id number] knee arthritis: care instructions [email or web address] Not available 09/17/2018 12:58:03 knee pain or injury: care instructions [email or web address] Not available 09/17/2018 12:58:03 Reason for Referral None Reported. Results Created Date Observation Date Name Description Value Unit Range Abnormal Flag Note LastModifiedBy Organization Detail LastModifiedTime 09/10/20 18 knee RT No observ ation record ed. [email or web address] [address], [address] 09/11/2018 12:45:01 Result Notes None recorded. Problems Name Problem SNOMED Code Status Onset Date Resolution Date Notes Provider Name and Address Organization Details Recorded Time Malignant neoplastic disease 528525052 Active 2008 endometri al; Recorded 9 9:50AM by Claudia Van, Office Visit; Promoted; acuity set as * Not Available [facility] 7 22:47:11 Migraine 08844490 Active 2008 Recorded 9 9:50AM by Claudia Van, Office Visit; Promoted; acuity set as * Not Available [facility] 7 22:47:11 Epilepsy 73343392 Active 2008 Recorded 9 9:50AM by Claudia Van, Office Visit; Promoted; acuity set as * Not Available [facility] 7 22:47:11 Wears glasses 555311113 Active 2008 Recorded 9 9:50AM by Claudia Van, Office Visit; Promoted; acuity set as * Not Available [facility] 7 22:47:11 Does use contact lenses 875011773 Active 2008 Recorded 9 9:50AM by Claudia Van, Office Visit; Promoted; acuity set as * Not Available [facility] 7 22:47:11 Absent tonsils Active 2008 Recorded 9 9:50AM by Claudia Van, Office Visit; Promoted; acuity set as * Not Available [facility] 7 22:47:11 History of appendicit is 620503209 Active 2008 Recorded 9 9:50AM by Claudia Van, Office Visit; Promoted; acuity set as * Not Available [facility] 7 22:47:55 Past history of section 740121579 Active 2008 Recorded 9 9:50AM by lCaudia Van, Office Visit; Promoted; acuity set as * Not Available [facility] 7 22:47:55 History of total hysterecto my 613407128 Active 2008 Recorded 9 9:50AM by Claudia Van, Office Visit; Promoted; acuity set as * Not Available [facility] 7 22:47:55 Knee pain Active 2017 Darius NAVARRETE MD [address] [facility],[address], [place], [address] , [facility] 8 09:56:21 Osteoarthr itis of knee 972195285 Active 2017 Darius NAVARRETE MD [address] [place] [address],[address], [place], [address] , [facility] 8 09:56:54 Notes:11/15/2008: Wrist/Hand surgery (unspecified) ; OnsetDate: 11/15/2008; Recorded 11/15/2008 9:50AM by Claudia Van, Office Visit; Promoted; acuity set as * Problem Notes None recorded. Procedures Surgical History Date Name Laterality Status Provider Name and Address Organization Details Recorded Time 09/10/20 18 LDD Knee Right completed L PRINCESS NAVARRETE MD [address] [facility] [facility],[address], [place], [address], [facility] 09/10/2018 18:06:44 Caesarean Section completed [facility] 09/10/2018 09:44:25 Unlisted procedure breast completed [facility] 09/10/2018 09:44:41 Hysterectomy completed [facility] 09/10/2018 09:44:46 Tibial arthroscopy/surg jaya completed [facility] 09/10/2018 09:45:30 Shoulder Surgery completed [facility] 09/10/2018 09:46:27 Imaging Results None recorded. Procedure Notes None recorded. Medical Equipment None Reported. Allergies Allergen ID Allergen Name Allergen Category Reaction Reaction Severity Criticality Documentation Date Start Date Code Code System Note Provider Name and Address Organization Details Recorded Time 942085 adhesive tape environme nt,medica tion Not available Not available Not available 12/30/20162008 67121 UNK Comme nt: Recor ded 11/15 9:50A M by Claudia Lynn es, Offic e Visit ; [employer] [place]; Signi fican ce:*; Not Available [facility] 7 20:16:30 727867 Advil medicatio n Not available Not available Not available 12/30/20162008 32718 0 RxNorm Comme nt: Recor ded 11/15 9:50A M by Claudia Lynn es, Offic e Visit ; [employer] [place]; Signi fican ce:*; Not Available [facility] 7 20:16:30 551589 Bactrim medicatio n Not available Not available Not available 12/30/20162008 46093 9 RxNorm Comme nt: Recor ded 11/15 9:50A M by Claudia Lynn es, Offic e Visit ; [employer] [place]; Tye siegel ce:*; Not Available [facility] 7 20:16:30 177459 adhesive tape environme nt,medica tion Not available Not available Not available 10/03/20172008 66693 UNK Comme nt: Recor ded 11/15 9:50A M by Claudia east, Offic e Visit Prom oted Tye siegel ce: *; Not Available [facility] 01:39:27 Medications Name Sig Start Date Stop [...] Updated DateTime 09/10/2018 165.1 cm 27.5 kg/m2 08668.74 g 97.2 [degF] Rochelle Lay [facility] 09/10/2018 09:35:26 Date Recorded Body height Body mass index (BMI) Body weight Body temperature Provider Name and Address Organization Details Last Updated DateTime 09/17/2018 165.1 cm 27.5 kg/m2 50932.74 g 96.7 [degF] Darius NAVARRETE MD [address] [place] [address],[facility] [address], [place], [address] [facility] 09/17/2018 09:18:36 Social History None recorded. Functional Status None recorded. Mental Status None recorded. Family History Relationship Description Onset Age of this Age Resolved Age Notes LastModified by Organization Details LastModified Time Father Hypertensive disorder [email or web address] Not available 2017 09:43:46 Mother Hypertensive disorder [email or web address] Not available 2017 09:43:46 Medical History Condition Response Pacemaker N Diabetes N Blood Clot N Cancer Y Heart Disease N Hypertension N Gynecological HistoryNo gynecological history recorded. Obstetrics History GPAL:G 0 P 0 0 0 0 Past Encounters Encounter ID Performer Location Encounter Start Date Encounter Closed Date Diagnosis/Indication Diagnosis SNOMED-CT Code Diagnosis ICD10 Code Diagnosis Note [id number] Darius NAVARRETE MD [place] [address] [facility] [place] [address] 09/10/2018 09:03:46 09/10/2018 11:00:57 Knee pain 45389695 M25.569 Osteoarthr itis of knee 534219209 M17.11 [id number] Darius NAVARRETE MD [place] [address] [facility] [place] [address] 09/17/2018 09:12:16 09/17/2018 10:02:49 Osteoarthritis of knee 625483720 M17.11 Knee pain 35011140 M25.5 69 Health Concerns Section Related Observation LastModified by Organization Detai ls LastModified Time None Recorded Concern Status LastModified by Organization Details LastModified Time None Recorded Advance Directives Directive None Recorded Payers Insurance Date Sequence Insurance Name Policy Number Policy Villasenor Covered Member ID Villasenor Member ID Guarantor Name 09/28/2018 1 [facility]: [facility] [id number] Kirstin Chávez [id number] Kirstin Chávez Notes Date Note Type Note [...] Tylenol and aspirin. 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 Patient reporting feeling 90% better. L PRINCESS NAVARRETE MD [address] [facility] [facility],[address], [place], [address], [place] [facility] 09/17/2018 12:58:06 OBGyn Episode No OBEpisode recorded.
== END 2025-04-11 14:07 | disposition home or self-care (01) ==
LOC: HO.HMCH 13:13
PROVIDERS: PCP Physician Assistant; Visit Provider Physician Assistant
DX: Z00.00 Encounter for general adult medical examination without abnormal findings (principal); G40.909 Epilepsy, unspecified, not intractable, without status epilepticus; M77.8 Other enthesopathies, not elsewhere classified; Z98.890 Other specified postprocedural states; Z85.828 Personal history of other malignant neoplasm of skin; H81.13 Benign paroxysmal vertigo, bilateral; G47.33 Obstructive sleep apnea (adult) (pediatric); M75.111 Incomplete rotator cuff tear or rupture of right shoulder, not specified as traumatic; N63.12 Unspecified lump in the right breast, upper inner quadrant

== ENCOUNTER → 2025-04-11 13:12 | Outpatient (BNVA) | payer MEDICARE, SELFPAY | PROVIDERS: PCP Physician Assistant; Visit Provider Physician Assistant | DX: Z00.00 Encounter for general adult medical examination without abnormal findings (principal); M77.8 Other enthesopathies, not elsewhere classified; H81.13 Benign paroxysmal vertigo, bilateral; G40.909 Epilepsy, unspecified, not intractable, without status epilepticus; G47.33 Obstructive sleep apnea (adult) (pediatric); M75.111 Incomplete rotator cuff tear or rupture of right shoulder, not specified as traumatic; N63.12 Unspecified lump in the right breast, upper inner quadrant; Z85.828 Personal history of other malignant neoplasm of skin; Z99.89 Dependence on other enabling machines and devices; Z13.31 Encounter for screening for depression; Z13.30 Encounter for screening examination for mental health and behavioral disorders, unspecified | CPT/HCPCS: 96127; 99397 ==

== ENCOUNTER 2025-04-26 08:25 | Outpatient (REF) | payer MEDICARE, SELFPAY ==
--- NOTE | ~2025-04-26 | MR_ITS ---
EXAMINATION: MRI shoulder without contrast, right TECHNIQUE: Multiplanar multisequence imaging through an upper extremity joint without contrast. INDICATION: Right shoulder pain PRIOR: None FINDINGS: Rotator Cuff: Supraspinatus tendon appears attenuated posteriorly likely representing a partial-thickness undersurface tear likely involving at least half of the fiber thickness. Labrum: Posterior labrum is degenerated, frayed, and likely torn. Long biceps tendon: The long biceps tendon is intact and not displaced from the groove. Acromioclavicular joint: AC joint is intact and mildly degenerated. Acromial morphology is flat, type I. Axillary pouch: The axillary pouch is deep. There is a joint effusion. There are intra-articular bodies measuring up to 5 mm diameter. Articular cartilage: Diffuse grade 2 and grade III chondromalacia is present along the medial and central humeral head, sparing the far inferior margin and superior lateral humeral head. Deep partial thickness articular cartilage defect is present in the anterior glenoid. Bones/Marrow: There are large humeral head marginal osteophytes and small glenoid osteophytes. Degenerative cystic changes present in the anterior superior humeral head. There is reactive marrow signal change along the posterior humeral neck. Soft tissues: There is no muscle edema, fatty streaking, or atrophy. MR/MR shoulder RT wo con IMPRESSION: Suspected undersurface tear of posterior fibers of supraspinatus tendon involving more than half the tendon thickness. Moderate degenerative changes in the glenohumeral joint. There is a joint effusion with intra-articular bodies in the axillary pouch. Posterior labrum is degenerated and frayed. Electronically signed by: Александр Daniel MD 04/26/2025 06:21 PM EDT
--- OUTSIDE RECORDS SUMMARY | 2025-04-26 08:39 | XMS_ITS | Data Portability ---
Author Organization ID - [facility], [place] [facility] Address [address] [place] [address] Care Team Providers Care Shoe Cobbler Name Role Phone PHANI TREJO Primary Care [...] months. She has a big trip to [facility] coming up and if she feels [...] By Organization Details Last Modified Time 09/10/2018 [id number] knee arthritis: care instructions [email or web address] Not available 09/10/2018 18:07:08 knee pain or injury: care instructions [email or web address] Not available 09/10/2018 18:07:08 09/17/2018 [id number] knee arthritis: care instructions [email or web address] Not available 09/17/2018 12:58:03 knee pain or injury: care instructions [email or web address] Not available 09/17/2018 12:58:03 Reason for Referral None Reported. Results Created Date Observation Date Name Description Value Unit Range Abnormal Flag Note LastModifiedBy Organization Detail LastModifiedTime 09/10/20 18 knee RT No observ ation record ed. [email or web address] [address], [address] 09/11/2018 12:45:01 Result Notes None recorded. Problems Name Problem SNOMED Code Status Onset Date Resolution Date Notes Provider Name and Address Organization Details Recorded Time Malignant neoplastic disease 953864881 Active 2008 endometri al; Recorded 9 9:50AM by Claudia Van, Office Visit; Promoted; acuity set as * Not Available [facility] 7 22:47:11 Migraine 62756506 Active 2008 Recorded 01/13/200 9 9:50AM by Claudia Van, Office Visit; Promoted; acuity set as * Not Available [facility] 7 22:47:11 Epilepsy 53013857 Active 2008 Recorded 9 9:50AM by Claudia Van, Office Visit; Promoted; acuity set as * Not Available [facility] 7 22:47:11 Wears glasses 116875020 Active 2008 Recorded 9 9:50AM by Claudia Van, Office Visit; Promoted; acuity set as * Not Available [facility] 7 22:47:11 Does use contact lenses 092248149 Active 2008 Recorded 9 9:50AM by Claudia Van, Office Visit; Promoted; acuity set as * Not Available [facility] 7 22:47:11 Absent tonsils Active 2008 Recorded 9 9:50AM by Claudia Van, Office Visit; Promoted; acuity set as * Not Available [facility] 7 22:47:11 History of appendicit is 546843593 Active 2008 Recorded 9 9:50AM by Claudia Van, Office Visit; Promoted; acuity set as * Not Available [facility] 7 22:47:55 Past history of section 282671005 Active 2008 Recorded 9 9:50AM by Claudia Van, Office Visit; Promoted; acuity set as * Not Available [facility] 7 22:47:55 History of total hysterecto 365690029 Active 2008 Recorded 9 9:50AM by Claudia Van, Office Visit; Promoted; acuity set as * Not Available [facility] 7 22:47:55 Knee pain Active 2017 Darius NAVARRETE MD [address] [facility] [address], [place], [address] , [facility] 8 09:56:21 Osteoarthr itis of knee 806227248 Active 2017 Darius NAVARRETE MD [address] [facility],[address], [place], [address] , [facility] 8 09:56:54 Notes:11/15/2008: Wrist/Hand surgery (unspecified) ; OnsetDate: 11/15/2008; Recorded 11/15/2008 9:50AM by Claudia Van, Office Visit; Promoted; acuity set as * Problem Notes None recorded. Procedures Surgical History Date Name Laterality Status Provider Name and Address Organization Details Recorded Time 09/10/20 18 LDD Knee Right completed L PRINCESS NAVARRETE MD [address] [facility],[address], [place], [address], [facility] 09/10/2018 18:06:44 Caesarean Section completed [facility] 09/10/2018 09:44:25 Unlisted procedure breast completed [facility] 09/10/2018 09:44:41 Hysterectomy completed [facility] 09/10/2018 09:44:46 Tibial arthroscopy/surg jaya completed [facility] 09/10/2018 09:45:30 Shoulder Surgery completed [facility] 09/10/2018 09:46:27 Imaging Results None recorded. Procedure Notes None recorded. Medical Equipment None Reported. Allergies Allergen ID Allergen Name Allergen Category Reaction Reaction Severity Criticality Documentation Date Start Date Code Code System Note Provider Name and Address Organization Details Recorded Time 854633 adhesive tape environme nt,medica tion Not available Not available Not available 12/30/20162008 08963 UNK Comme nt: Recor ded 11/15 9:50A M by Claudia Lynn es, Offic e Visit ; [employer] [place]; Signi fican ce:*; Not Available [facility] 7 20:16:30 931049 Advil medicatio n Not available Not available Not available 12/30/20162008 23863 0 RxNorm Comme nt: Recor ded 11/15 9:50A M by Claudia Lynn es, Offic e Visit ; [employer] [place]; Signi fican ce:*; Not Available [facility] 7 20:16:30 030892 Bactrim medicatio n Not available Not available Not available 12/30/20162008 71890 9 RxNorm Comme nt: Recor ded 11/15 9:50A M by Claudia Lynn es, Offic e Visit ; [employer] [place]; Tye siegel ce:*; Not Available [facility] 20:16:30 971589 adhesive tape environme nt,medica tion Not available Not available Not available 10/03/20172008 47290 UNK Comme nt: Recor ded 11/15 9:50A M by Claudia Lynn es, Offic e Visit Prom oted Signruben siegel ce: *; Not Available [facility] 01:39:27 Medications Name Sig Start Date Stop [...] Updated DateTime 09/10/2018 165.1 cm 27.5 kg/m2 56916.74 g 97.2 [degF] Rochelle Lay [facility] 09/10/2018 09:35:26 Date Recorded Body height Body mass index (BMI) Body weight Body temperature Provider Name and Address Organization Details Last Updated DateTime 09/17/2018 165.1 cm 27.5 kg/m2 28819.74 g 96.7 [degF] Darius NAVARRETE MD [address] [place] [address],[place] [address], [place], [address] [facility] 09/17/2018 09:18:36 Social History [...] SNOMED-CT Code Diagnosis ICD10 Code Diagnosis Note [id number] Darius NAVARRETE MD [place] [address] [place] [address] 09/10/2018 09:03:46 09/10/2018 11:00:57 Knee pain 25288646 M25.569 Osteoarthr itis of knee 878383039 M17.11 [id number] Darius NAVARRETE MD [place] [address] [facility] [place] [address] 09/17/2018 09:12:16 09/17/2018 10:02:49 Osteoarthritis of knee 155699971 M17.11 Knee pain 16635011 M25.5 69 Health Concerns Section Related Observation LastModified by Organization Detai ls LastModified Time None Recorded Concern Status LastModified by Organization Details LastModified Time None Recorded Advance Directives Directive None Recorded Payers Insurance Date Sequence Insurance Name Policy Number Policy Villasenor Covered Member ID Villasenor Member ID Guarantor Name 09/28/2018 1 [facility]: [facility] [place] [id number] Kirstin Chávez [id number] Kirstin Chávez Notes Date Note Type [...] Tylenol and aspirin. 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 Patient reporting feeling 90% better. L PRINCESS NAVARRETE MD [address] [place] [address],[address], [place], [address], [facility] 09/17/2018 12:58:06 OBGyn Episode No OBEpisode recorded.
[2025-04-26 08:40] LABS: Hematocrit 40.4 % (37.0-47.0); Mean Corpuscular HGB Conc 32.2 g/dl (31.0-35.0); Mean Corpuscular Volume 93.3 fL (80.0-98.0); Mean Platelet Volume 11.1 fL (9.4-12.3); Platelet Count 274 X10*3/uL (160-400); Red Blood Count 4.33 X10*6/uL (4.20-5.50); White Blood Count 4.6 X10*3/uL (4.8-10.8)
[2025-04-26 09:11] LABS: Alanine Aminotransferase 23 U/L (0-31); Albumin Level 4.3 g/dL (3.5-5.0); Alkaline Phosphatase 97 U/L (39-117); Anion Gap 10 (12-20); Aspartate Amino Transferase 20 U/L (5-31); Bilirubin Total 0.3 mg/dL (0.0-1.0); Blood Urea Nitrogen 15 mg/dL (9-16); Calcium 9.2 mg/dL (8.4-10.2); Carbon Dioxide 30 mmol/L (22-29); Chloride 104 mmol/L (96-108); Cholesterol 219 mg/dL (<200); Estimated Glomerular Filt Rate > 60; Glucose Fasting 81 mg/dL (60-99); HDL Cholesterol 55 mg/dL (>40); LDL Cholesterol Calculated 140 mg/dL (<100); Potassium 4.1 mmol/L (3.3-5.1); Sodium 140 mmol/L (135-145); Total Protein 7.2 g/dL (6.5-8.0); Triglycerides 120 mg/dL (<150)
== END 2025-04-26 08:26 | disposition home or self-care (01) ==
LOC: HO.MRI 08:25
PROVIDERS: PCP Physician Assistant; Visit Provider Physician Assistant
DX: M75.111 Incomplete rotator cuff tear or rupture of right shoulder, not specified as traumatic (principal); E78.9 Disorder of lipoprotein metabolism, unspecified
CPT/HCPCS: 36415; 73221; 80053; 80061; 85027

== ENCOUNTER → 2025-04-26 16:36 | Outpatient (BNV) | payer MEDICARE, SELFPAY | PROVIDERS: PCP Physician Assistant; Visit Provider Radiology Diagnostic Radiology | DX: M19.011 Primary osteoarthritis, right shoulder (principal); M25.411 Effusion, right shoulder | CPT/HCPCS: 73221 ==

== ENCOUNTER 2025-05-25 12:14 | Outpatient (REF) | payer MEDICARE, SELFPAY ==
--- NOTE | ~2025-05-25 | US_ITS ---
EXAMINATION: MM DIAGNOSTIC DIGITAL BREAST TOMOSYNTHESIS, BILATERAL Limited right breast ultrasound. CLINICAL INFORMATION: Right breast palpable lump. History of bilateral benign excisional biopsies. COMPARISON: Mammography: Comparison is made with relevant prior exams. TECHNIQUE: Digital breast mammography with tomosynthesis is performed in both the craniocaudal and mediolateral oblique views along with computer-aided detection (CAD). FINDINGS: There are scattered areas of fibroglandular density (ACR BI-RADS breast composition Category b). Bilateral postsurgical changes are stable. Left: No suspicious masses calcifications or other abnormal findings. Post surgical changes are stable. Right: BB marker in the lower inner breast with an underlying superficial focal asymmetry. Postsurgical changes are stable. No other suspicious calcifications or other abnormal findings. Targeted color Doppler ultrasound in the right breast area of patient's palpable lump demonstrates a intradermal hypoechoic cyst consistent with a sebaceous cyst/epidermal inclusion cyst at 2:00 9 cm from nipple measuring 4 x 3 x 4 mm. Results are provided to the patient at time of visit by the technologist. US/US breast RT limited mamm only IMPRESSION: Left: Benign. Right: Intradermal Sebaceous cyst/epidermal inclusion cyst correlating with the patient's palpable lump. Benign. Recommend clinical evaluation and follow-up. ASSESSMENT: BI-RADS BI-RADS 2 - Benign Findings RECOMMENDATION: 1. Patient should be managed based on the clinical impression. 2. Otherwise, routine annual screening mammography. This patient's information was entered into a reminder system with a target due date for their next mammogram. Electronically signed by: Dipti Simmons DO 05/25/2025 01:21 PM EDT
--- OUTSIDE RECORDS SUMMARY | 2025-05-25 12:46 | XMS_ITS | Encounter Summary ---
Author Organization [facility] Address [address] [place] [address] Phone Care Team Providers Care Antenna Machine Operator Name Role Phone Renee Trejo MD Primary Care Provider + Khushi De León NP Primary Care Provider Reason for Visit * Reason Comments Other Encounter Details Date Type Department Care Team (Late st Contact Info) Description 04/28/2016 [facility], Department of Neurology [address] [place] [address] Venita Holt MD [address] [place] [phone] [email or web address] Other Social History Tobacco Use Types Packs/Day Years Used Date Smoking Tobacco: Former Cigarettes Q uit: 11/03/1981 Alcohol Use Standard Drinks/Week Comments Not Asked 0 (1 standard drink = 0.6 oz pur e alcohol) Comments Unknown Sex and Gender Information Value Date Recorded Sex Assigned at Not on file Legal Sex Female 6:26 PM EST Gender Identity Not on file Sexual Orientation Not on file documented as of this encounter Plan of Treatment Not on file documented as of this encounter Visit Diagnoses Not on filedocumented in this encounter Care Teams Antenna Machine Operator Relationship Specialty Start Date End Date Renee Trejo MD [address] [address] [email or web address] PCP - General 03/09/15 09/05/24 Khushi De León NP [address] [address] [email or web address] PCP - General Nurse Practitioner 09/06/24 documented as of this encounter Additional Source Comments The information contained in this document represents components of the legal health record. It is not the complete legal health record.[facility]
--- OUTSIDE RECORDS SUMMARY | 2025-05-25 12:46 | XMS_ITS | Data Portability ---
Author Organization [place] - [facility], [place] [facility] Address [address] [place] [address] Care Team Providers Care Account Technician Name Role Phone PHANI TREJO Primary Care [...] months. She has a big trip to [facility] coming up and if she [...] By Organization Details Last Modified Time 09/10/2018 [id number] knee arthritis: care instructions [email or web address] Not available 09/10/2018 18:07:08 knee pain or injury: care instructions [email or web address] Not available 09/10/2018 18:07:08 09/17/2018 [id number] knee arthritis: care instructions [email or web address] Not available 09/17/2018 12:58:03 knee pain or injury: care instructions [email or web address] Not available 09/17/2018 12:58:03 Reason for Referral None Reported. Results Created Date Observation Date Name Description Value Unit Range Abnormal Flag Note LastModifiedBy Organization Detail LastModifiedTime 09/10/20 18 knee RT No observ ation record ed. [email or web address] [address], [address] 09/11/2018 12:45:01 Result Notes None recorded. Problems Name Problem SNOMED Code Status Onset Date Resolution Date Notes Provider Name and Address Organization Details Recorded Time Malignant neoplastic disease 349480832 Active 2008 endometri al; Recorded 9 9:50AM by Claudia Van, Office Visit; Promoted; acuity set as * Not Available [facility] 7 22:47:11 Migraine 65002008 Active 2008 Recorded 01/13/200 9 9:50AM by Claudia Van, Office Visit; Promoted; acuity set as * Not Available [facility] 7 22:47:11 Epilepsy 99408259 Active 2008 Recorded 9 9:50AM by Claudia Van, Office Visit; Promoted; acuity set as * Not Available [facility] 7 22:47:11 Wears glasses 036187507 Active 2008 Recorded 9 9:50AM by Claudia Van, Office Visit; Promoted; acuity set as * Not Available [facility] 7 22:47:11 Does use contact lenses 255771946 Active 2008 Recorded 9 9:50AM by Claudia Van, Office Visit; Promoted; acuity set as * Not Available [facility] 7 22:47:11 Absent tonsils Active 2008 Recorded 9 9:50AM by Claudia Van, Office Visit; Promoted; acuity set as * Not Available [facility] 7 22:47:11 History of appendicit is 309941210 Active 2008 Recorded 9 9:50AM by Claudia Van, Office Visit; Promoted; acuity set as * Not Available [facility] 7 22:47:55 Past history of section 072173650 Active 2008 Recorded 9 9:50AM by Claudia Van, Office Visit; Promoted; acuity set as * Not Available [facility] 7 22:47:55 History of total hysterecto 025070246 Active 2008 Recorded 9 9:50AM by Claudia Van, Office Visit; Promoted; acuity set as * Not Available [facility] 7 22:47:55 Knee pain Active 2017 Darius NAVARRETE MD [address] [facility] [address], [place], [address] , [facility] - [facility] 8 09:56:21 Osteoarthr itis of knee 391216309 Active 2017 Darius NAVARRETE MD [address] [facility],[address], [place], [address] , [facility] 8 09:56:54 Notes:11/15/2008: Wrist/Hand surgery (unspecified) ; OnsetDate: 11/15/2008; Recorded 11/15/2008 9:50AM by Claudia Van, Office Visit; Promoted; acuity set as * Problem Notes None recorded. Procedures Surgical History Date Name Laterality Status Provider Name and Address Organization Details Recorded Time 09/10/20 18 LDD Knee Right completed L PRINCESS NAVARRETE MD [address] [facility],[address], [place], [address], [facility] 09/10/2018 18:06:44 Caesarean Section completed [facility] 09/10/2018 09:44:25 Unlisted procedure breast completed [facility] 09/10/2018 09:44:41 Hysterectomy completed [facility] 09/10/2018 09:44:46 Tibial arthroscopy/surg jaya completed [facility] 09/10/2018 09:45:30 Shoulder Surgery completed [facility] 09/10/2018 09:46:27 Imaging Results None recorded. Procedure Notes None recorded. Medical Equipment None Reported. Allergies Allergen ID Allergen Name Allergen Category Reaction Reaction Severity Criticality Documentation Date Start Date Code Code System Note Provider Name and Address Organization Details Recorded Time 052373 adhesive tape environme nt,medica tion Not available Not available Not available 12/30/20162008 50577 UNK Comme nt: Recor ded 11/15 9:50A M by Claudia Lynn es, Offic e Visit ; [employer] [place]; Signi fican ce:*; Not Available [facility] 7 20:16:30 616992 Advil medicatio n Not available Not available Not available 12/30/20162008 55233 0 RxNorm Comme nt: Recor ded 11/15 9:50A M by Claudia Lynn es, Offic e Visit ; [employer] [place]; Signi fican ce:*; Not Available [facility] 7 20:16:30 501956 Bactrim medicatio n Not available Not available Not available 12/30/20162008 01821 9 RxNorm Comme nt: Recor ded 11/15 9:50A M by Claudia Lynn es, Offic e Visit ; [employer] [place]; Signi ficjeovany ce:*; Not Available [facility] 7 20:16:30 105944 adhesive tape environme nt,medica tion Not available Not available Not available 10/03/20172008 88478 UNK Comme nt: Recor ded 11/15 9:50A M by Claudia Lynn es, Offic e Visit Prom [facility]ted Signi ficjeovany ce: *; Not Available [facility] 7 01:39:27 Medications Name Sig [...] Updated DateTime 09/10/2018 165.1 cm 27.5 kg/m2 84778.74 g 97.2 [degF] [facility] 09/10/2018 09:35:26 Date Recorded Pain severity - 0-10 verbal numeric rating [Score] - Reported Provider Name and Address Organization Details Last Updated DateTime 09/10/2018 9 Not Available [facility] 8 05:59:43 Date Recorded Body height Body mass index (BMI) Body weight Body temperature Provider Name and Address Organization Details Last Updated DateTime 09/17/2018 165.1 cm 27.5 kg/m2 06733.74 g 96.7 [degF] Darius NAVARRETE MD [address] [place] [address],[place] [address], [place], [address] [facility] 09/17/2018 09:18:36 Date Recorded Pain severity - 0-10 verbal numeric rating [Score] - Reported Provider Name and Address Organization Details Last Updated DateTime 09/17/2018 7 Not Available [facility] 8 05:36:26 Social History None recorded. Functional Status None recorded. Mental Status None recorded. Family History Relationship Description Onset Age of this Age Resolved Age Notes LastModified by Organization Details LastModified Time Father Hypertensive disorder [email or web address] Not available 2017 09:43:46 Mother Hypertensive disorder [email or web address] Not available 2017 09:43:46 Medical History Condition Response Diabetes N Pacemaker N Blood Clot N Heart Disease N Cancer Y Hypertension N Gynecological HistoryNo gynecological history recorded. Obstetrics History GPAL:G 0 P 0 0 0 0 Past Encounters Encounter ID Performer Location Encounter Start Date Encounter Closed Date Diagnosis/Indication Diagnosis SNOMED-CT Code Diagnosis ICD10 Code Diagnosis Note [id number] Darius NAVARRETE MD [address] [address] 09/10/2018 09:03:46 09/10/2018 11:00:57 Knee pain 13040521 M25.569 Osteoarthr itis of knee 677951003 M17.11 [id number] Darius NAVARRETE MD [address] [address] 09/17/2018 09:12:16 09/17/2018 10:02:49 Osteoarthritis of knee 357841025 M17.11 Knee pain 02986893 M25.5 70 Health Concerns Section Related Observation LastModified by Organization Detai ls LastModified Time None Recorded Concern Status LastModified by Organization Details LastModified Time None Recorded Advance Directives Directive None Recorded Payers Insurance Date Sequence Insurance Name Policy Number Policy Villasenor Covered Member ID Villasenor Member ID Guarantor Name 09/28/2018 1 [facility] [id number] Kirstin Chávez [id number] Kirstin Chávez Notes Date Note Type [...] Tylenol and aspirin. Darius NAVARRETE MD [address] [facility],[address], [place], [address], [facility] 09/10/2018 18:07:11 09/17/2018 text/html Follow-up for this 63-year-old being treated for right knee pain, chondromalacia patella status post intra-articular corticosteroid injection 1 week ago. Patient reporting feeling 90% better. Darius NAVARRETE MD [address] [facility],[address], [place], [address], [facility] 09/17/2018 12:58:06 OBGyn Episode No OBEpisode recorded.
== END 2025-05-25 12:15 | disposition home or self-care (01) ==
LOC: HO.MAMMO 12:14
PROVIDERS: Visit Provider Physician Assistant
DX: N63.12 Unspecified lump in the right breast, upper inner quadrant (principal)
CPT/HCPCS: 76642; 77062; 77066

== ENCOUNTER → 2025-05-25 12:30 | Outpatient (BNV) | payer MEDICARE, SELFPAY | PROVIDERS: Visit Provider Internal Medicine | DX: N63.11 Unspecified lump in the right breast, upper outer quadrant (principal); Z98.890 Other specified postprocedural states | CPT/HCPCS: 76642; 77066; G0279 ==

== ENCOUNTER 2025-06-08 14:00 | Outpatient (RCR) | payer MEDICARE, SELFPAY ==
--- NOTE | 2025-07-12 09:14 | MHC.PT.DC ---
[facility] [place] [facility] [place] [facility] [place] [facility] [address] Marcella Kunz [address] [phone] F: [phone] F: [phone] F: [phone] F: [phone] Physical Therapy Discharge Report Diagnosis: RIGHT SHOULDER PAIN (KP) Date of Surgery: Date of Evaluation: 05/10/25 Date of Discharge: 07/12/25 Treatments to Date: 5 Cancellations to Date: 0 No Shows to Date: 0 Discharge Status: Improved Function Independent with HEP Discharge Summary: MYRA HAD BEEN MAKING SLOW BUT STEADY PROGRESS IN PT ALTHOUGH PAIN CONT. SHE WAS TO F/U WITH ORTHO AT END OF JUNE. SHE HAS NOT CONTACTED OUR OFFICE IN > 30 DAYS AND WE WILL THEREFORE D/C CURRENT CHART AND RE-EVALUATE PRN Electronically signed by: DARSHANA AGOSTO PT DPT Please sign and return to therapist. Thank you for your referral.
--- NOTE | 2025-07-12 09:14 | MHC.PT.DC ---
[facility] [place] Office [place] Office [place] Office [address] Marcella Kunz [address] [phone] F: [phone] F: [phone] F: [phone] F: [phone] Physical Therapy Discharge Report Diagnosis: RIGHT SHOULDER PAIN (KP) Date of Surgery: Date of Evaluation: 05/10/25 Date of Discharge: 07/12/25 Treatments to Date: 5 Cancellations to Date: 0 No Shows to Date: 0 Discharge Status: Improved Function Independent with HEP Discharge Summary: MYRA HAD BEEN MAKING SLOW BUT STEADY PROGRESS IN PT ALTHOUGH PAIN CONT. SHE WAS TO F/U WITH ORTHO AT END OF JUNE. SHE HAS NOT CONTACTED OUR OFFICE IN > 30 DAYS AND WE WILL THEREFORE D/C CURRENT CHART AND RE-EVALUATE PRN Electronically signed by: DARSHANA AGOSTO PT DPT Please sign and return to therapist. Thank you for your referral.
== END 2025-07-12 09:14 | disposition home or self-care (01) ==
LOC: HO.PT 14:00
PROVIDERS: PCP Physician Assistant; Visit Provider Physician Assistant
DX: S49.91XD Unspecified injury of right shoulder and upper arm, subsequent encounter (principal); S49.92XD Unspecified injury of left shoulder and upper arm, subsequent encounter; M77.8 Other enthesopathies, not elsewhere classified
CPT/HCPCS: 97110; 97140; 97161; 97535

== ENCOUNTER 2025-06-27 12:54 | Outpatient (AMB) | payer MEDICARE, SELFPAY ==
--- NOTE | 2025-06-27 13:00 | MHC.OFFVIS ---
Vital Signs 06/27/25 13:06 Height 5 ft Weight 168 lb BMI 32.8 Intake Visit Reasons: New Prob-Right shoulder pain Intake Note: Kirstin is a 70 year old right hand dominant female who presents today for a New Problem visit with complaints of Right Shoulder Pain. Patient reports that she had previous surgery on the right shoulder, this was done in [place] due to limited and painful ROM. She took a fall last year lading on the outstretched right arm. Currently she is having pain in the shoulder, worsened with ROM, lifting and sleeping on the right side. She has done PT which was mildly helpful but she thinks that she may have overused the shoulder after completion of PT increasing the pain in the shoulder. Allergies Gadolinium-Containing Contrast Medi Allergy (Severe, Verified 04/11/25 13:34) allergice ibuprofen (From Advil) Adverse Reaction (Intermediate, Verified 04/11/25 13:34) sensitivity adhesive tape Adverse Reaction (Unknown, Verified 04/11/25 13:34) Sensitivity codeine Adverse Reaction (Verified 04/11/25 13:34) Unknown Sulfa (Sulfonamide Antibiotics) Adverse Reaction (Verified 04/11/25 13:34) Unknown MRI dye Adverse Reaction (Uncoded 04/11/25 13:34) warmth HPI HPI New Prob-Right shoulder pain: Details: Kirstin is a 70 year old right hand dominant female who presents today for a New Problem visit with complaints of Right Shoulder Pain. Patient reports that she had previous surgery on the right shoulder, this was done in [place] due to limited and painful ROM. She took a fall last year lading on the outstretched right arm. Currently she is having pain in the shoulder, worsened with ROM, lifting and sleeping on the right side. She has done PT which was mildly helpful but she thinks that she may have overused the shoulder after completion of PT increasing the pain in the shoulder. [facility] Medical History MDD (major depressive disorder), recurrent episode, mild Uterine cancer Arthritis Back pain GERD (gastroesophageal reflux disease) Sleep apnea Microscopic hematuria Hyperlipemia Refractive error Grand mal seizure Chronic headaches Hemorrhoids Depression Osteoarthritis of knee Surgical History Hx of shoulder surgery Hx of hand surgery History of tonsillectomy and adenoidectomy History of total abdominal hysterectomy H/O dilation and curettage H/O section H/O colonoscopy S/P arthroscopy of right knee Family History Father Glaucoma Maternal Aunt CAD (coronary artery disease) Paternal Grandmother CAD (coronary artery disease) Maternal Aunt Breast cancer Mother No problems noted. Maternal Grandmother Cancer of brain Social History Household Members: Spouse Housing: House Are you a primary insurance healthcare consultant to a significant other at home: No Do you presently have visiting nurse or other home services: No Alcohol intake: current Alcohol intake frequency: does not drink Alcohol type: wine Comment: pt rings appropriately Patient Tobacco Use Status: Former Tobacco user Tobacco use type: Cigarette e-Cigarette/Vaping Use: Never Used Second Hand Smoke Exposure: Yes service: No Current occupational status: retired Current occupational exposures/hazards: No Cognitive needs: No Hearing needs: No Vision needs: No Physical Exam Vital Signs: BMI result Body Mass Index 32.8 Extrem Other: Abduction to 80 degrees External rotation to 30 degrees Positive Cantu and Neer Painful but negative empty can Office Procedures Joint Inj/Aspir; Non-Pain Clin Joint Injection/Drain Details: Injected 1 mL of Decadron and 3 mL 1% lidocaine and 3 mL of 0.25% Marcaine. Site was prepped using aseptic technique. Patient tolerated the procedure well. Shoulders, Hips, Knees, Shoulder Injection Large joint 70674: Right Shoulder Coding Procedure code (CPT) selection complete Assessment & Plan Assessment & Plan (1) Internal derangement of right shoulder: Code(s): M24.811 - Other specific joint derangements of right shoulder, not elsewhere classified Category: Medical Plan: Donte is a 70-year-old woman with right shoulder pain. She has glenohumeral arthritis and partial-thickness rotator cuff tearing. Her MRI mostly confirms generalized degenerative changes of the shoulder. There is no surgery warranted at this time. She has been doing physical therapy and she should continue to do so. I did inject her subacromial space. If this is not sufficiently helpful she will contact me we will consider an intra-articular injection. Coding Level of Care Code Est Pt Level 3 (76200) Diagnoses Internal derangement of right shoulder M24.811 CPT Codes Shoulders, Hips, Knees, - Shoulder Injection Large joint 24348: Right Shoulder ([id number])
[2025-06-27 13:06] VITALS: BMI 32.8
--- OUTSIDE RECORDS SUMMARY | 2025-06-27 14:05 | XMS_ITS | Encounter Summary ---
Author Organization [facility] Address [address] [place] [address] Phone Care Team Providers Care Canal Boat Operator Name Role Phone Renee Trejo MD Primary Care Provider + Khushi De León NP Primary Care Provider Reason for Visit * Reason Comments Other Encounter Details Date Type Department Care Team (Late st Contact Info) Description 04/28/2016 [facility], Department of Neurology [address] [place] [address] Venita Holt MD [address] [place] [phone] [email or web address] Other Social History Tobacco Use Types Packs/Day [...] on filedocumented in this encounter Care Teams Canal Boat Operator Relationship Specialty Start Date End Date Renee Trejo MD [address] [address] [email or web address] PCP - General 03/09/15 09/05/24 hKushi De León NP [address] [address] [email or web address] PCP - General Nurse Practitioner 09/06/24 documented as of this encounter Additional Source Comments The information contained in this document represents components of the legal health record. It is not the complete legal health record.[facility]
== END 2025-06-27 13:40 | disposition home or self-care (01) ==
LOC: HO.HOS 12:55
PROVIDERS: PCP Physician Assistant; Visit Provider Orthopaedic Surgery
DX: M24.811 Other specific joint derangements of right shoulder, not elsewhere classified (principal)
CPT/HCPCS: 20610; 99213

== ENCOUNTER → 2025-06-27 12:54 | Outpatient (BNVA) | payer MEDICARE, SELFPAY | PROVIDERS: PCP Physician Assistant; Visit Provider Orthopaedic Surgery | DX: M25.511 Pain in right shoulder (principal); M24.811 Other specific joint derangements of right shoulder, not elsewhere classified | CPT/HCPCS: 20610; 99212; J0665; J1100; J2003 ==